=== PATIENT | male | born 1950 | race Caucasian/White ===

== ENCOUNTER 2022-02-10 10:18 | Inpatient (IN) | payer BC, MEDICARE ==
[2022-02-10] MEDS: HEPARIN SOD,PORK IN 0.45% NACL 25,000 UNIT in 0.45% NACL 1 250ML.BAG IV SCH (19:05)
[2022-02-10 19:24] LABS: Basophils % (A) 0 %; Eosinophils # (A) 0.1 k/uL (0-0.7); Eosinophils % (A) 1 %; HCT 42.4 % (39.0-53.0); HGB 14.5 gm/dL (13.0-17.5); Lymphocytes # (A) 1.4 k/uL (1.0-4.8); Lymphocytes % (A) 20 %; MCH 30.9 pg (25.0-35.0); MCHC 34.2 g/dL (31.0-37.0); MCV 90.3 fL (80.0-100.0); Mean Platelet Volume 9.6; Monocytes # (A) 0.3 k/uL (0-1.0); Monocytes % (A) 4 %; Neutrophils # (A) 5.3 k/uL (1.3-7.7); Neutrophils % (A) 74 %; Platelet Count 165 k/uL (150-450); RDW 13.7 % (11.5-15.5); WBC 7.3 k/uL (3.8-10.6)
--- NOTE | 2022-02-10 20:16 | HP ---
HISTORY AND PHYSICAL DATE OF ADMISSION: 02/10/2022 CHIEF COMPLAINT: Orthostatic dizziness. HISTORY OF PRESENT ILLNESS: This is the first known admission for this 71-year-old white male who has been in fairly good health. He was admitted to [facility] last night when he presented with orthostatic dizziness. He denied any chest pain, palpitations, diaphoresis, nausea, vomiting, pain in the jaw, arms, etc. FAMILY HISTORY: He has a family history of heart disease, but he has had none. MEDICATIONS: He takes Flomax for urinary retention. No other medications. ALLERGIES: He is not allergic to any medication. PAST SURGICAL HISTORY: The only surgery he has ever had was removal of a lipoma. SOCIAL HISTORY: He does not smoke or drink. Both his parents had coronary artery disease. He has had no history of any hypertension, hyperlipidemia, palpitations, neurologic problems, etc. PHYSICAL EXAMINATION: Blood pressure 137/85 with a pulse of 74, respirations of 19. He is afebrile. In general he appeared to be well developed, well nourished, no acute distress. Skin color is normal skin is warm, dry. Lymph nodes are not enlarged. Head, ears, eyes, nose, mouth and throat were normal. Neck veins are not distended. Thyroid isn't enlarged. Chest is clear. Cardiac exam is normal sinus rhythm and no murmurs or extra sounds. There is no S3 or S4. The abdomen is soft and nontender without visceromegaly or masses. Bowel sounds present. Extremities are normal. Neurologically he is intact. IMPRESSION: 1. Triple-vessel coronary artery disease. 2. Labyrinthitis. 3. Family history of heart disease. PLAN: 1. Bedrest. 2. Consult with Cardiac surgery and Cardiology. 3. Lipid profile. 4. Prep for coronary artery bypass graft. MMODL / IJN: [id number] /
[2022-02-10] MEDS: HEPARIN SODIUM 1,000 UN/ML (10ML VL) IV PRN (21:45)
[2022-02-10 22:31] LABS: Chol/HDL Ratio 5.39 Ratio; LDL Cholesterol,Calculated 146.5 mg/dL (0.0-131.0)
[2022-02-10] MEDS: SODIUM CHLORIDE 0.9% 1,000 ML IV SCH (23:31)
[2022-02-11 06:31] LABS: Prothrombin Time 11.1 sec (9.0-12.0)
[2022-02-11] MEDS ORDERED: LOSARTAN 50 MG TAB PO SCH (09:00)
[2022-02-11 09:41] LABS: Appearance,Urine Clear (Clear); Bilirubin,Urine Negative (Negative); Blood,Urine Negative (Negative); Color,Urine Light Yellow; Glucose,Urine (UA) Negative (Negative); Ketones,Urine Negative (Negative); Leukocyte Esterase,Urine Negative (Negative); Nitrite,Urine Negative (Negative); PH, Urine 6.5 (5.0-8.0); Protein,Urine Negative (Negative); Specific Gravity,Urine 1.008 (1.001-1.035); Urobilinogen,Urine <2.0 mg/dL (<2.0)
[2022-02-11] MEDS: METOPROLOL TARTRATE 12.5 MG TAB PO SCH (09:41)
[2022-02-11] MEDS: ASPIRIN 81 MG PO SCH (09:41)
[2022-02-11] MEDS: TAMSULOSIN 0.4 MG CAP.ER.24H PO SCH (09:41)
[2022-02-11] MEDS: ATORVASTATIN 80 MG TAB PO SCH (09:41)
--- NOTE | 2022-02-11 09:49 | US ---
EXAMINATION TYPE: US carotid duplex BILAT DATE OF EXAM: 02/11/2022 COMPARISON: NONE CLINICAL HISTORY: preop cardiac surgery. dizziness EXAM MEASUREMENTS: RIGHT: Peak Systolic Velocity (PSV) cm/sec ----- Right CCA: 84.2 ----- Right ICA: 91.5 ----- Right ECA: 80.6 ICA/CCA ratio: 1.1 RIGHT: End Diastole cm/sec ----- Right CCA: 21.7 ----- Right ICA: 30.4 ----- Right ECA: 4.7 LEFT: Peak Systolic Velocity (PSV) cm/sec ----- Left CCA: 82.2 ----- Left ICA: 82.2 ----- Left ECA: 121 ICA/CCA ratio: 1.0 LEFT: End Diastole cm/sec ----- Left CCA: 17.6 ----- Left ICA: 28.9 ----- Left ECA: 7.9 VERTEBRALS (direction of flow): Right Vertebral: Antegrade Left Vertebral: Antegrade Rhythm: Normal Some mild intimal thickening is evident. Small plaque is in the left carotid bulb. No significant cameron nosis seen IMPRESSION: 1. No significant flow limiting stenosis based on velocities. Mild atheromatous plaquing intimal thi ckening is present. Criteria for Assigning % of Stenosis / Diameter reduction (Estimation based on the indirect measurements of the internal carotid artery velocities (ICA PSV). 1. Normal (no stenosis)=ICA PSV < 125 cm/s: ratio < 2.0: ICA EDV<40 cm/s. 2. Less than 50% stenosis=ICA PSV < 125 cm/s: ratio < 2.0: ICA EDV<40 cm/s. 3. 50 to 69% stenosis=ICA PSV of 125 to 230 cm/s: ration 2.0 ? 4.0: ICA EDV 40-100 cm/s. 4. Greater than 70% stenosis to near occlusion= ICA PSV > 230 cm/s: ratio > 4.0: ICA EDV > 100 cm/s. 5. Near occlusion= ICA PSV velocities may be low or undetectable: variable ratio and ICA EDV. 6. Total occlusion=unable to detect flow.
[2022-02-11 10:41] LABS: Basophils % (A) 0 %; Eosinophils # (A) 0.1 k/uL (0-0.7); Eosinophils % (A) 1 %; HCT 45.4 % (39.0-53.0); HGB 15.6 gm/dL (13.0-17.5); Lymphocytes # (A) 1.7 k/uL (1.0-4.8); Lymphocytes % (A) 27 %; MCH 30.9 pg (25.0-35.0); MCHC 34.3 g/dL (31.0-37.0); MCV 90.1 fL (80.0-100.0); Mean Platelet Volume 8.7; Monocytes # (A) 0.3 k/uL (0-1.0); Monocytes % (A) 6 %; Neutrophils # (A) 3.9 k/uL (1.3-7.7); Neutrophils % (A) 64 %; Platelet Count 171 k/uL (150-450); RBC 5.04 m/uL (4.30-5.90); RDW 13.7 % (11.5-15.5); WBC 6.1 k/uL (3.8-10.6)
[2022-02-11 10:55] LABS: Partial Thromboplastin Time 46.4 sec (22.0-30.0); Prothrombin Time 10.4 sec (9.0-12.0)
[2022-02-11 10:58] LABS: ALT 24 U/L (4-49); AST 34 U/L (17-59); African American GFR (CKD) 86 (>60 ml/min/1.73 sqM); Albumin 4.3 g/dL (3.5-5.0); Alkaline Phosphatase 94 U/L (38-126); Anion Gap 6 mmol/L; Blood Urea Nitrogen 14 mg/dL (9-20); Calcium 9.5 mg/dL (8.4-10.2); Carbon Dioxide 32 mmol/L (22-30); Chloride 105 mmol/L (98-107); Glucose 84 mg/dL (74-99); Magnesium 2.2 mg/dL (1.6-2.3); Non-African American GFR(CKD) 74 (>60 ml/min/1.73 sqM); Potassium 4.2 mmol/L (3.5-5.1); Sodium 143 mmol/L (137-145); Total Bilirubin 0.9 mg/dL (0.2-1.3); Total Protein 6.9 g/dL (6.3-8.2)
--- NOTE | 2022-02-11 11:04 | P.CRDCN ---
History of Present Illness History of present illness: HISTORY OF PRESENTING ILLNESS This is a pleasant 71-year-old male past medical history significant for BPH and vertigo. 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 We have been asked to see in consultation for CAD. Patient presents to [facility] as a transfer from [facility] for bypass surgery evaluation. Patient initially presented to [facility] with complaints of vertigo and dyspnea. He was found to have mild elevation of troponin as well as BNP. His EKG shows sinus mechanism with nonspecific STT wave changes. He has no prior documented history of CAD, nonsmoker, no history of hypertension, diabetes, stroke. He has a family history of father having a CABG in the 70s. Due to concern for possible NSTEMI patient underwent cardiac catheterization with Dr. Garrett which revealed distal left main 7080% stenosis. LAD: Second diagonal branch is large in caliber and has 80% stenosis. The proximal LAD area 99% stenosis, the distal LAD is diffuse diseased with an area of stenosis up to 90%. Left circumflex has diffuse disease of 4050%. The mid RCA has a 3040% plaque, distal RCA has intimal disease and at a bifurcation is 99% stenosis. Echocardiogram revealed an EF of 5560%, mild aortic regurgitation, mild mitral regurgitation, mild tricuspid regurgitation, RVSP of 30 mmHg, trace to mild pulmonic regurgitation no pericardial effusion. Patient seen and examined at bedside, no distress. He denies any symptoms of chest pain, shortness of breath, lightheadedness, dizziness. Patient is feeling well. No acute events overnight. Meds: He's currently maintained on aspirin 81 mg daily, atorvastatin 80 mg daily, IV heparin, losartan 50 mg daily, metoprolol tartrate 12.5 mg daily Labs: CBC unremarkable, sodium 143, potassium 4.2, BUN 14, serum creatinine 1.0, magnesium 2.2, triglycerides 24, cholesterol 2:30, LDL 146, HDL 42, UA negative REVIEW OF SYSTEMS At the time of my exam: CONSTITUTIONAL: Denies fever or chills. CARDIOVASCULAR: Denies chest pain, shortness of breath, orthopnea, PND or palpitations. RESPIRATORY: Denies cough. GASTROINTESTINAL: Denies abdominal pain, diarrhea, constipation, nausea or vom iting. MUSCULOSKELETAL: Denies myalgias. NEUROLOGIC: Denies numbness, tingling, headache or weakness. ENDOCRINE: Denies fatigue, weight change, polydipsia or polyurina. GENITOURINARY: Denies burning, hematuria or urgency with micturation. HEMATOLOGIC: Denies history of anemia or bleeding. PHYSICAL EXAMINATION Blood pressure 151/80, heart rate 57, afebrile, oxygen saturation 95% room air Patient maintained sinus mechanism with heart rate in the 50s CONSTITUTIONAL: No apparent distress. HEENT: Head is normocephalic. Pupils are equal, round. Sclerae anicteric. Mucous membranes of the mouth are moist. No JVD. No carotid bruit. CHEST EXAMINATION: Lungs are clear to auscultation. No chest wall tenderness is noted on palpation or with deep breathing. HEART EXAMINATION: Regular rate and rhythm. S1, S2 heard. No murmurs, gallops or rub. ABDOMEN: Soft, nontender. Positive bowel sounds. EXTREMITIES: 2+ peripheral pulses, no lower extremity edema and no calf tenderness. NEUROLOGIC EXAMINATION: Patient is awake, alert and oriented x3. SKIN: Right radial cath site clean dry intact no hematoma ASSESSMENT Severe Triple vessel coronary artery disease History of vertigo BPH Family history of coronary artery disease PLAN Continue aspirin, statin, losartan and beta marcin Continue IV Heparin CT Surgery consulted for bypass evaluation We will continue to monitor patient Further recommendations based on clinical course Nurse practitioner note has been reviewed by physician. Signing provider agrees with the documented findings, assessment, and plan of care. Past Medical History Past Medical History: Prostate Disorder Additional Past Medical History / Comment(s): Vertigo History of Any Multi-Drug Resistant Organisms: None Reported Additional Past Surgical History / Comment(s): lypoma rt shoulder 25yrs ago, arthroscopy lt knee forty years ago. Past Anesthesia/Blood Transfusion Reactions: No Reported Reaction Past Psychological History: No Psychological Hx Reported Smoking Status: Never smoker Past Alcohol Use History: Occasional Past Drug Use History: None Reported - Past Family History Mother Family Medical History: Coronary Artery Disease (CAD) Additional Family Medical History / Comment(s): "old age" Father Family Medical History: Coronary Artery Disease (CAD) Additional Family Medical History / Comment(s): CABG in his 70s Medications and Allergies Home Medications Medication Instructions Recorded Confirmed Type Tamsulosin HCl [Flomax] 0.4 mg PO HS 02/10/22 02/10/22 History Allergies Allergy/AdvReac Type Severity Reaction Status Date / Time No Known Allergies Allergy Verified 02/10/22 19:43 Physical Exam Vitals: Vital Signs Temp Pulse Resp BP Pulse Ox 02/11/22 08:00 57 L 16 151/80 95 02/11/22 04:00 98.8 F 55 L 16 164/79 94 L 02/11/22 02:00 58 L 18 02/11/22 00:00 98.0 F 58 L 18 169/85 96 02/10/22 22:36 98.2 F 56 L 16 150/77 95 02/10/22 20:00 56 L 16 02/10/22 18:23 57 L 16 138/65 Intake and Output 02/10/22 02/11/22 02/11/22 22:59 06:59 14:59 Intake Total 26.208 59.832 Balance 26.208 59.832 Intake: Intake, IV Titration 26.208 59.832 Amount Heparin Sod,Pork in 0.45% 26.208 59.832 NaCl 25,000 unit In 0.45 % NaCl 1 250ml.bag @ 12 UNITS/KG/HR 10.92 mls/hr IV .[id number] [facility] Rx#: [id number] Other: Voiding Method Toilet Toilet Toilet # Voids 1 3 Weight 91 kg 92.6 kg Results 02/11/22 10:12 Coagulation 02/10/22 02/10/22 02/11/22 Range/Units 19:12 19:12 00:08 PT 11.1 (9.0-12.0) sec APTT 33.1 H 145.5 H* (22.0-30.0) sec Lipids 02/10/22 Range/Units 19:05 Triglycerides 204.00 H (0.00-149.00) mg/dL Cholesterol 230.00 H (0.00-200.00) mg/dL HDL Cholesterol 42.70 (40.00-60.00) mg/dL Cholesterol/HDL Ratio 5.39 Ratio CBC 02/10/22 02/11/22 Range/Units 19:05 10:12 WBC 7.3 6.1 (3.8-10.6) k/uL RBC 4.70 5.04 (4.30-5.90) m/uL Hgb 14.5 15.6 (13.0-17.5) gm/dL Hct 42.4 45.4 (39.0-53.0) % Plt Count 165 171 (150-450) k/uL Current Medications Generic Name Dose Route Start Last Admin Trade Name Shirley PRN Reason Stop Dose Admin Aspirin 81 mg 02/11/22 09:00 02/11/22 09:41 Aspirin 81 Mg PO 81 mg DAILY [facility]ANSEL Administration Atorvastatin Calcium 80 mg 02/11/22 09:00 02/11/22 09:41 Atorvastatin 80 Mg Tab PO 80 mg DAILY [facility]ANSEL Administration Heparin Sodium (Porcine) 0 unit 02/10/22 18:48 02/10/22 21:45 Heparin Sodium 1,000 Un/Ml (10ml Vl) IV 4,000 unit PER PROTOCOL PRN Administration Low PTT Protocol Heparin Sodium/Sodium Chloride 250 mls @ 10.92 mls/hr 02/10/22 19:00 02/11/22 03:51 25,000 unit/ Sodium Chloride IV 11 units/kg/hr .[id number] [facility]AN[facility] 10.01 mls/hr Titration Protocol 12 UNITS/KG/HR Sodium Chloride 1,000 mls @ 20 mls/hr 02/10/22 19:00 02/10/22 23:31 Saline 0.9% IV Not Given .Q24H [facility] Losartan Potassium 50 mg 02/11/22 09:00 02/11/22 09:41 Losartan 50 Mg Tab PO 50 mg DAILY HANSEL Administration Metoprolol Tartrate 12.5 mg 02/11/22 09:00 02/11/22 09:41 Metoprolol Tartrate 12.5 Mg Tab PO 12.5 mg DAILY HANSEL Administration Tamsulosin HCl 0.4 mg 02/11/22 08:30 02/11/22 09:41 Tamsulosin 0.4 Mg Cap.Er.24h PO 0.4 mg [id number] HANSEL Administration Intake and Output 02/10/22 02/11/22 02/11/22 22:59 06:59 14:59 Intake Total 59.832 Balance 59.832 Intake: Intake, IV Titration 59.832 Amount Heparin Sod,Pork in 0.45% . 59.832 NaCl 25,000 unit In 0.45 % NaCl 1 250ml.bag @ 12 UNITS/KG/HR 10.92 mls/hr IV .[id number] [facility] Rx#: [id number] Other: Voiding Method Toilet Toilet Toilet # Voids 1 3 Weight 91 kg 92.6 kg 02/11/22 10:12
--- NOTE | 2022-02-11 11:16 | P.GSCN ---
History of Present Illness Consult date: 02/11/22 Reason for Consult: CAD with left main disease Requesting physician: Angelica Garrett History of present illness: This is a 71-year-old gentleman who has not followed with a primary care physician on an outpatient basis in the last 2 years. He has a previous medical history of vertigo and BPH, denies any history of heart disease, lung disease, diabetes, stroke, kidney or liver disease. Denies ever smoking. He presented to [facility] 2 days ago with complaints of dizziness which he has a history of but was not resolved with his normal Antivert medication, as well as shortness of breath and headache/neck pain. He denied any chest pain, or edema, or any other aggravating or alleviating symptoms. At [facility] EKG was completed demonstrating sinus rhythm with nonspecific ST changes, troponin was elevated and patient was ruled in for non-STEMI. He was taken to the [facility] and heart catheterization revealed distal left main stenosis 70-80%, proximal LAD stenosis 99%, distal LAD stenosis 90%, second diagonal stenosis 80%, left circumflex stenosis 40-50%, mid RCA stenosis 30-40%, distal RCA stenosis at the bifurcation 99%. Of note he also had a transthoracic echocardiogram demonstrating normal left ventricular systolic function with EF 55-60%, mild aortic insufficiency, mild mitral and tricuspid regurgitation. Due to his heart catheterization findings patient was transferred from [facility] to [facility] for cardiothoracic surgery consultation for surgical recommendations. Review of Systems Review of systems was completed it was negative except as noted - Cardiovascular Reports as per HPI, Reports shortness of breath - Neurological Reports as per HPI, Reports headaches, Reports vertigo Past Medical History Past Medical History: Prostate Disorder Additional Past Medical History / Comment(s): Vertigo History of Any Multi-Drug Resistant Organisms: None Reported Additional Past Surgical History / Comment(s): lypoma rt shoulder 25yrs ago, arthroscopy lt knee forty years ago. Past Anesthesia/Blood Transfusion Reactions: No Reported Reaction Past Psychological History: No Psychological Hx Reported Smoking Status: Never smoker Past Alcohol Use History: Occasional Past Drug Use History: None Reported - Past Family History Mother Family Medical History: Coronary Artery Disease (CAD) Additional Family Medical History / Comment(s): "old age" Father Family Medical History: Coronary Artery Disease (CAD) Additional Family Medical History / Comment(s): CABG in his 70s Medications and Allergies Home Medications Medication Instructions Recorded Confirmed Type Tamsulosin HCl [Flomax] 0.4 mg PO HS 02/10/22 02/10/22 History Allergies Allergy/AdvReac Type Severity Reaction Status Date / Time No Known Allergies Allergy Verified 02/10/22 19:43 Surgical - Exam Vital Signs Pulse Resp BP 57 L 16 138/65 02/10/22 18:23 02/10/22 18:23 02/10/22 18:23 CONSTITUTIONAL: Awake and alert, appears comfortable, cooperative, well-develo ped, well-nourished, no pain, no acute distress EYES: Pupils equal, round, reactive to light, normal ocular movement ENT: Moist mucous membranes without oral lesions present NECK: No masses, no bruits, trachea midline RESPIRATORY: Lungs sounds clear to auscultation bilaterally. Respirations ev en, nonlabored. Currently on 2 L nasal cannula with oxygen saturation 98%. Strong cough. No chest wall deformities. No clubbing or cyanosis present CARDIOVASCULAR: S1, S2 present. Slow but regular rate and rhythm, sinus bradycardia on telemetry with heart rate in the high 50s. Palpable peripheral pulses bilaterally. No edema present. No calf pain or tenderness noted. No significant lower extremity varicosities noted. GASTROINTESTINAL: Abdomen soft, nontender, nondistended without masses or organomegaly noted. There is no rebound or guarding present. Active bowel sounds present 4 quadrants. GENITOURINARY: Deferred INTEGUMENTARY: Skin is warm and dry with evidence of good perfusion. NEUROLOGIC: Cranial nerves II through XII intact, normal coordination, no obvious motor or sensory deficits, speech is normal MUSKULOSKELETAL: Able to move all extremities, strength equal bilaterally, normal posture PSYCHIATRIC: Alert and oriented to person place and time, appropriate affect, intact judgment and insight Results - Labs 02/11/22 10:12 02/11/22 10:12 Abnormal Lab Results - Last 24 Hours (Table) 02/10/22 02/10/22 02/11/22 Range/Units 19:05 19:12 00:08 APTT 33.1 H 145.5 H* (22.0-30.0) sec Triglycerides 204.00 H (0.00-149.00) mg/dL Cholesterol 230.00 H (0.00-200.00) mg/dL LDL Cholesterol, Calc 146.5 H (0.0-131.0) mg/dL VLDL Cholesterol, Calc 40.80 H (5.00-40.00) mg/dL Diabetes panel 02/10/22 Range/Units 19:05 Triglycerides 204.00 H (0.00-149.00) mg/dL HDL Cholesterol 42.70 (40.00-60.00) mg/dL - Imaging Chest x-ray: pending Additional studies: Heart cath and echocardiogram films were reviewed with Dr. Barry Assessment and Plan Assessment: 1. Coronary artery disease with left main disease, non-STEMI this admission 2. Undiagnosed hyperlipidemia, cholesterol 230, LDL 146, triglycerides 204 3. History of BPH 4. History of vertigo 5. Family history of coronary artery disease 6. Never smoker Plan: The patient was seen and examined at the bedside with Dr. Barry and the patient's was present. Chart/diagnostics were reviewed in detail. The usual perioperative course of coronary artery bypass surgery was discussed in detail with the patient and his , risks and benefits were reviewed, all questions were answered. Preoperative testing has been initiated. We did discuss the nature of the patient's diffuse coronary artery disease and that bypass surgery may not provide long-term outcomes as it is possible his grafts will close down without good target vessels to plug into. This was also discussed between Dr. Jhonny Garrett, with recommendations to continue forward with plans for surgical revascularization if patient is agreeable. Recommend continuing aspirin, statin, beta marcin therapy. Once all preoperative testing has been completed we will calculate STS risk score and discuss with the patient. We will get 5 m walk test completed. Patient is agreeable to surgery, and our plan is for coronary artery bypass graft surgery with left internal mammary artery and endoscopic vein harvesting, ligation of the left atrial appendage on 02/14/[address] Barry. Medical management of other co morbidities per primary care service. Thank you's Dr. Garrett for this consult. We will continue to follow along with you and make further recommendations as appropriate. I have personally seen and examined the patient, performed the documentation and the assessment and plan as written. Number of minutes spent on the visit: 30. EDUAR Gonzalez
--- NOTE | 2022-02-11 11:43 | XR ---
EXAMINATION TYPE: XR chest 2V DATE OF EXAM: 02/11/2022 COMPARISON: None INDICATION: Presurgical clearance TECHNIQUE: Frontal and lateral views of the chest are obtained. FINDINGS: The heart size is normal. The pulmonary vasculature is normal. Minimal right pleural effusion may be present. Posterior left pleural effusion is not excluded.. IMPRESSION: 1. Suggestion of small bilateral pleural effusions.
--- NOTE | 2022-02-11 18:41 | PN ---
PROGRESS NOTE CHIEF COMPLAINT: Coronary artery disease. HISTORY OF PRESENT ILLNESS: This gentleman is doing well. He is feeling fine. He has had no chest pain, shortness of breath, diaphoresis, arrhythmias, etc. PHYSICAL EXAMINATION: Chest is clear. Cardiac exam is normal. Abdomen is soft, nontender. IMPRESSION: Coronary artery disease. PLAN: Await evaluation by Cardiac Surgery for possible CABG. MMODL / IJN: [id number] /
[2022-02-11] MEDS: SODIUM CHLORIDE 0.9% 1,000 ML IV SCH (21:06)
[2022-02-11] MEDS: LOSARTAN 50 MG TAB PO SCH (21:06)
[2022-02-11] MEDS: HEPARIN SOD,PORK IN 0.45% NACL 25,000 UNIT in 0.45% NACL 1 250ML.BAG IV SCH (21:07)
[2022-02-11 21:37] LABS: Hepatitis A Antibody IgM Nonreactive (Nonreactive); Hepatitis B Core IgM Nonreactive (Nonreactive); Hepatitis B Surface Antigen Nonreactive (Nonreactive); Hepatitis C IgG Antibody Nonreactive (Nonreactive)
[2022-02-12 08:10] LABS: Calcium 9.3 mg/dL (8.4-10.2); Potassium 4.4 mmol/L (3.5-5.1)
--- NOTE | 2022-02-12 08:28 | P.PN ---
Subjective Progress Note Date: 02/12/22 Principal diagnosis: Coronary artery disease with left main disease, non-STEMI this admission. Previous medical history of undiagnosed hyperlipidemia and hypertension, BPH, vertigo, family history of coronary artery disease, never smoker The patient was seen and examined this morning up ambulating in his room without difficulty. Denies any chest pain or shortness of breath. No new questions regarding surgery which is planned for Monday, although the patient did say when he comes out of anesthesia he is a bit crazy. STS risk score was calculated, patient felt to be low risk with STS risk score less than 1%. No new concerns at this time. Objective - Vital Signs Vital signs: Vital Signs Temp 97.8 F 02/12/22 04:00 Pulse 52 L 02/12/22 04:00 Resp 16 02/12/22 04:00 BP 165/76 02/12/22 04:00 Pulse Ox 96 02/12/22 04:00 FiO2 Intake & Output 02/11/22 02/12/22 02/12/22 18:59 06:59 18:59 Intake Total 163.96 Output Total 600 Balance -600 163.96 Weight 92.6 kg Intake: Intake, IV Titration 163.96 Amount Heparin Sod,Pork in 0.45% 163.96 NaCl 25,000 unit In 0.45 % NaCl 1 250ml.bag @ 12 UNITS/KG/HR 10.92 mls/hr IV .[id number] [facility] Rx#: [id number] Output: Urine 600 Other: Voiding Method Toilet Toilet # Voids 4 # Bowel Movements 0 - Exam CONSTITUTIONAL: Appears comfortable, cooperative, no acute distress RESPIRATORY: Lungs sounds clear bilaterally. Respirations even, nonlabored. Currently on room air with oxygen saturation 96%. Able to achieve 2500 mL on incentive spirometry. Strong cough. CARDIOVASCULAR: S1, S2 present. Slow but regular rate and rhythm, sinus bradycardia on telemetry. Palpable peripheral pulses bilaterally. No edema present. No calf pain or tenderness noted. GASTROINTESTINAL: Abdomen soft, nontender, nondistended. Active bowel sounds present 4 quadrants. Tolerating diet. GENITOURINARY: Continues to void INTEGUMENTARY: Skin is warm and dry with evidence of good perfusion. NEUROLOGIC: Cranial nerves II through XII intact MUSKULOSKELETAL: Able to move all extremities, strength equal bilaterally, gait normal PSYCHIATRIC: Alert and oriented to person place and time, appropriate affect, intact judgment and insight - Labs CBC & Chem 7: 02/11/22 10:12 02/12/22 07:30 Labs: Abnormal Lab Results - Last 24 Hours (Table) 02/11/22 02/11/22 02/11/22 Range/Units 10:12 10:12 14:36 APTT 46.4 H (22.0-30.0) sec Carbon Dioxide 32 H (22-30) mmol/L Glucose (74-99) mg/dL Crossmatch See Detail 02/12/22 02/12/22 Range/Units 07:30 07:30 APTT 45.1 H (22.0-30.0) sec Carbon Dioxide (22-30) mmol/L Glucose 136 H (74-99) mg/dL Crossmatch Microbiology - Last 24 Hours (Table) 02/11/22 11:00 Nasal Screen MRSA/MSSA - Preliminary Nasal Swab Assessment and Plan Assessment: 1. Coronary artery disease with left main disease, non-STEMI this admission 2. Undiagnosed hyperlipidemia, cholesterol 230, LDL 146, triglycerides 204 3. Hypertension 4. History of BPH 5. History of vertigo 6. Family history of coronary artery disease 7. Never smoker, preoperative FEV1 72% of predicted Plan: 1. Continue aspirin, statin, beta marcin, IV heparin. 2. Would prefer to hold off [place]/arm to prevent vaso-plegia postoperatively, prefer to switch to hydralazine for blood pressure control, defer to cardiology 3. Encourage incentive spirometry 4. Increase activity, continue to ambulate as tolerated 5. Our plan is for coronary artery bypass graft surgery with left internal mammary artery and endoscopic vein harvesting, ligation of the left atrial appendage on 02/14/[address] Barry 6. Medical management of other comorbidities per primary care service
[2022-02-12] MEDS: ATORVASTATIN 80 MG TAB PO SCH (09:36)
[2022-02-12] MEDS: TAMSULOSIN 0.4 MG CAP.ER.24H PO SCH (09:36)
[2022-02-12] MEDS: ASPIRIN 81 MG PO SCH (09:36)
[2022-02-12] MEDS: METOPROLOL TARTRATE 12.5 MG TAB PO SCH (09:37)
[2022-02-12] MEDS: LOSARTAN 50 MG TAB PO SCH (09:37)
--- NOTE | 2022-02-12 09:58 | P.CNPUL ---
History of Present Illness Consult date: 02/11/22 Chief complaint: Preoperative only evaluation, coronary artery disease History of present illness: 71-year-old male patient, presented to [facility] today's ago with dizziness and some shortness of breath and headache. Denied having any chest pain. EKG showed some nonspecific ST segment changes and troponins were elevated and the patient was diagnosed having an acute non-ST segment elevation myocardial infarction. Cardiac catheterization was done and the patient was found to have left main and also 70-80%, proximal LAD 99%, distal LAD 90%, second diagonal branch of 80%, circumflex of 40-50%, RCA of 30-40%, distal RCA of 99%. Transthoracic echocardiogram showed a preserved LV function with an ejection fraction of 55-60%. The patient was transferred to our hospital for coronary artery bypass surgery. Comorbid conditions include BPH. The chest x- ray is suggestive of a small pleural effusion.. The patient has no history of asthma. No history of emphysema.Does not see a physician on a regular basis. The patient denies having any shortness of breath at this point in time. LDL cholesterol was 46. Review of Systems CONSTITUTIONAL: Denies fever or chills. CARDIOVASCULAR: Denies chest pain, shortness of breath, orthopnea, PND or palpitations. RESPIRATORY: Denies cough. GASTROINTESTINAL: Denies abdominal pain, diarrhea, constipation, nausea or vomiting. MUSCULOSKELETAL: Denies myalgias. NEUROLOGIC: Denies numbness, tingling, headache or weakness. ENDOCRINE: Denies fatigue, weight change, polydipsia or polyurina. GENITOURINARY: Denies burning, hematuria or urgency with micturation. HEMATOLOGIC: Denies history of anemia or bleeding. Past Medical History Past Medical History: Coronary Artery Disease (CAD), Prostate Disorder Additional Past Medical History / Comment(s): Vertigo History of Any Multi-Drug Resistant Organisms: None Reported Additional Past Surgical History / Comment(s): lypoma rt shoulder 25yrs ago, arthroscopy lt knee forty years ago. Past Anesthesia/Blood Transfusion Reactions: No Reported Reaction Past Psychological History: No Psychological Hx Reported Smoking Status: Never smoker Past Alcohol Use History: Occasional Past Drug Use History: None Reported - Past Family History Mother Family Medical History: Coronary Artery Disease (CAD) Additional Family Medical History / Comment(s): "old age" Father Family Medical History: Coronary Artery Disease (CAD) Additional Family Medical History / Comment(s): CABG in his 70s Medications and Allergies Home Medications Medication Instructions Recorded Confirmed Type Tamsulosin HCl [Flomax] 0.4 mg PO HS 02/10/22 02/10/22 History Allergies Allergy/AdvReac Type Severity Reaction Status Date / Time No Known Allergies Allergy Verified 02/10/22 19:43 Physical Exam Vitals: Vital Signs Temp Pulse Resp BP Pulse Ox 02/11/22 12:00 58 L 16 129/72 94 L 02/11/22 08:00 57 L 16 151/80 95 02/11/22 04:00 98.8 F 55 L 16 164/79 94 L 02/11/22 02:00 58 L 18 02/11/22 00:00 98.0 F 58 L 18 169/85 96 02/10/22 22:36 98.2 F 56 L 16 150/77 95 02/10/22 20:00 56 L 16 02/10/22 18:23 57 L 16 138/65 Intake and Output 02/11/22 02/11/22 02/11/22 06:59 14:59 22:59 Intake Total 59.832 Output Total 600 Balance 59.832 -600 Intake: Intake, IV Titration 59.832 Amount Heparin Sod,Pork in 0.45% 59.832 NaCl 25,000 unit In 0.45 % NaCl 1 250ml.bag @ 12 UNITS/KG/HR 10.92 mls/hr IV .[id number] [facility] Rx#: [id number] Output: Urine 600 Other: Voiding Method Toilet Toilet # Voids 3 Weight 92.6 kg CONSTITUTIONAL: Awake and alert, appears comfortable, cooperative, well- developed, well-nourished, no pain, no acute distress EYES: Pupils equal, round, reactive to light, normal ocular movement ENT: Moist mucous membranes without oral lesions present NECK: No masses, no bruits, trachea midline RESPIRATORY: Lungs sounds clear to auscultation bilaterally. Respirations even, nonlabored. Currently on 2 L nasal cannula with oxygen saturation 98%. Strong cough. No chest wall deformities. No clubbing or cyanosis present CARDIOVASCULAR: S1, S2 present. Slow but regular rate and rhythm, sinus bradycardia on telemetry with heart rate in the high 50s. Palpable peripheral pulses bilaterally. No edema present. No calf pain or tenderness noted. No significant lower extremity varicosities noted. GASTROINTESTINAL: Abdomen soft, nontender, nondistended without masses or organomegaly noted. There is no rebound or guarding present. Active bowel sounds present 4 quadrants. GENITOURINARY: Deferred INTEGUMENTARY: Skin is warm and dry with evidence of good perfusion. NEUROLOGIC: Cranial nerves II through XII intact, normal coordination, no obvious motor or sensory deficits, speech is normal MUSKULOSKELETAL: Able to move all extremities, strength equal bilaterally, normal posture PSYCHIATRIC: Alert and oriented to person place and time, appropriate affect, intact judgment and insight Results - Laboratory Findings CBC and BMP: 02/11/22 10:12 02/11/22 10:12 PT/INR, D-dimer PT 10.4 sec (9.0-12.0) 02/11/22 10:12 INR 1.0 (<1.2) 02/11/22 10:12 Abnormal lab findings: Abnormal Labs 02/10/22 02/10/22 02/11/22 19:05 19:12 00:08 APTT 33.1 H 145.5 H* Carbon Dioxide Triglycerides 204.00 H Cholesterol 230.00 H LDL Cholesterol, Calc 146.5 H VLDL Cholesterol, Calc 40.80 H 02/11/22 02/11/22 10:12 10:12 APTT 46.4 H Carbon Dioxide 32 H Triglycerides Cholesterol LDL Cholesterol, Calc VLDL Cholesterol, Calc Assessment and Plan Plan: Coronary artery disease with left main disease, non-STEMI this admission please refer to the results of the cardiac catheterization. The patient has multivessel coronary artery disease and the patient will need bypass surgery. The patient ruled in for an acute non-STEMI. The patient got transferred to [facility] for coronary artery bypass BPH Hyperlipidemia with an LDL level of 146 Vertigo Plan Continue IV heparin *The patient beta marcin with metoprolol Obtain a bedside spirometry measured the patient's FEV1 Echocardiogram showed a preserved LV function Chest x-ray shows small pleural effusions Hemodynamically stable Carotid Dopplers Complete a preoperative cardiac evaluation We'll continue to follow.
--- NOTE | 2022-02-12 11:17 | P.PN ---
Subjective Progress Note Date: 02/12/22 This is Basil ca NP, I'm dictating on behalf of Dr. Alejo's H&P and A&P. Patient was interviewed and examined. Patient is a pleasant 71-year-old male who initially presented to the hospital with exacerbation of CHF. Patient underwent cardiac catheterization due to concerns for possible N STEMI, which did show need for CABG. Patient is scheduled for CABG this coming Monday. This morning patient reports no chest pain, no shortness of breath, no dizziness. Patient is to be up out of bed. He should be using his incentive spirometer. Please check manual blood pressures. Continue heparin drip. GENERAL: Well-appearing, well-nourished and in no acute distress. NECK: Supple without JVD or thyromegaly. LUNGS: Breath sounds clear to auscultation bilaterally. Respiration equal and unlabored. No wheezes, rales or rhonchi. HEART: Regular rate and rhythm without murmurs, rubs or gallops. S1 and S2 heard. EXTREMITIES: Normal range of motion, no edema. No clubbing or cyanosis. Peripheral pulses intact and strong. VITALS: Temp 97.8, pulse 56, respirations 17, blood pressure 120/70, O2 saturation 96% on room air TELEMETRY: Normal sinus rhythm LABS: White count 6.1, hemoglobin 15.6, sodium 140, potassium 4.4, B1 14, creatinine 1.01, magnesium 2.2, triglycerides 204, cholesterol 2:30, LDL 146.5, HDL 42.7, TSH 4.030 IMPRESSION/PLAN: 1. CAD-CABG scheduled for Monday. Hold are present prior to procedure. Continue heparin drip. Patient should be encouraged to use his incentive spirometer. Encourage patient to be up in chair. 2. Hypertension-please check blood pressures manually. Continue medications as prescribed. Further recommendations based on patient's clinical course. Objective - Vital Signs Vital signs: Vital Signs Temp 97.8 F 02/12/22 04:00 Pulse 52 L 02/12/22 04:00 Resp 16 02/12/22 04:00 BP 165/76 02/12/22 04:00 Pulse Ox 96 02/12/22 04:00 FiO2 Intake & Output 02/11/22 02/12/22 02/12/22 18:59 06:59 18:59 Intake Total 163.96 Output Total 600 Balance -600 163.96 Weight 92.6 kg Intake: Intake, IV Titration 163.96 Amount Heparin Sod,Pork in 0.45% 163.96 NaCl 25,000 unit In 0.45 % NaCl 1 250ml.bag @ 12 UNITS/KG/HR 10.92 mls/hr IV .[id number] [facility] Rx#: [id number] Output: Urine 600 Other: Voiding Method Toilet Toilet # Voids 4 # Bowel Movements 0 - Labs CBC & Chem 7: 02/11/22 10:12 02/12/22 07:30 Labs: Abnormal Lab Results - Last 24 Hours (Table) 02/11/22 02/11/22 02/11/22 Range/Units 10:12 10:12 14:36 APTT 46.4 H (22.0-30.0) sec Carbon Dioxide 32 H (22-30) mmol/L Crossmatch See Detail Microbiology - Last 24 Hours (Table) 02/11/22 11:00 Nasal Screen MRSA/MSSA - Preliminary Nasal Swab
--- NOTE | 2022-02-12 11:56 | P.PN ---
Subjective Progress Note Date: 02/12/22 71-year-old male patient, presented to [facility] today's ago with dizziness and some shortness of breath and headache. Denied having any chest pain. EKG showed some nonspecific ST segment changes and troponins were elevated and the patient was diagnosed having an acute non-ST segment elevation myocardial infarction. Cardiac catheterization was done and the patient was found to have left main and also 70-80%, proximal LAD 99%, distal LAD 90%, second diagonal branch of 80%, circumflex of 40-50%, RCA of 30-40%, distal RCA of 99%. Transthoracic echocardiogram showed a preserved LV function with an ejection fraction of 55-60%. The patient was transferred to our hospital for coronary artery bypass surgery. Comorbid conditions include BPH. The chest x- ray is suggestive of a small pleural effusion.. The patient has no history of asthma. No history of emphysema.Does not see a physician on a regular basis. The patient denies having any shortness of breath at this point in time. LDL cholesterol was 46. 02/12/2022, the patient is being seen for a follow-up. Clinically stable. 3 of any chest pain. Hemodynamically stable. Awaiting cardiac bypass surgery. The patient is also oozing incentive spirometer. He remains on IV heparin. Labs from today shows normal electrolytes, creatinine is at 1.01 with a BUN of 14 and the PTT is therapeutic at 45. Objective - Vital Signs Vital signs: Vital Signs Temp 97.8 F 02/12/22 08:30 Pulse 56 L 02/12/22 08:30 Resp 17 02/12/22 08:30 BP 120/70 02/12/22 08:30 Pulse Ox 96 02/12/22 08:30 FiO2 Intake & Output 02/11/22 02/12/22 02/12/22 18:59 06:59 18:59 Intake Total 163.96 480 Output Total 600 Balance -600 163.96 480 Weight 92.6 kg Intake: Intake, IV Titration 163.96 Amount Heparin Sod,Pork in 0.45% 163.96 NaCl 25,000 unit In 0.45 % NaCl 1 250ml.bag @ 12 UNITS/KG/HR 10.92 mls/hr IV .[id number] [facility] Rx#: [id number] Oral 480 Output: Urine 600 Other: Voiding Method Toilet Toilet # Voids 4 # Bowel Movements 0 - Exam CONSTITUTIONAL: Awake and alert, appears comfortable, cooperative, well- developed, well-nourished, no pain, no acute distress EYES: Pupils equal, round, reactive to light, normal ocular movement ENT: Moist mucous membranes without oral lesions present NECK: No masses, no bruits, trachea midline RESPIRATORY: Lungs sounds clear to auscultation bilaterally. Respirations even, nonlabored. Currently on 2 L nasal cannula with oxygen saturation 98%. Strong cough. No chest wall deformities. No clubbing or cyanosis present CARDIOVASCULAR: S1, S2 present. Slow but regular rate and rhythm, sinus bradycardia on telemetry with heart rate in the high 50s. Palpable peripheral pulses bilaterally. No edema present. No calf pain or tenderness noted. No significant lower extremity varicosities noted. GASTROINTESTINAL: Abdomen soft, nontender, nondistended without masses or organomegaly noted. There is no rebound or guarding present. Active bowel sounds present 4 quadrants. GENITOURINARY: Deferred INTEGUMENTARY: Skin is warm and dry with evidence of good perfusion. NEUROLOGIC: Cranial nerves II through XII intact, normal coordination, no obvious motor or sensory deficits, speech is normal MUSKULOSKELETAL: Able to move all extremities, strength equal bilaterally, normal posture PSYCHIATRIC: Alert and oriented to person place and time, appropriate affect, intact judgment and insight - Labs CBC & Chem 7: 02/11/22 10:12 02/12/22 07:30 Labs: Abnormal Lab Results - Last 24 Hours (Table) 02/11/22 02/11/22 02/11/22 Range/Units 10:12 10:12 14:36 APTT 46.4 H (22.0-30.0) sec Carbon Dioxide 32 H (22-30) mmol/L Glucose (74-99) mg/dL Crossmatch See Detail 02/12/22 02/12/22 Range/Units 07:30 07:30 APTT 45.1 H (22.0-30.0) sec Carbon Dioxide (22-30) mmol/L Glucose 136 H (74-99) mg/dL Crossmatch Microbiology - Last 24 Hours (Table) 02/11/22 11:00 Nasal Screen MRSA/MSSA - Preliminary Nasal Swab Assessment and Plan Plan: Coronary artery disease with left main disease, non-STEMI this admission please refer to the results of the cardiac catheterization. The patient has multivessel coronary artery disease and the patient will need bypass surgery. The patient ruled in for an acute non-STEMI. The patient got transferred to [facility] for coronary artery bypass BPH Hyperlipidemia with an LDL level of 146 Vertigo Plan Clinically stable Lower S4 any pulmonate complications. When the patient is a lifetime nonsmoker Continue IV heparin Continue The patient beta marcin with metoprolol bedside spirometry measured the patient's FEV1 was noted Echocardiogram showed a preserved LV function Chest x-ray shows small pleural effusions Hemodynamically stable We'll continue to follow.
[2022-02-12] MEDS: hydrALAZINE HCL 25 MG TAB PO SCH ×3 (12:26→21:07)
--- NOTE | 2022-02-12 17:20 | PN ---
PROGRESS NOTE DATE OF SERVICE: 02/12/2022 CHIEF COMPLAINT: Coronary artery disease. HISTORY OF PRESENT ILLNESS: This gentleman is comfortable. He has had no chest pain, shortness of breath, etc. Surgery is probably going to go off on Monday. PHYSICAL EXAMINATION: Chest is clear. Cardiac exam is normal. Abdomen is soft, nontender. IMPRESSION: Coronary artery disease. PLAN: Bypass procedure on Monday. MMODL / IJN: [id number] /
[2022-02-12] MEDS: SODIUM CHLORIDE 0.9% 1,000 ML IV SCH (17:36)
[2022-02-12] MEDS: HEPARIN SOD,PORK IN 0.45% NACL 25,000 UNIT in 0.45% NACL 1 250ML.BAG IV SCH (22:41)
[2022-02-13] MEDS: METOPROLOL TARTRATE 12.5 MG TAB PO SCH (08:05)
[2022-02-13] MEDS: hydrALAZINE HCL 50 MG TAB PO SCH ×4 (08:05→21:35)
[2022-02-13] MEDS: ASPIRIN 81 MG PO SCH (08:05)
[2022-02-13] MEDS: ATORVASTATIN 80 MG TAB PO SCH (08:05)
[2022-02-13] MEDS: TAMSULOSIN 0.4 MG CAP.ER.24H PO SCH (08:05)
--- NOTE | 2022-02-13 08:07 | P.PN ---
Subjective Progress Note Date: 02/13/22 Principal diagnosis: Coronary artery disease with left main disease, non-STEMI this admission. Previous medical history of undiagnosed hyperlipidemia and hypertension, BPH, vertigo, family history of coronary artery disease, never smoker The patient was seen and examined this morning sitting up in a recliner eating breakfast. Denies any chest pain or shortness of breath. No new questions regarding surgery which is planned for Monday, although the patient did say when he comes out of anesthesia he is a bit crazy. No new concerns at this time. Objective - Vital Signs Vital signs: Vital Signs Temp 98.0 F 02/13/22 04:00 Pulse 51 L 02/13/22 04:00 Resp 18 02/13/22 04:00 BP 163/84 02/13/22 04:00 Pulse Ox 96 02/13/22 04:00 FiO2 Intake & Output 02/12/22 02/13/22 02/13/22 18:59 06:59 18:59 Intake Total 1200 250 Output Total 1400 Balance -200 250 Intake: Intake, IV Titration 250 Amount Heparin Sod,Pork in 0.45% 250 NaCl 25,000 unit In 0.45 % NaCl 1 250ml.bag @ 12 UNITS/KG/HR 10.92 mls/hr IV .[id number] [facility] Rx#: [id number] Oral 1200 Output: Urine 1400 Other: Voiding Method Toilet Toilet # Voids 3 - Exam CONSTITUTIONAL: Appears comfortable, cooperative, no acute distress RESPIRATORY: Lungs sounds clear bilaterally. Respirations even, nonlabored. Currently on room air with oxygen saturation 96%. Able to achieve 2500 mL on incentive spirometry. Strong cough. CARDIOVASCULAR: S1, S2 present. Slow but regular rate and rhythm, sinus bradycardia on telemetry. Palpable peripheral pulses bilaterally. No edema present. No calf pain or tenderness noted. GASTROINTESTINAL: Abdomen soft, nontender, nondistended. Active bowel sounds present 4 quadrants. Tolerating diet. GENITOURINARY: Continues to void INTEGUMENTARY: Skin is warm and dry with evidence of good perfusion. NEUROLOGIC: Cranial nerves II through XII intact MUSKULOSKELETAL: Able to move all extremities, strength equal bilaterally, gait normal PSYCHIATRIC: Alert and oriented to person place and time, appropriate affect, intact judgment and insight - Labs CBC & Chem 7: 02/11/22 10:12 02/12/22 07:30 Labs: Abnormal Lab Results - Last 24 Hours (Table) 02/12/22 02/12/22 Range/Units 07:30 07:30 APTT 45.1 H (22.0-30.0) sec Glucose 136 H (74-99) mg/dL Microbiology - Last 24 Hours (Table) 02/11/22 11:00 Nasal Screen MRSA/MSSA - Final Nasal Swab Assessment and Plan Assessment: 1. Coronary artery disease with left main disease, non-STEMI this admission 2. Undiagnosed hyperlipidemia, cholesterol 230, LDL 146, triglycerides 204 3. Hypertension 4. History of BPH 5. History of vertigo 6. Family history of coronary artery disease 7. Never smoker, preoperative FEV1 72% of predicted Plan: 1. Continue aspirin, statin, beta marcin, IV heparin. 2. Hold ARB to prevent vaso-plegia postoperatively, switched to hydralazine for blood pressure control, increased dose today 3. Encourage incentive spirometry 4. Increase activity, continue to ambulate as tolerated 5. Our plan is for coronary artery bypass graft surgery with left internal mammary artery and endoscopic vein harvesting, ligation of the left atrial appendage tomorrow with Dr. Barry 6. Medical management of other comorbidities per primary care service
[2022-02-13 08:18] LABS: HCT 43.4 % (39.0-53.0); HGB 14.7 gm/dL (13.0-17.5); MCH 30.5 pg (25.0-35.0); MCHC 33.9 g/dL (31.0-37.0); MCV 89.9 fL (80.0-100.0); Mean Platelet Volume 9.3; Platelet Count 170 k/uL (150-450); RBC 4.83 m/uL (4.30-5.90); RDW 13.6 % (11.5-15.5); WBC 5.5 k/uL (3.8-10.6)
[2022-02-13 08:33] LABS: Calcium 9.1 mg/dL (8.4-10.2); Magnesium 1.9 mg/dL (1.6-2.3); Potassium 4.1 mmol/L (3.5-5.1); Total Protein 6.4 g/dL (6.3-8.2)
[2022-02-13 08:56] LABS: Prothrombin Time 10.6 sec (9.0-12.0)
[2022-02-13] MEDS ORDERED: MD COMMUNICATION TO PHARMACY 1 EACH MISC PO ONE ×2 (09:53)
--- NOTE | 2022-02-13 11:25 | P.PN ---
Subjective Progress Note Date: 02/13/22 This is Basil Gauthier NP, I'm dictating on behalf of Dr. Alejo's H&P and A&P. Patient was interviewed and examined. Patient is a pleasant 71-year-old male who initially presented to hospital with congestive heart failure, and underwent cardiac catheterization due to concerns for possible and STEMI, which did show need for CABG. Patient does have a CABG scheduled tomorrow morning. Patient today reports that he feels good, is breathing good, and had no chest pain or shortness of breath overnight. Patient was found up sitting in a chair, which was a recommendations from yesterday. Patient should continue to practice using incentive spirometry. GENERAL: Well-appearing, well-nourished and in no acute distress. NECK: Supple without JVD or thyromegaly. LUNGS: Breath sounds clear to auscultation bilaterally. Respiration equal and unlabored. No wheezes, rales or rhonchi. HEART: Regular rate and rhythm without murmurs, rubs or gallops. S1 and S2 heard. EXTREMITIES: Normal range of motion, no edema. No clubbing or cyanosis. Peripheral pulses intact and strong. VITALS: Temp 98.0, pulse 51, respirations 18, blood pressure 124/66, O2 saturation 97% on room air TELEMETRY: Normal sinus rhythm LABS: White count 5.5, hemoglobin 14.7, sodium 139, potassium 4.1, B1 15, creatinine 1.03, APTT 41.8, magnesium 1.9 IMPRESSION/PLAN: 1. CAD-CABG scheduled for tomorrow. Hold any ARB medication tomorrow. Continue heparin. 2. Hypertension-continue to check manual blood pressures. Continue medications as prescribed at this time. Blood pressures appear within normal limits today. Further recommendations will be made based on the patient's clinical course. Objective - Vital Signs Vital signs: Vital Signs Temp 98.0 F 02/13/22 04:00 Pulse 52 L 02/13/22 08:00 Resp 16 02/13/22 08:00 BP 124/66 02/13/22 08:00 Pulse Ox 97 02/13/22 08:00 FiO2 Intake & Output 02/12/22 02/13/22 02/13/22 18:59 06:59 18:59 Intake Total 1200 250 Output Total 1400 Balance -200 250 Intake: Intake, IV Titration 250 Amount Heparin Sod,Pork in 0.45% 250 NaCl 25,000 unit In 0.45 % NaCl 1 250ml.bag @ 12 UNITS/KG/HR 10.92 mls/hr IV .[id number] [facility] Rx#: [id number] Oral 1200 Output: Urine 1400 Other: Voiding Method Toilet Toilet # Voids 3 - Labs CBC & Chem 7: 02/13/22 07:46 02/13/22 07:46 Labs: Microbiology - Last 24 Hours (Table) 02/11/22 11:00 Nasal Screen MRSA/MSSA - Final Nasal Swab
--- NOTE | 2022-02-13 13:00 | P.PN ---
Subjective Progress Note Date: 02/13/22 71-year-old male patient, presented to [facility] today's ago with dizziness and some shortness of breath and headache. Denied having any chest pain. EKG showed some nonspecific ST segment changes and troponins were elevated and the patient was diagnosed having an acute non-ST segment elevation myocardial infarction. Cardiac catheterization was done and the patient was found to have left main and also 70-80%, proximal LAD 99%, distal LAD 90%, second diagonal branch of 80%, circumflex of 40-50%, RCA of 30-40%, distal RCA of 99%. Transthoracic echocardiogram showed a preserved LV function with an ejection fraction of 55-60%. The patient was transferred to our hospital for coronary artery bypass surgery. Comorbid conditions include BPH. The chest x- ray is suggestive of a small pleural effusion.. The patient has no history of asthma. No history of emphysema.Does not see a physician on a regular basis. The patient denies having any shortness of breath at this point in time. LDL cholesterol was 46. 02/12/2022, the patient is being seen for a follow-up. Clinically stable. 3 of any chest pain. Hemodynamically stable. Awaiting cardiac bypass surgery. The patient is also oozing incentive spirometer. He remains on IV heparin. Labs from today shows normal electrolytes, creatinine is at 1.01 with a BUN of 14 and the PTT is therapeutic at 45. 02/13/2022, the patient remains fairly of any chest pain awaiting his coronary artery bypass surgery for tomorrow. No new complaints otherwise for now. Remains on IV heparin. Blood work from today shows a hemoglobin of 14.7. Reticulocyte count of 170. PTT is therapeutic. BMs at 50 with a creatinine of 1. Electrolytes all within normal limits. Objective - Vital Signs Vital signs: Vital Signs Temp 98.0 F 02/13/22 04:00 Pulse 52 L 02/13/22 08:00 Resp 16 02/13/22 08:00 BP 124/66 02/13/22 08:00 Pulse Ox 97 02/13/22 08:00 FiO2 Intake & Output 02/12/22 02/13/22 02/13/22 18:59 06:59 18:59 Intake Total 1200 250 Output Total 1400 Balance -200 250 Intake: Intake, IV Titration 250 Amount Heparin Sod,Pork in 0.45% 250 NaCl 25,000 unit In 0.45 % NaCl 1 250ml.bag @ 12 UNITS/KG/HR 10.92 mls/hr IV .[id number] [facility] Rx#: [id number] Oral 1200 Output: Urine 1400 Other: Voiding Method Toilet Toilet Toilet # Voids 3 - Exam CONSTITUTIONAL: Awake and alert, appears comfortable, cooperative, well- developed, well-nourished, no pain, no acute distress EYES: Pupils equal, round, reactive to light, normal ocular movement ENT: Moist mucous membranes without oral lesions present NECK: No masses, no bruits, trachea midline RESPIRATORY: Lungs sounds clear to auscultation bilaterally. Respirations even, nonlabored. Currently on 2 L nasal cannula with oxygen saturation 98%. Strong cough. No chest wall deformities. No clubbing or cyanosis present CARDIOVASCULAR: S1, S2 present. Slow but regular rate and rhythm, sinus bradycardia on telemetry with heart rate in the high 50s. Palpable peripheral pulses bilaterally. No edema present. No calf pain or tenderness noted. No significant lower extremity varicosities noted. GASTROINTESTINAL: Abdomen soft, nontender, nondistended without masses or organomegaly noted. There is no rebound or guarding present. Active bowel sounds present 4 quadrants. GENITOURINARY: Deferred INTEGUMENTARY: Skin is warm and dry with evidence of good perfusion. NEUROLOGIC: Cranial nerves II through XII intact, normal coordination, no obvious motor or sensory deficits, speech is normal MUSKULOSKELETAL: Able to move all extremities, strength equal bilaterally, normal posture PSYCHIATRIC: Alert and oriented to person place and time, appropriate affect, intact judgment and insight - Labs CBC & Chem 7: 02/13/22 07:46 02/13/22 07:46 Labs: Abnormal Lab Results - Last 24 Hours (Table) 02/13/22 02/13/22 02/13/22 Range/Units 07:46 07:46 07:46 APTT 41.8 H (22.0-30.0) sec Glucose 134 H (74-99) mg/dL ALT 55 H (4-49) U/L Crossmatch See Detail Microbiology - Last 24 Hours (Table) 02/11/22 11:00 Nasal Screen MRSA/MSSA - Final Nasal Swab Assessment and Plan Plan: Coronary artery disease with left main disease, non-STEMI this admission please refer to the results of the cardiac catheterization. The patient has multivessel coronary artery disease and the patient will need bypass surgery. The patient ruled in for an acute non-STEMI. The patient got transferred to [facility] for coronary artery bypass BPH Hyperlipidemia with an LDL level of 146 Vertigo Plan Clinically stable over the past 48 hours. Any chest pain Do not anticipate any pulmonary complications. When the patient is a lifetime nonsmoker Continue IV heparin Continue The patient beta marcin with metoprolol bedside spirometry measured the patient's FEV1 was noted Echocardiogram showed a preserved LV function Chest x-ray shows small pleural effusions Hemodynamically stable We'll continue to follow. We'll take care of the postoperative pulmonary needs and whether be involved in the critically care management and ventilator support
--- NOTE | 2022-02-13 15:03 | PN ---
PROGRESS NOTE CHIEF COMPLAINT: Coronary artery disease. HISTORY OF PRESENT ILLNESS: This gentleman is stable and awaits surgery tomorrow. He has had no chest pain, shortness of breath, dizziness, lightheadedness, etc. PHYSICAL EXAMINATION: Chest is clear. Cardiac exam is normal. Abdomen is soft, nontender. IMPRESSION: Coronary artery disease. PLAN: CABG tomorrow. MMODL / IJN: [id number] /
[2022-02-13] MEDS: HEPARIN SOD,PORK IN 0.45% NACL 25,000 UNIT in 0.45% NACL 1 250ML.BAG IV SCH ×2 (19:59→22:59)
[2022-02-13] MEDS: HEPARIN SODIUM 1,000 UN/ML (10ML VL) IV PRN (21:07)
[2022-02-13] MEDS: SODIUM CHLORIDE 0.9% 1,000 ML IV SCH (22:59)
[2022-02-14] MEDS ORDERED: LACTATED RINGERS 1,000 ML IV SCH (05:00)
[2022-02-14] MEDS ORDERED: CLEVIDIPINE BUTYRATE 25 MG in EMPTY BAG 1 BAG IV SCH (05:00)
[2022-02-14] MEDS ORDERED: CALCIUM CHLORIDE 100 MG/ML 10 ML SYRINGE IVP ONE (05:00)
[2022-02-14] MEDS ORDERED: MANNITOL 25% 12.5 GM/50 ML VIAL IV ONE ×2 (05:00)
[2022-02-14] MEDS ORDERED: METOPROLOL TARTRATE 12.5 MG TAB PO ONE (05:00)
[2022-02-14] MEDS ORDERED: ALBUMIN HUMAN 5% 500 ML in EMPTY BAG 1 BAG IVPB ONE ×6 (05:00)
[2022-02-14] MEDS ORDERED: INSULIN REGULAR 100 UNIT in SODIUM CHLORIDE 0.9% 100 ML IV SCH ×2 (05:00→15:00)
[2022-02-14] MEDS ORDERED: PAPAVERINE 360 MG in SODIUM CHLORIDE 0.9% 90 ML IV ONE ×2 (05:00→09:11)
[2022-02-14] MEDS ORDERED: SODIUM BICARB 8.4% 50 ML SYR (1 MEQ/ML) IV ONE (05:00)
[2022-02-14] MEDS ORDERED: NITROGLYCERIN-D5W PMX 25 MG/250 ML BTL IV ONE (05:00)
[2022-02-14] MEDS ORDERED: TRANEXAMIC ACID 2,000 MG in SODIUM CHLORIDE 0.9% 80 ML IV ONE ×4 (05:00)
[2022-02-14] MEDS ORDERED: MAGNESIUM SULFATE 16.24 MEQ in EMPTY SYRINGE 1 SYR IV ONE (05:00)
[2022-02-14] MEDS ORDERED: ELECTROLYTE-A SOLUTION 1,000 ML with POTASSIUM CHLORIDE 100 MEQ, MAGNESIUM SULFATE 16 M... IV SCH ×5 (05:00)
[2022-02-14] MEDS ORDERED: HEPARIN SODIUM 1,000 UN/ML (10ML VL) IV ONE (05:00)
[2022-02-14] MEDS ORDERED: ELECTROLYTE-A SOLUTION 1,000 ML with POTASSIUM CHLORIDE 40 MEQ, MAGNESIUM SULFATE 16 ME... IV SCH ×5 (05:00)
[2022-02-14] MEDS ORDERED: HEPARIN SODIUM,PORCINE 5,000 UNIT in SODIUM CHLORIDE 0.9% 500 ML 500 ML IV ONE (05:00)
[2022-02-14] MEDS ORDERED: NOREPINEPHRINE 4 MG in SODIUM CHLORIDE 0.9% 250 ML IV SCH (05:00)
[2022-02-14] MEDS ORDERED: ASPIRIN 325 MG TAB PO ONE (05:00)
[2022-02-14] MEDS ORDERED: CHLORHEXIDINE GLUCONATE 15 ML CUP MUCOUS MEM ONE (05:00)
[2022-02-14] MEDS ORDERED: PHENYLEPHRINE 40 MG in SODIUM CHLORIDE 0.9% 250 ML IV ONE (05:00)
[2022-02-14] MEDS ORDERED: ATORVASTATIN 10 MG TAB PO ONE (05:00)
[2022-02-14] MEDS ORDERED: PHENYLEPHRINE 10 MG/ML VIAL IV ONE (05:00)
[2022-02-14] MEDS ORDERED: ceFAZolin 1,000 MG in SODIUM CHLORIDE 0.9% IRRIGATIO 1,000 ML IRRIGATION ONE (05:00)
[2022-02-14] MEDS ORDERED: PROTAMINE SULFATE 10 MG/ML 25 ML VIAL IV ONE ×2 (05:00→07:47)
[2022-02-14] MEDS ORDERED: ALBUMIN HUMAN 25% 50 ML in EMPTY BAG 1 BAG IVPB ONE (05:00)
[2022-02-14] MEDS ORDERED: PROTAMINE SULFATE 250 MG in EMPTY BAG 1 BAG IV ONE (05:00)
[2022-02-14] MEDS: ATORVASTATIN 80 MG TAB PO SCH (05:38)
[2022-02-14] MEDS: ASPIRIN 81 MG PO SCH (05:38)
[2022-02-14] MEDS: METOPROLOL TARTRATE 12.5 MG TAB PO SCH (05:38)
[2022-02-14 05:58] LABS: Glucose,Whole Blood 91 mg/dL (75-99)
[2022-02-14] MEDS ORDERED: IV FLUID CONTINUATION 450 ML IV ONE (06:14)
[2022-02-14] MEDS ORDERED: VECURONIUM 10 MG VIAL IV ONE (07:47)
[2022-02-14] MEDS ORDERED: ELECTROLYTE-R (PH 7.4) 1,000 ML IV.SOLN IV ONE (07:47)
[2022-02-14] MEDS ORDERED: MIDAZOLAM HCL 10 MG/10 ML VIAL ONE (07:47)
[2022-02-14] MEDS ORDERED: HEPARIN SODIUM,PORCINE 10,000 UNIT/ML 1 ML VIAL ONE (07:47)
[2022-02-14] MEDS ORDERED: NITROGLYCERIN-D5W PMX 50 MG/250 ML BOTTLE IV ONE (07:47)
[2022-02-14] MEDS ORDERED: fentaNYL (PF) 50 MCG/ML 50 ML VIAL ONE (07:47)
[2022-02-14] MEDS ORDERED: SUCCINYLCHOLINE CHLORIDE 100 MG/5 ML SYR IV ONE (07:47)
[2022-02-14] MEDS ORDERED: LIDOCAINE 2% SYG (PF) 100 MG/5 ML ONE (07:47)
[2022-02-14] MEDS ORDERED: PROPOFOL 10 MG/ML 20 ML VIAL IV ONE (07:47)
[2022-02-14] MEDS ORDERED: TRANEXAMIC ACID IN NACL,ISO-OS 1,000 MG/100 ML BAG ONE (07:47)
[2022-02-14] MEDS ORDERED: ePHEDrine 50 MG/ML 1 ML VIAL ONE (07:47)
[2022-02-14] MEDS ORDERED: MAGNESIUM SULFATE 4 MEQ/ML 10ML VIAL ONE (07:47)
[2022-02-14] MEDS ORDERED: SODIUM CHLORIDE 0.9% IRRIG 1,000 ML BTL IRRIGATION ONE (07:47)
[2022-02-14 08:34] LABS: ABG Base Excess 1.9 mmol/L; ABG Glucose Whole Blood 89 mg/dL (75-99); ABG HCO3 27 mmol/L (21-25); ABG Hematocrit 41 % (34.0-46.0); ABG Ionized Calcium 4.9 mg/dL (4.5-5.3); ABG Lactic Acid Whole Blood <0.4 mmol/L (0.5-1.6); ABG Oxygen Saturation 99.9 % (94-97); ABG PCO2 41 mmHg (35-45); ABG PH 7.42 (7.35-7.45); ABG PO2 298 mmHg (83-108); ABG Potassium Whole Blood 4.4 mmol/L (3.4-4.5); ABG Sodium Whole Blood 142 mmol/L (135-146); ABG TCO2 28 mmol/L (19-24)
[2022-02-14] MEDS ORDERED: SODIUM CHLORIDE 0.9% 500 ML 500 ML with HEPARIN SODIUM,PORCINE 5,000 UNIT IV ONE ×2 (09:10)
[2022-02-14 09:46] LABS: ABG Base Excess 0.8 mmol/L; ABG Glucose Whole Blood 103 mg/dL (75-99); ABG HCO3 27 mmol/L (21-25); ABG Hematocrit 41 % (34.0-46.0); ABG Lactic Acid Whole Blood 0.5 mmol/L (0.5-1.6); ABG Oxygen Saturation 99.4 % (94-97); ABG PCO2 46 mmHg (35-45); ABG PH 7.37 (7.35-7.45); ABG PO2 216 mmHg (83-108); ABG Potassium Whole Blood 4.3 mmol/L (3.4-4.5); ABG Sodium Whole Blood 143 mmol/L (135-146); ABG TCO2 28 mmol/L (19-24)
[2022-02-14 10:44] LABS: ABG Base Excess 1.5 mmol/L; ABG Glucose Whole Blood 97 mg/dL (75-99); ABG HCO3 26 mmol/L (21-25); ABG Hematocrit 33 % (34.0-46.0); ABG Ionized Calcium 4.3 mg/dL (4.5-5.3); ABG Lactic Acid Whole Blood 0.5 mmol/L (0.5-1.6); ABG Oxygen Saturation 99.9 % (94-97); ABG PCO2 40 mmHg (35-45); ABG PH 7.43 (7.35-7.45); ABG PO2 396 mmHg (83-108); ABG Potassium Whole Blood 5.3 mmol/L (3.4-4.5); ABG Sodium Whole Blood 140 mmol/L (135-146); ABG TCO2 27 mmol/L (19-24)
--- NOTE | 2022-02-14 10:54 | CDI ---
Documentation Clarification Form Date: 02/15/2022 10:39:19 AM From: Carrol Parry CCS, CCDS Admit Date: 02/10/2022 05:57:00 PM Patient Name: Diego Miles Visit Number: [id number] Discharge Date: ATTENTION: The Clinical Documentation Specialists (CDI) and [facility] Coding Staff appreciate your assistance in clarifying documentation. Please respond to the clarification below the line at the bottom and electronically sign. The CDI & [facility] Coding staff will review the response and follow-up if needed. Please note: Queries are made part of the Legal Health Record. If you have any questions, please contact the author of this message via ITS. Dr. Tolu Alejo: CHF without further specificity is documented in the 02/12 Cardiology Progress Note: Initially presented to the hospital with exacerbation of CHF. Additional information regarding the Type & Acuity of CHF is requested. History/Risk Factors per the 02/10 H/P: Family history of CAD. Urinary Retention. Clinical Indicators per the 02/10 H/P: Patient was admitted to [facility] the previous night with orthostatic dizziness, No chest pain, palpitations, diaphoresis, nausea or vomiting or pain to the jaw, arms, etc. Admit with triple vessel CAD and consult with cardiothoracic surgery. 02/10 VS: T 98.2, P 57, R 16, BP 138/65, PO 95 RA, BMI: 29.3 02/10 LAB: APTT 33.1, Triglycerides 204.00, Cholesterol 230.00, LDL Cholesterol 146.5, VLDL Cholesterol 40.80 BNP not done. 02/11 Carotid US: No significant flow limiting stenosis. Mild atheromatous plaquing intimal thickening is present. 02/11 CXR: Suggestion of small bilateral pleural effusions. No ECHO this admission, no record of previous ECHO. Treatment 02/10: Telemetry, Heparin Drip, IV Na Chl 1,000 mls @ 20 mls/hr q24H. In your professional opinion, can you please clarify the Acuity & Type of CHF if known? [ ] Acute Systolic Heart Failure [ ] Acute Diastolic Heart Failure [ ] Acute Systolic & Diastolic Heart Failure [ ] Heart Failure is ruled out [ ] Other, please specify [ ] Unable to determine (Template Last Revised: October 2020) Hypertensive urgency precipitating acute diastolic heart failure MTDD
--- NOTE | 2022-02-14 10:55 | P.ANPRN ---
Procedure Note - Anesthesia - Invasive Line Right Central Line Time Out Performed: Yes ([id number]) Date of Procedure: 02/14/22 Time of Procedure: 07:27 Location of Patient: PreOp Preparation: Sterile Prep, Sterile Dressing Arterial Line Location: Radial Ultrasound Used: Yes Purpose - Visualization and Identification of Vasculature: Yes Needle Guage: 18g Image Stored and Saved: Yes Narrative: Central line placement per sterile protocol utilized. local angio cvp jjwire uneventful dilation and introduction right IJ Cordis. Sterile protocol. lumen bled and flushed. Secured
--- NOTE | 2022-02-14 10:56 | P.ANPRN ---
Procedure Note - Anesthesia - Invasive Line Right [place] Time Out Performed: Yes ([id number]) Date of Procedure: 02/14/22 Time of Procedure: 07:39 Location of Patient: Phase I Preparation: Sterile Prep Arterial Line Location: Radial Ultrasound Used: No Purpose - Visualization and Identification of Vasculature: No Image Stored and Saved: No Narrative: Central line placement per sterile protocol utilized. sterile protocol. Floated in sheath. one attempt. to pa 63 cm.
[2022-02-14 11:24] LABS: ABG Base Excess 2.2 mmol/L; ABG Glucose Whole Blood 101 mg/dL (75-99); ABG HCO3 27 mmol/L (21-25); ABG Hematocrit 33 % (34.0-46.0); ABG Ionized Calcium 4.5 mg/dL (4.5-5.3); ABG Lactic Acid Whole Blood 0.6 mmol/L (0.5-1.6); ABG Oxygen Saturation 99.8 % (94-97); ABG PCO2 44 mmHg (35-45); ABG PH 7.41 (7.35-7.45); ABG PO2 344 mmHg (83-108); ABG Potassium Whole Blood 5.3 mmol/L (3.4-4.5); ABG Sodium Whole Blood 141 mmol/L (135-146); ABG TCO2 29 mmol/L (19-24)
[2022-02-14 12:01] LABS: ABG Base Excess 2.1 mmol/L; ABG Glucose Whole Blood 102 mg/dL (75-99); ABG HCO3 28 mmol/L (21-25); ABG Hematocrit 32 % (34.0-46.0); ABG Ionized Calcium 4.5 mg/dL (4.5-5.3); ABG Lactic Acid Whole Blood 0.6 mmol/L (0.5-1.6); ABG Oxygen Saturation 99.5 % (94-97); ABG PCO2 46 mmHg (35-45); ABG PH 7.39 (7.35-7.45); ABG PO2 252 mmHg (83-108); ABG Potassium Whole Blood 5.3 mmol/L (3.4-4.5); ABG Sodium Whole Blood 141 mmol/L (135-146); ABG TCO2 29 mmol/L (19-24)
[2022-02-14 13:43] LABS: ABG Glucose Whole Blood 101 mg/dL (75-99); ABG HCO3 26 mmol/L (21-25); ABG Hematocrit 35 % (34.0-46.0); ABG Ionized Calcium 4.8 mg/dL (4.5-5.3); ABG Lactic Acid Whole Blood 0.8 mmol/L (0.5-1.6); ABG Oxygen Saturation 99.2 % (94-97); ABG PCO2 38 mmHg (35-45); ABG PH 7.45 (7.35-7.45); ABG PO2 149 mmHg (83-108); ABG Sodium Whole Blood 143 mmol/L (135-146); ABG TCO2 27 mmol/L (19-24)
[2022-02-14] MEDS ORDERED: METOCLOPRAMIDE 5 MG/ML 2 ML VIAL IVP PRN (14:10)
[2022-02-14] MEDS ORDERED: CALCIUM GLUCONATE IN NACL 2 GM in SALINE 1 100ML.BAG IVPB PRN (14:10)
[2022-02-14] MEDS ORDERED: BENZOCAINE/MENTHOL LOZENG 1 EACH LOZENGE MUCOUS MEM PRN (14:10)
[2022-02-14] MEDS ORDERED: ONDANSETRON 4 MG/2 ML VIAL IVP PRN (14:10)
[2022-02-14] MEDS ORDERED: Magnesium Replacement Protocol 1 EACH MISC MISCELLANE PRN (14:10)
[2022-02-14] MEDS ORDERED: IPRATROPIUM-ALBUTEROL 3 ML NEB INHALATION PRN (14:10)
[2022-02-14] MEDS ORDERED: Potassium Replacement Protocol 1 EACH MISC MISCELLANE PRN (14:10)
[2022-02-14] MEDS ORDERED: Phosphorus Replacement Protoco 1 EACH MISC MISCELLANE PRN (14:10)
[2022-02-14] MEDS ORDERED: MORPHINE SULFATE 2 MG/ML SYRINGE IVP PRN (14:10)
[2022-02-14 14:29] LABS: Glucose,Whole Blood 93 mg/dL (75-99)
[2022-02-14] MEDS: TAMSULOSIN 0.4 MG CAP.ER.24H PO SCH (14:45)
[2022-02-14] MEDS: NITROGLYCERIN-D5W PMX 50 MG in DEXTROSE/WATER 1 250ML.BAG IV SCH (14:45)
[2022-02-14] MEDS: LACTATED RINGERS 1,000 ML IV SCH (14:52)
[2022-02-14 14:55] LABS: Basophils % (A) 0 %; Eosinophils # (A) 0.1 k/uL (0-0.7); Eosinophils % (A) 1 %; HCT 32.4 % (39.0-53.0); Lymphocytes # (A) 0.8 k/uL (1.0-4.8); Lymphocytes % (A) 13 %; MCH 31.6 pg (25.0-35.0); MCHC 34.3 g/dL (31.0-37.0); MCV 92.2 fL (80.0-100.0); Mean Platelet Volume 9.9; Monocytes # (A) 0.4 k/uL (0-1.0); Monocytes % (A) 6 %; Neutrophils # (A) 5.3 k/uL (1.3-7.7); Neutrophils % (A) 80 %; RBC 3.52 m/uL (4.30-5.90); RDW 14.1 % (11.5-15.5); WBC 6.6 k/uL (3.8-10.6)
[2022-02-14 14:57] LABS: HGB 11.1 gm/dL (13.0-17.5)
--- NOTE | 2022-02-14 15:04 | XR ---
EXAMINATION TYPE: XR chest 1V portable DATE OF EXAM: 02/14/2022 HISTORY: Post Op CABG COMPARISON: NONE TECHNIQUE: Single view of the chest is submitted. FINDINGS: Endotracheal tube, NG tube, SG catheter, mediastinal drains, left atrial clip and chest tubes are jovanni ropriately placed. Post operative changes of CABG. No sizeable pneumothorax. Scattered Pleural-parenchymal opacities may reflect atelectasis. The heart is not enlarged. IMPRESSION: 1. Post operative changes of CABG.
[2022-02-14 15:12] LABS: INR 1.2 (<1.2); Partial Thromboplastin Time 27.7 sec (22.0-30.0); Prothrombin Time 12.5 sec (9.0-12.0)
[2022-02-14 15:14] LABS: ALT 61 U/L (4-49); AST 78 U/L (17-59); African American GFR (CKD) >90 (>60 ml/min/1.73 sqM); Albumin 2.7 g/dL (3.5-5.0); Alkaline Phosphatase 42 U/L (38-126); Anion Gap 3 mmol/L; Blood Urea Nitrogen 13 mg/dL (9-20); Carbon Dioxide 27 mmol/L (22-30); Chloride 110 mmol/L (98-107); Glucose 89 mg/dL (74-99); Magnesium 2.7 mg/dL (1.6-2.3); Non-African American GFR(CKD) >90 (>60 ml/min/1.73 sqM); Sodium 140 mmol/L (137-145); Total Bilirubin 0.7 mg/dL (0.2-1.3); Total Protein 4.3 g/dL (6.3-8.2)
[2022-02-14 15:21] LABS: ABG HCO3 26 mmol/L (21-25); ABG PCO2 40 mmHg (35-45); ABG PH 7.43 (7.35-7.45); ABG PO2 368 mmHg (83-108); ABG TCO2 28 mmol/L (19-24); Allen Test Performed? Yes
[2022-02-14 15:26] LABS: Platelet Count 90 k/uL (150-450)
[2022-02-14 15:28] LABS: RBC Morphology Normal
[2022-02-14 15:36] LABS: Glucose,Whole Blood 89 mg/dL (75-99)
[2022-02-14] MEDS: CLEVIDIPINE BUTYRATE 25 MG in EMPTY BAG 1 BAG IV SCH ×2 (15:47→18:59)
[2022-02-14] MEDS: HEPARIN SODIUM,PORCINE/PF 5,000 UNIT/0.5 ML SYRINGE SQ SCH ×2 (15:48→23:45)
--- NOTE | 2022-02-14 15:56 | OP ---
OPERATIVE REPORT DATE OF SURGERY: 02/14/2022 PREOPERATIVE DIAGNOSIS: Coronary artery disease. POSTOPERATIVE DIAGNOSIS: Coronary artery disease. PROCEDURE: 1. Coronary artery bypass grafting x4 vessels (left internal mammary artery to left anterior descending artery, saphenous vein graft to ramus artery, saphenous vein graft to diagonal artery, saphenous vein graft to posterior descending artery). 2. Endoscopic harvest of right greater saphenous vein. 3. Ligation of left atrial appendage using 35 mm AtriClip. 4. Epiaortic ultrasound. 5. Transesophageal echocardiogram. SURGEON: Kalin Barry M.D. ASSISTANTS: 1. ISMA Gilmore. 2. Gama García NP. ANESTHESIA: General. SPECIMEN: None. COMPLICATIONS: None. INDICATION: The patient is a 71-year-old male with a past medical history significant for vertigo and BPH who presented to the hospital with an episode of dizziness accompanied by shortness of breath. Workup revealed a [id number] myocardial infarction. Cardiac catheterization revealed multivessel coronary artery disease, including a tight left main coronary artery lesion. His vessels were small, diffusely calcified, and diffusely diseased on his imaging study. We felt that a coronary artery bypass was his best option. The risks, benefits and alternatives to this procedure were discussed with the patient and his . All of their questions were answered. Consent was obtained. FINDINGS: The left internal mammary artery was a good conduit with brisk flow. The saphenous vein was a good conduit. The LAD was diffusely diseased and diffusely calcified. It was small in diameter. It measured 1.0 mm in diameter. The ramus artery measured 1.3 mm. The diagonal artery measured 1.3 mm. The PDA measured 1.3 mm. PROCEDURE IN DETAIL: The patient was taken to the operating room and placed supine on the operating table. After the induction of general anesthesia, he was prepped and draped in the usual sterile fashion. Preoperative transesophageal echocardiogram confirmed a preserved ejection fraction with trace mitral regurgitation and trace aortic insufficiency. A median sternotomy was performed. The left internal mammary artery was harvested in the standard fashion, taking care to clip all branches. Intravenous heparin was administered and the vessel was transected distally, revealing brisk flow. Simultaneously, greater saphenous vein was harvested from the right lower extremity using endoscopic technique. All branches were tied. Both the mammary artery and saphenous vein were good conduits. A pericardial cradle was created. The ascending aorta was palpated. There was no significant calcific plaque noted. Epiaortic ultrasound was then performed on the ascending aorta. Again no calcific plaque or atheromatous disease was identified. An arterial cannula was placed in the distal ascending aorta. Avenous cannula was placed through the right atrial appendage and directed into the IVC. Both antegrade and retrograde catheters were placed as well. The patient was then placed on cardiopulmonary bypass with good decompression of the heart. The aortic crossclamp was applied. Cold blood potassium cardioplegia was delivered in both antegrade and retrograde fashion to achieve arrest of the heart. Of note, cardioplegia was delivered every 15 to 20 minutes while the patient was under crossclamp. I began by identifying the left atrial appendage. A 35 mm AtriClip was placed across its base to ensure ligation. Next, attention was turned to the inferior wall. The posterior descending artery was identified. It was dissected free. A small arteriotomy was created. This vessel accepted a 1.0 mm probe. Using saphenous vein in a reverse fashion, an end-to-side anastomosis was created. This was performed using a running 7-0 prolene suture. The graft was hemostatic and had great flow. Next, attention was turn to the lateral wall. Both OM branches were identified and appeared to be extremely small in diameter and not amenable for bypass. Another branch with a high takeoff, which was consistent with either a high OM or ramus artery, was dissected free. I felt this vessel was amenable for bypass. A small arteriotomy was created just proximal to its distal bifurcation. This vessel accepted a 1.0 mm probe. Using saphenous vein in a reverse fashion, an end-to-side anastomosis was created. This was performed using a running 7-0 Prolene suture. The graft was hemostatic and had good flow. Next, attention was turned to the anterior wall. The diagonal artery was identified. It was dissected free. A small arteriotomy was created. This vessel accepted a 1.0 mm probe. Using saphenous vein in a reverse fashion, an end-to-side anastomosis was created. This was performed using a running 7-0 Prolene suture. The graft was hemostatic and had great flow. Finally, attention was turned to the left anterior descending artery. Diffuse calcium was palpated throughout its entire course. The vessel was also small in diameter in its distal portion. I dissected it free in its mid portion. I felt it was amenable for bypass. A small arteriotomy was created. This vessel accepted a 1.0 mm probe. Using the left internal mammary artery, an end-to-side anastomosis was created. This was performed using a running 8-0 Prolene suture. The graft was hemostatic. The mammary pedicle was then tacked down to the anterior surface of the heart. Attention was then turned to the proximal anastomoses. These were all performed in an end- to-side fashion using running 6-0 Prolene suture. One liter of warm blood was delivered in retrograde fashion. Both lidocaine and magnesium were administered as well. The aortic crossclamp was removed. The vein grafts were de-aired in the standard fashion. Distal anastomoses were inspected and appeared to be hemostatic. Temporary atrial and ventricular pacing wires were placed and brought through the skin. The patient was then weaned off cardiopulmonary bypass. He without difficulty. Follow-up transesophageal echocardiogram confirmed good left ventricular ejection fraction and no change in valvular pathology. Protamine was administered. There were no adverse reactions. The remaining cannulas were then removed. The mediastinum was copiously irrigated with warm saline solution. All surgical sites were inspected and appeared to be hemostatic. Soft tissue was reapproximated over the ascending aorta as well as over the apex of the heart. Chest tubes were placed in both the left pleural space and the mediastinum. These were both secured to the skin using sutures. The sternum was then reapproximated using the [place] [employer] System. The cables were placed in a [id number] fashion. At the completion of the closure, the sternum was well aligned. The remainder of the wound was closed in layers. Sterile dressing was applied. The patient appeared to tolerate the procedure well. There were no immediate complications. He returned to the ICU in critical but stable condition. He did not receive any intraoperative blood products. MMODL / IJN: [id number] / MTDD
[2022-02-14 16:02] LABS: Glucose,Whole Blood 98 mg/dL (75-99)
[2022-02-14] MEDS: IPRATROPIUM-ALBUTEROL 3 ML NEB INHALATION SCH ×2 (16:06→19:19)
--- NOTE | 2022-02-14 16:29 | P.PN ---
Subjective Progress Note Date: 02/14/22 Principal diagnosis: Multivessel coronary artery disease On 02/14/2022 patient is seen in the intensive care unit, following his four- vessel coronary artery bypass grafting surgery. Patient had DILLARD to the LAD, SVG to the ramus, SVG to the diet, and SVG to the PDA) Patient remains intubated and sedated, on assist-control mode of ventilation with a rate of 12, tidal volume is 450, FiO2 is currently at 50% and PEEP of 5, postoperative blood gas showed pO2 of 368, pCO2 40 and pH of 7.43 and this was done on FiO2 of 100% which had since been dropped down to 50%. Postop chest x-ray shows endotracheal tube, NG tube, chest tubes, left atrial "in appropriate positions, no evidence of pneumothorax, and scattered pleural parenchymal opacities possibly reflecting atelectasis. Postoperative labs were reviewed showing white blood cell count of 6.6, hemoglobin of 11.1, platelet count of 90, INR is 1.2, sodium is 140, potassium is 4.0, chloride is 110, CO2 is 27, BUN is 13, creatinine 0.79. Patient is currently on lactated Ringer's at a rate of 50 ML per hour, Diprivan at 40 mics per kilo per minute, and nitroglycerin at 5 mics per kilo per minute. Hemodynamically patient is stable, she is in sinus mechanism with a rate of 50 BPM. Blood pressure is 113/53, cardiac output is 6.1, cardiac index is 2.9. Morales catheter is in place, patient is producing urine in the order of 120-160 ML per hour, patient has left pleural chest tube with 65 mL of sanguinous output in the Pleur-evac, and mediastinal chest tube with 100 mL of sanguinous output, no evidence of air leak. Midsternal chest tube incision, and chest tube insertion sites are clean dry and intact, left leg is [place] wrapped. Objective - Vital Signs Vital signs: Vital Signs Temp 97.5 F L 02/14/22 06:15 Pulse 62 02/14/22 16:07 Resp 14 02/14/22 16:07 BP 164/82 02/14/22 06:28 Pulse Ox 99 02/14/22 16:00 FiO2 45 02/14/22 16:07 Intake & Output 02/13/22 02/14/22 02/14/22 18:59 06:59 18:59 Intake Total 1649.635 436.274 203.911 Output Total 3242 Balance 1649.635 436.274 -3038.089 Intake: IV 260 164.0 0.9 160 CO/CI 40 Lactated Ringers 1,000 ml 100 @ 50 mls/hr IV .Q20H [facility] Rx#:[id number] Nitroglycerin-D5w Pmx 50 3.0 mg In Dextrose/Water 1 250ml.bag @ 5 MCG/MIN 1.5 mls/hr IV .Q24H [facility] Rx#: [id number] PRESSURE BAGS 18 Intake, IV Titration 134.635 176.274 39.911 Amount Heparin Sod,Pork in 0.45% 134.635 176.274 NaCl 25,000 unit In 0.45 % NaCl 1 250ml.bag @ 12 UNITS/KG/HR 10.92 mls/hr IV .[id number] [facility] Rx#: [id number] propofoL 1,000 mg In 39.911 Empty Bag 1 bag @ Titrate IV .Q0M PRN Rx#: [id number] Oral 1515 Output: Chest Tube Drainage 212 Chest Tube Left 68 Chest Tube Mediastinal 144 Urine 1830 Estimated Blood Loss 1200 Other: Voiding Method Toilet Toilet Indwelling Catheter # Voids 3 2 # Bowel Movements 1 ABP, PAP, CO, CI - Last Documented Arterial Blood Pressure 111/52 Pulmonary Artery Pressure 43/22 Cardiac Output 6.1 Cardiac Index 2.9 - Exam GENERAL EXAM: 71-year-old white male, intubated and sedated, on assist-control mode of ventilation FiO2 currently at 50% and PEEP of 5, comfortable in no apparent distress. HEAD: Normocephalic/atraumatic. EYES: Normal reaction of pupils, equal size. Conjunctiva pink, sclera white. NOSE: Clear with pink turbinates. THROAT: No erythema or exudates. NECK: No masses, no JVD, no thyroid enlargement, no adenopathy. CHEST: No chest wall deformity. Symmetrical expansion. Midsternal incision is clean dry and intact, one left pleural and one mediastinal chest tube in place with small amount of sanguinous output in the Pleur-evac, no evidence of air leak, and he wears 2 temporary external pacemaker with backup rate LUNGS: Equal air entry with no crackles, wheeze, rhonchi or dullness. CVS: Regular rate and rhythm, normal S1 and S2, no gallops, no murmurs, no rubs ABDOMEN: Soft, nontender. No hepatosplenomegaly, normal bowel sounds, no guarding or rigidity. EXTREMITIES: No clubbing, no edema, no cyanosis, 2+ pulses and upper and lower extremities. MUSCULOSKELETAL: Muscle strength and tone normal. SPINE: No scoliosis or deformity SKIN: No rashes CENTRAL NERVOUS SYSTEM: Intubated and sedated. No focal deficits, tone is normal in all 4 extremities. - Labs CBC & Chem 7: 02/14/22 14:28 02/14/22 14:28 Labs: Abnormal Lab Results - Last 24 Hours (Table) 02/13/22 02/13/22 02/14/22 Range/Units 07:46 20:17 02:32 RBC (4.30-5.90) m/uL Hgb (13.0-17.5) gm/dL Hct (39.0-53.0) % Plt Count (150-450) k/uL Lymphocytes # (1.0-4.8) k/uL PT (9.0-12.0) sec INR (<1.2) APTT 30.5 H 72.4 H (22.0-30.0) sec ABG pCO2 (35-45) mmHg ABG pO2 (83-108) mmHg ABG HCO3 (21-25) mmol/L ABG Total CO2 (19-24) mmol/L ABG O2 Saturation (94-97) % ABG Hematocrit (34.0-46.0) % ABG Potassium (3.4-4.5) mmol/L ABG Ionized Calcium (4.5-5.3) mg/dL ABG Glucose (75-99) mg/dL ABG Lactic Acid (0.5-1.6) mmol/L Hemoglobin (13.0-17.5) gm/dL Chloride (98-107) mmol/L Calcium (8.4-10.2) mg/dL Magnesium (1.6-2.3) mg/dL AST (17-59) U/L ALT (4-49) U/L Total Protein (6.3-8.2) g/dL Albumin (3.5-5.0) g/dL Arterial Blood Potassium (3.4-4.5) mmol/L Arterial Blood Glucose (75-99) mg/dL Crossmatch See Detail 02/14/22 02/14/22 02/14/22 Range/Units 08:35 09:48 10:45 RBC (4.30-5.90) m/uL Hgb (13.0-17.5) gm/dL Hct (39.0-53.0) % Plt Count (150-450) k/uL Lymphocytes # (1.0-4.8) k/uL PT (9.0-12.0) sec INR (<1.2) APTT (22.0-30.0) sec ABG pCO2 46 H (35-45) mmHg ABG pO2 298 H 216 H 396 H (83-108) mmHg ABG HCO3 27 H 27 H 26 H (21-25) mmol/L ABG Total CO2 28 H 28 H 27 H (19-24) mmol/L ABG O2 Saturation 99.9 H 99.4 H 99.9 H (94-97) % ABG Hematocrit 33 L (34.0-46.0) % ABG Potassium 5.3 H (3.4-4.5) mmol/L ABG Ionized Calcium 4.3 L (4.5-5.3) mg/dL ABG Glucose 103 H (75-99) mg/dL ABG Lactic Acid <0.4 L (0.5-1.6) mmol/L Hemoglobin 10.7 L (13.0-17.5) gm/dL Chloride (98-107) mmol/L Calcium (8.4-10.2) mg/dL Magnesium (1.6-2.3) mg/dL AST (17-59) U/L ALT (4-49) U/L Total Protein (6.3-8.2) g/dL Albumin (3.5-5.0) g/dL Arterial Blood Potassium 5.3 H (3.4-4.5) mmol/L Arterial Blood Glucose 103 H (75-99) mg/dL Crossmatch 02/14/22 02/14/22 02/14/22 Range/Units 11:25 12:03 13:45 RBC (4.30-5.90) m/uL Hgb (13.0-17.5) gm/dL Hct (39.0-53.0) % Plt Count (150-450) k/uL Lymphocytes # (1.0-4.8) k/uL PT (9.0-12.0) sec INR (<1.2) APTT (22.0-30.0) sec ABG pCO2 46 H (35-45) mmHg ABG pO2 344 H 252 H 149 H (83-108) mmHg ABG HCO3 27 H 28 H 26 H (21-25) mmol/L ABG Total CO2 29 H 29 H 27 H (19-24) mmol/L ABG O2 Saturation 99.8 H 99.5 H 99.2 H (94-97) % ABG Hematocrit 33 L 32 L (34.0-46.0) % ABG Potassium 5.3 H 5.3 H (3.4-4.5) mmol/L ABG Ionized Calcium (4.5-5.3) mg/dL ABG Glucose 101 H 102 H 101 H (75-99) mg/dL ABG Lactic Acid (0.5-1.6) mmol/L Hemoglobin 10.8 L 10.5 L 11.4 L (13.0-17.5) gm/dL Chloride (98-107) mmol/L Calcium (8.4-10.2) mg/dL Magnesium (1.6-2.3) mg/dL AST (17-59) U/L ALT (4-49) U/L Total Protein (6.3-8.2) g/dL Albumin (3.5-5.0) g/dL Arterial Blood Potassium 5.3 H 5.3 H (3.4-4.5) mmol/L Arterial Blood Glucose 101 H 102 H 101 H (75-99) mg/dL Crossmatch 02/14/22 02/14/22 02/14/22 Range/Units 14:28 14:28 14:28 RBC 3.52 L (4.30-5.90) m/uL Hgb 11.1 L D (13.0-17.5) gm/dL Hct 32.4 L (39.0-53.0) % Plt Count 90 L (150-450) k/uL Lymphocytes # 0.8 L (1.0-4.8) k/uL PT 12.5 H (9.0-12.0) sec INR 1.2 H (<1.2) APTT (22.0-30.0) sec ABG pCO2 (35-45) mmHg ABG pO2 (83-108) mmHg ABG HCO3 (21-25) mmol/L ABG Total CO2 (19-24) mmol/L ABG O2 Saturation (94-97) % ABG Hematocrit (34.0-46.0) % ABG Potassium (3.4-4.5) mmol/L ABG Ionized Calcium (4.5-5.3) mg/dL ABG Glucose (75-99) mg/dL ABG Lactic Acid (0.5-1.6) mmol/L Hemoglobin (13.0-17.5) gm/dL Chloride 110 H (98-107) mmol/L Calcium 8.0 L (8.4-10.2) mg/dL Magnesium 2.7 H (1.6-2.3) mg/dL AST 78 H (17-59) U/L ALT 61 H (4-49) U/L Total Protein 4.3 L (6.3-8.2) g/dL Albumin 2.7 L (3.5-5.0) g/dL Arterial Blood Potassium (3.4-4.5) mmol/L Arterial Blood Glucose (75-99) mg/dL Crossmatch 02/14/22 Range/Units 15:15 RBC (4.30-5.90) m/uL Hgb (13.0-17.5) gm/dL Hct (39.0-53.0) % Plt Count (150-450) k/uL Lymphocytes # (1.0-4.8) k/uL PT (9.0-12.0) sec INR (<1.2) APTT (22.0-30.0) sec ABG pCO2 (35-45) mmHg ABG pO2 368 H (83-108) mmHg ABG HCO3 26 H (21-25) mmol/L ABG Total CO2 28 H (19-24) mmol/L ABG O2 Saturation 100.0 H (94-97) % ABG Hematocrit (34.0-46.0) % ABG Potassium (3.4-4.5) mmol/L ABG Ionized Calcium (4.5-5.3) mg/dL ABG Glucose (75-99) mg/dL ABG Lactic Acid (0.5-1.6) mmol/L Hemoglobin (13.0-17.5) gm/dL Chloride (98-107) mmol/L Calcium (8.4-10.2) mg/dL Magnesium (1.6-2.3) mg/dL AST (17-59) U/L ALT (4-49) U/L Total Protein (6.3-8.2) g/dL Albumin (3.5-5.0) g/dL Arterial Blood Potassium (3.4-4.5) mmol/L Arterial Blood Glucose (75-99) mg/dL Crossmatch Assessment and Plan Plan: Assessment: #1. Symptomatic coronary artery disease with left main disease, status post coronary artery bypass grafting 4 with DILLARD to the LAD, SVG to the ramus, SVG to the diagonal, and PDA, endoscopic harvest of right greater saphenous vein, and left atrial appendage ligation on 02/14/2022 #2. Routine postoperative ventilator management #3. Acute non-ST elevated myocardial infarctions #4. Hypertension #5. Hyperlipidemia #6. BPH #7. Family history of coronary artery disease #8. Never smoker #9. Vertigo Plan: Continue weaning FiO2 Postoperative blood gas chest x-ray and labs have been reviewed All findings are satisfactory FiO2 has been dropped down to 50% Continue with nebulized bronchodilators every 4 hours around the clock while on the vent, and 4 times a day when necessary once extubated Hemodynamically patient is stable, no significant drainage out of the chest tubes We will proceed with spontaneous awakening trials of spontaneous breathing trials once awake and following commands Anticipate extubation in a few hours GI and DVT prophylaxis per CT surgery Maintain pain control Incentive spirometer to the bedside Serial CBC, and CMP, and follow-up chest x-ray in the morning We'll continue to closely follow in intensive care unit along with cardiac surgery I have personally seen and examined the patient, performed the documentation and the assessment and plan as written. Number of minutes spent on the visit: [15] Time with Patient: Greater than 30
[2022-02-14 17:03] LABS: Glucose,Whole Blood 112 mg/dL (75-99)
[2022-02-14] MEDS: ACETAMINOPHEN IV (For NPO) 1,000 MG in EMPTY BAG 1 BAG IVPB SCH ×2 (17:39→23:44)
[2022-02-14] MEDS: KETOROLAC 15 MG/ML 1 ML VIAL IVP SCH ×2 (17:41→23:45)
[2022-02-14 17:51] LABS: Basophils % (A) 1 %; Eosinophils % (A) 1 %; HCT 35.9 % (39.0-53.0); HGB 11.6 gm/dL (13.0-17.5); Lymphocytes # (A) 1.1 k/uL (1.0-4.8); Lymphocytes % (A) 14 %; MCH 29.7 pg (25.0-35.0); MCHC 32.3 g/dL (31.0-37.0); MCV 91.9 fL (80.0-100.0); Mean Platelet Volume 9.6; Monocytes # (A) 0.5 k/uL (0-1.0); Monocytes % (A) 7 %; Neutrophils # (A) 5.9 k/uL (1.3-7.7); Neutrophils % (A) 78 %; Platelet Count 111 k/uL (150-450); RDW 13.4 % (11.5-15.5); WBC 7.5 k/uL (3.8-10.6)
[2022-02-14 17:56] LABS: Glucose,Whole Blood 131 mg/dL (75-99)
[2022-02-14 18:54] LABS: Glucose,Whole Blood 130 mg/dL (75-99)
[2022-02-14 18:54] LABS: ABG HCO3 24 mmol/L (21-25); ABG Oxygen Saturation 98.7 % (94-97); ABG PCO2 32 mmHg (35-45); ABG PH 7.49 (7.35-7.45); ABG PO2 164 mmHg (83-108); ABG TCO2 25 mmol/L (19-24); Allen Test Performed? Yes
[2022-02-14 19:55] LABS: Glucose,Whole Blood 136 mg/dL (75-99)
[2022-02-14 20:53] LABS: Basophils % (A) 0 %; Eosinophils % (A) 0 %; HCT 34.1 % (39.0-53.0); HGB 11.4 gm/dL (13.0-17.5); Lymphocytes # (A) 0.6 k/uL (1.0-4.8); Lymphocytes % (A) 8 %; MCH 30.8 pg (25.0-35.0); MCHC 33.4 g/dL (31.0-37.0); Mean Platelet Volume 10.1; Monocytes # (A) 0.4 k/uL (0-1.0); Monocytes % (A) 6 %; Neutrophils # (A) 5.8 k/uL (1.3-7.7); Neutrophils % (A) 85 %; Platelet Count 110 k/uL (150-450); RBC 3.71 m/uL (4.30-5.90); RDW 14.3 % (11.5-15.5); WBC 6.9 k/uL (3.8-10.6)
[2022-02-14] MEDS ORDERED: CHLORHEXIDINE GLUCONATE 15 ML CUP MUCOUS MEM SCH (21:00)
[2022-02-14 21:03] LABS: Glucose,Whole Blood 134 mg/dL (75-99)
[2022-02-14] MEDS: MUPIROCIN 2% OINT 22 GM TUBE NASAL SCH (21:10)
[2022-02-14 21:51] LABS: Glucose,Whole Blood 129 mg/dL (75-99)
[2022-02-14 22:56] LABS: Glucose,Whole Blood 127 mg/dL (75-99)
[2022-02-14 23:51] LABS: Glucose,Whole Blood 122 mg/dL (75-99)
[2022-02-15] MEDS ORDERED: HYDROcodone/APAP 5-325MG 1 EACH TAB PO PRN (00:38)
[2022-02-15 01:03] LABS: Glucose,Whole Blood 125 mg/dL (75-99)
[2022-02-15 01:50] LABS: Glucose,Whole Blood 127 mg/dL (75-99)
[2022-02-15 03:07] LABS: Glucose,Whole Blood 124 mg/dL (75-99)
[2022-02-15 04:00] LABS: Glucose,Whole Blood 125 mg/dL (75-99)
[2022-02-15] MEDS: HYDROcodone/APAP 5-325MG 1 EACH TAB PO PRN (04:26)
[2022-02-15 04:53] LABS: Glucose,Whole Blood 124 mg/dL (75-99)
[2022-02-15 05:10] LABS: Ionized Calcium 4.9 mg/dL (4.5-5.3)
[2022-02-15 05:19] LABS: ALT 57 U/L (4-49); AST 73 U/L (17-59); African American GFR (CKD) >90 (>60 ml/min/1.73 sqM); Albumin 2.9 g/dL (3.5-5.0); Alkaline Phosphatase 40 U/L (38-126); Anion Gap 2 mmol/L; Blood Urea Nitrogen 17 mg/dL (9-20); Calcium 7.9 mg/dL (8.4-10.2); Carbon Dioxide 27 mmol/L (22-30); Chloride 109 mmol/L (98-107); Glucose 118 mg/dL (74-99); Magnesium 2.3 mg/dL (1.6-2.3); Non-African American GFR(CKD) 85 (>60 ml/min/1.73 sqM); Potassium 4.3 mmol/L (3.5-5.1); Sodium 138 mmol/L (137-145); Total Bilirubin 0.7 mg/dL (0.2-1.3); Total Protein 4.6 g/dL (6.3-8.2)
[2022-02-15 05:55] LABS: Basophils % (A) 0 %; Eosinophils % (A) 0 %; HCT 32.1 % (39.0-53.0); HGB 10.7 gm/dL (13.0-17.5); Lymphocytes # (A) 0.6 k/uL (1.0-4.8); Lymphocytes % (A) 9 %; MCH 30.8 pg (25.0-35.0); MCHC 33.2 g/dL (31.0-37.0); MCV 92.7 fL (80.0-100.0); Mean Platelet Volume 10.1; Monocytes # (A) 0.4 k/uL (0-1.0); Monocytes % (A) 7 %; Neutrophils # (A) 5.4 k/uL (1.3-7.7); Neutrophils % (A) 83 %; Platelet Count 107 k/uL (150-450); RBC 3.47 m/uL (4.30-5.90); RDW 14.3 % (11.5-15.5); WBC 6.5 k/uL (3.8-10.6)
[2022-02-15] MEDS: NITROGLYCERIN-D5W PMX 50 MG in DEXTROSE/WATER 1 250ML.BAG IV SCH (06:02)
[2022-02-15] MEDS: ALBUMIN HUMAN 5% 250 ML in EMPTY BAG 1 BAG IVPB PRN ×8 (06:03→22:30)
[2022-02-15 06:06] LABS: Glucose,Whole Blood 132 mg/dL (75-99)
[2022-02-15] MEDS: KETOROLAC 15 MG/ML 1 ML VIAL IVP SCH ×3 (06:06→18:02)
[2022-02-15 06:54] LABS: Glucose,Whole Blood 132 mg/dL (75-99)
--- NOTE | 2022-02-15 07:00 | XR ---
EXAMINATION TYPE: XR chest 1V portable DATE OF EXAM: 02/15/2022 Comparison: 02/14/22 Clinical History: 71 year old male Tube placement Findings: Median sternotomy wires are present. Post-CABG changes. Right IJ [place] catheter is abnormally loo ped within the right main pulmonary outflow tract. The catheter tip projects towards the left likely in the proximal left main pulmonary artery. Appropriate repositioning is advised. Left-sided chest tu be. No appreciable pneumothorax. Heart mildly enlarged. Mild interstitial prominence is similar. Medi astinal drains. Retained epicardial pacer leads. Interval extubation. Impression: 1. Advise repositioning the patient's right IJ [place]-How[place] catheter. It is looped within the right main pulmonary artery with tip projecting towards the left probably within the proximal left main pulmona ry artery. 2. Mild cardiomegaly. Correlate for continued mild pulmonary vascular congestion.
[2022-02-15] MEDS: IPRATROPIUM-ALBUTEROL 3 ML NEB INHALATION SCH ×4 (07:45→21:12)
[2022-02-15 08:03] LABS: Glucose,Whole Blood 175 mg/dL (75-99)
--- NOTE | 2022-02-15 08:25 | P.PN ---
Subjective Known coronary artery disease status post CABG postop day #1 with DILLARD to LAD venous graft to ramus diagonal and PDA. Patient also had ligation of the left atrial appendage with 35mm atrial click Patient is extubated this morning. He remains in sinus rhythm. Stable hemodynamically. On exam comfortable at rest vital signs are stable chest exam reveals diminished air entry at the bases heart exam reveals first and second heart sounds no gallop abdomen is soft exam extremities did not reveal any edema peripheral pulses are palpable Labs show a hemoglobin of 10.7 platelet count is 107 potassium is 4.3 creatinine is 0.9 Current medications include aspirin and Lipitor 80 mg daily Plavix 75 mg daily Lopressor 12.5 twice a day Blood pressure tolerating we'll add an SOFIE inhibitor Assessment and plan: CAD status post CABG Patient has normal LV systolic function Has had a fairly any eventful perioperative course so far Continue current medications I will start him on losartan 25 mg daily once the blood pressure is stable Objective - Vital Signs Vital signs: Vital Signs Temp 97.5 F L 02/14/22 06:15 Pulse 75 02/15/22 08:00 Resp 17 02/15/22 08:00 BP 103/53 02/15/22 06:30 Pulse Ox 96 02/15/22 08:00 FiO2 45 02/14/22 16:07 Intake & Output 02/14/22 02/15/22 02/15/22 18:59 06:59 18:59 Intake Total 921.333 1979.206 1254.486 Output Total 3842 996 85 Balance -3234.180 529.437 6051.486 Weight 93.6 kg Intake: IV 555.5 1386.0 728 ACETAMINOPHEN IV (For NPO 100 400 ) 1,000 mg In Empty Bag 1 bag @ 400 mls/hr IVPB Q6HR [facility] Rx#:[id number] Albumin Human 5% 250 ml 500 In Empty Bag 1 bag @ 250 mls/hr IVPB Q1HR PRN Rx#: [id number] CO/CI 100 160 20 Lactated Ringers 1,000 ml 250 600 90 @ 20 mls/hr IV .Q24H [facility] Rx#:[id number] Nitroglycerin-D5w Pmx 50 7.5 18.0 mg In Dextrose/Water 1 250ml.bag @ 5 MCG/MIN 1.5 mls/hr IV .Q24H [facility] Rx#: [id number] PRESSURE BAGS 45 108 18 ceFAZolin 2 gm In Sodium 50 100 100 Chloride 0.9% 50 ml @ 100 mls/hr IVPB ONCE ONE Rx# :[id number] Intake, IV Titration 52.320 12.206 26.486 Amount Clevidipine Butyrate 25 1.633 mg In Empty Bag 1 bag @ 1 MG/HR 2 mls/hr IV .Q24H [facility] Rx#:[id number] Insulin Regular 100 unit 10.573 1.986 In Sodium Chloride 0.9% 100 ml @ Per Protocol IV .Q0M [facility] Rx#:[id number] Nitroglycerin-D5w Pmx 50 24.5 mg In Dextrose/Water 1 250ml.bag @ 5 MCG/MIN 1.5 mls/hr IV .Q24H [facility] Rx#: [id number] propofoL 1,000 mg In 52.320 Empty Bag 1 bag @ Titrate IV .Q0M PRN Rx#: [id number] Oral 500 Output: Chest Tube Drainage 392 516 70 Chest Tube Left 132 178 30 Chest Tube Mediastinal 260 338 40 Urine 2250 480 15 Estimated Blood Loss 1200 Other: Voiding Method Indwelling Catheter Indwelling Catheter Indwelling Catheter ABP, PAP, CO, CI - Last Documented Arterial Blood Pressure 105/34 Pulmonary Artery Pressure 30/8 Cardiac Output 8 Cardiac Index 3.8 - Labs CBC & Chem 7: 02/15/22 05:00 02/15/22 05:00 Labs: Abnormal Lab Results - Last 24 Hours (Table) 02/13/22 02/14/22 02/14/22 Range/Units 07:46 08:35 09:48 RBC (4.30-5.90) m/uL Hgb (13.0-17.5) gm/dL Hct (39.0-53.0) % Plt Count (150-450) k/uL Lymphocytes # (1.0-4.8) k/uL PT (9.0-12.0) sec INR (<1.2) ABG pH (7.35-7.45) ABG pCO2 46 H (35-45) mmHg ABG pO2 298 H 216 H (83-108) mmHg ABG HCO3 27 H 27 H (21-25) mmol/L ABG Total CO2 28 H 28 H (19-24) mmol/L ABG O2 Saturation 99.9 H 99.4 H (94-97) % ABG Hematocrit (34.0-46.0) % ABG Potassium (3.4-4.5) mmol/L ABG Ionized Calcium (4.5-5.3) mg/dL ABG Glucose 103 H (75-99) mg/dL ABG Lactic Acid <0.4 L (0.5-1.6) mmol/L Hemoglobin (13.0-17.5) gm/dL Chloride (98-107) mmol/L Glucose (74-99) mg/dL POC Glucose (mg/dL) (75-99) mg/dL Calcium (8.4-10.2) mg/dL Magnesium (1.6-2.3) mg/dL AST (17-59) U/L ALT (4-49) U/L Total Protein (6.3-8.2) g/dL Albumin (3.5-5.0) g/dL Arterial Blood Potassium (3.4-4.5) mmol/L Arterial Blood Glucose 103 H (75-99) mg/dL Crossmatch See Detail 02/14/22 02/14/22 02/14/22 Range/Units 10:45 11:25 12:03 RBC (4.30-5.90) m/uL Hgb (13.0-17.5) gm/dL Hct (39.0-53.0) % Plt Count (150-450) k/uL Lymphocytes # (1.0-4.8) k/uL PT (9.0-12.0) sec INR (<1.2) ABG pH (7.35-7.45) ABG pCO2 46 H (35-45) mmHg ABG pO2 396 H 344 H 252 H (83-108) mmHg ABG HCO3 26 H 27 H 28 H (21-25) mmol/L ABG Total CO2 27 H 29 H 29 H (19-24) mmol/L ABG O2 Saturation 99.9 H 99.8 H 99.5 H (94-97) % ABG Hematocrit 33 L 33 L 32 L (34.0-46.0) % ABG Potassium 5.3 H 5.3 H 5.3 H (3.4-4.5) mmol/L ABG Ionized Calcium 4.3 L (4.5-5.3) mg/dL ABG Glucose 101 H 102 H (75-99) mg/dL ABG Lactic Acid (0.5-1.6) mmol/L Hemoglobin 10.7 L 10.8 L 10.5 L (13.0-17.5) gm/dL Chloride (98-107) mmol/L Glucose (74-99) mg/dL POC Glucose (mg/dL) (75-99) mg/dL Calcium (8.4-10.2) mg/dL Magnesium (1.6-2.3) mg/dL AST (17-59) U/L ALT (4-49) U/L Total Protein (6.3-8.2) g/dL Albumin (3.5-5.0) g/dL Arterial Blood Potassium 5.3 H 5.3 H 5.3 H (3.4-4.5) mmol/L Arterial Blood Glucose 101 H 102 H (75-99) mg/dL Crossmatch 02/14/22 02/14/22 02/14/22 Range/Units 13:45 14:28 14:28 RBC 3.52 L (4.30-5.90) m/uL Hgb 11.1 L D (13.0-17.5) gm/dL Hct 32.4 L (39.0-53.0) % Plt Count 90 L (150-450) k/uL Lymphocytes # 0.8 L (1.0-4.8) k/uL PT 12.5 H (9.0-12.0) sec INR 1.2 H (<1.2) ABG pH (7.35-7.45) ABG pCO2 (35-45) mmHg ABG pO2 149 H (83-108) mmHg ABG HCO3 26 H (21-25) mmol/L ABG Total CO2 27 H (19-24) mmol/L ABG O2 Saturation 99.2 H (94-97) % ABG Hematocrit (34.0-46.0) % ABG Potassium (3.4-4.5) mmol/L ABG Ionized Calcium (4.5-5.3) mg/dL ABG Glucose 101 H (75-99) mg/dL ABG Lactic Acid (0.5-1.6) mmol/L Hemoglobin 11.4 L (13.0-17.5) gm/dL Chloride (98-107) mmol/L Glucose (74-99) mg/dL POC Glucose (mg/dL) (75-99) mg/dL Calcium (8.4-10.2) mg/dL Magnesium (1.6-2.3) mg/dL AST (17-59) U/L ALT (4-49) U/L Total Protein (6.3-8.2) g/dL Albumin (3.5-5.0) g/dL Arterial Blood Potassium (3.4-4.5) mmol/L Arterial Blood Glucose 101 H (75-99) mg/dL Crossmatch 02/14/22 02/14/22 02/14/22 Range/Units 14:28 15:15 17:02 RBC (4.30-5.90) m/uL Hgb (13.0-17.5) gm/dL Hct (39.0-53.0) % Plt Count (150-450) k/uL Lymphocytes # (1.0-4.8) k/uL PT (9.0-12.0) sec INR (<1.2) ABG pH (7.35-7.45) ABG pCO2 (35-45) mmHg ABG pO2 368 H (83-108) mmHg ABG HCO3 26 H (21-25) mmol/L ABG Total CO2 28 H (19-24) mmol/L ABG O2 Saturation 100.0 H (94-97) % ABG Hematocrit (34.0-46.0) % ABG Potassium (3.4-4.5) mmol/L ABG Ionized Calcium (4.5-5.3) mg/dL ABG Glucose (75-99) mg/dL ABG Lactic Acid (0.5-1.6) mmol/L Hemoglobin (13.0-17.5) gm/dL Chloride 110 H (98-107) mmol/L Glucose (74-99) mg/dL POC Glucose (mg/dL) 112 H (75-99) mg/dL Calcium 8.0 L (8.4-10.2) mg/dL Magnesium 2.7 H (1.6-2.3) mg/dL AST 78 H (17-59) U/L ALT 61 H (4-49) U/L Total Protein 4.3 L (6.3-8.2) g/dL Albumin 2.7 L (3.5-5.0) g/dL Arterial Blood Potassium (3.4-4.5) mmol/L Arterial Blood Glucose (75-99) mg/dL Crossmatch 02/14/22 02/14/22 02/14/22 Range/Units 17:30 17:55 18:49 RBC 3.90 L (4.30-5.90) m/uL Hgb 11.6 L (13.0-17.5) gm/dL Hct 35.9 L (39.0-53.0) % Plt Count 111 L (150-450) k/uL Lymphocytes # (1.0-4.8) k/uL PT (9.0-12.0) sec INR (<1.2) ABG pH 7.49 H (7.35-7.45) ABG pCO2 32 L (35-45) mmHg ABG pO2 164 H (83-108) mmHg ABG HCO3 (21-25) mmol/L ABG Total CO2 25 H (19-24) mmol/L ABG O2 Saturation 98.7 H (94-97) % ABG Hematocrit (34.0-46.0) % ABG Potassium (3.4-4.5) mmol/L ABG Ionized Calcium (4.5-5.3) mg/dL ABG Glucose (75-99) mg/dL ABG Lactic Acid (0.5-1.6) mmol/L Hemoglobin (13.0-17.5) gm/dL Chloride (98-107) mmol/L Glucose (74-99) mg/dL POC Glucose (mg/dL) 131 H (75-99) mg/dL Calcium (8.4-10.2) mg/dL Magnesium (1.6-2.3) mg/dL AST (17-59) U/L ALT (4-49) U/L Total Protein (6.3-8.2) g/dL Albumin (3.5-5.0) g/dL Arterial Blood Potassium (3.4-4.5) mmol/L Arterial Blood Glucose (75-99) mg/dL Crossmatch 02/14/22 02/14/22 02/14/22 Range/Units 18:52 19:52 20:30 RBC 3.71 L (4.30-5.90) m/uL Hgb 11.4 L (13.0-17.5) gm/dL Hct 34.1 L (39.0-53.0) % Plt Count 110 L (150-450) k/uL Lymphocytes # 0.6 L (1.0-4.8) k/uL PT (9.0-12.0) sec INR (<1.2) ABG pH (7.35-7.45) ABG pCO2 (35-45) mmHg ABG pO2 (83-108) mmHg ABG HCO3 (21-25) mmol/L ABG Total CO2 (19-24) mmol/L ABG O2 Saturation (94-97) % ABG Hematocrit (34.0-46.0) % ABG Potassium (3.4-4.5) mmol/L ABG Ionized Calcium (4.5-5.3) mg/dL ABG Glucose (75-99) mg/dL ABG Lactic Acid (0.5-1.6) mmol/L Hemoglobin (13.0-17.5) gm/dL Chloride (98-107) mmol/L Glucose (74-99) mg/dL POC Glucose (mg/dL) 130 H 136 H (75-99) mg/dL Calcium (8.4-10.2) mg/dL Magnesium (1.6-2.3) mg/dL AST (17-59) U/L ALT (4-49) U/L Total Protein (6.3-8.2) g/dL Albumin (3.5-5.0) g/dL Arterial Blood Potassium (3.4-4.5) mmol/L Arterial Blood Glucose (75-99) mg/dL Crossmatch 02/14/22 02/14/22 02/14/22 Range/Units 21:02 21:49 22:55 RBC (4.30-5.90) m/uL Hgb (13.0-17.5) gm/dL Hct (39.0-53.0) % Plt Count (150-450) k/uL Lymphocytes # (1.0-4.8) k/uL PT (9.0-12.0) sec INR (<1.2) ABG pH (7.35-7.45) ABG pCO2 (35-45) mmHg ABG pO2 (83-108) mmHg ABG HCO3 (21-25) mmol/L ABG Total CO2 (19-24) mmol/L ABG O2 Saturation (94-97) % ABG Hematocrit (34.0-46.0) % ABG Potassium (3.4-4.5) mmol/L ABG Ionized Calcium (4.5-5.3) mg/dL ABG Glucose (75-99) mg/dL ABG Lactic Acid (0.5-1.6) mmol/L Hemoglobin (13.0-17.5) gm/dL Chloride (98-107) mmol/L Glucose (74-99) mg/dL POC Glucose (mg/dL) 134 H 129 H 127 H (75-99) mg/dL Calcium (8.4-10.2) mg/dL Magnesium (1.6-2.3) mg/dL AST (17-59) U/L ALT (4-49) U/L Total Protein (6.3-8.2) g/dL Albumin (3.5-5.0) g/dL Arterial Blood Potassium (3.4-4.5) mmol/L Arterial Blood Glucose (75-99) mg/dL Crossmatch 02/14/22 02/15/22 02/15/22 Range/Units 23:49 01:01 01:49 RBC (4.30-5.90) m/uL Hgb (13.0-17.5) gm/dL Hct (39.0-53.0) % Plt Count (150-450) k/uL Lymphocytes # (1.0-4.8) k/uL PT (9.0-12.0) sec INR (<1.2) ABG pH (7.35-7.45) ABG pCO2 (35-45) mmHg ABG pO2 (83-108) mmHg ABG HCO3 (21-25) mmol/L ABG Total CO2 (19-24) mmol/L ABG O2 Saturation (94-97) % ABG Hematocrit (34.0-46.0) % ABG Potassium (3.4-4.5) mmol/L ABG Ionized Calcium (4.5-5.3) mg/dL ABG Glucose (75-99) mg/dL ABG Lactic Acid (0.5-1.6) mmol/L Hemoglobin (13.0-17.5) gm/dL Chloride (98-107) mmol/L Glucose (74-99) mg/dL POC Glucose (mg/dL) 122 H 125 H 127 H (75-99) mg/dL Calcium (8.4-10.2) mg/dL Magnesium (1.6-2.3) mg/dL AST (17-59) U/L ALT (4-49) U/L Total Protein (6.3-8.2) g/dL Albumin (3.5-5.0) g/dL Arterial Blood Potassium (3.4-4.5) mmol/L Arterial Blood Glucose (75-99) mg/dL Crossmatch 02/15/22 02/15/22 02/15/22 Range/Units 03:05 03:59 04:51 RBC (4.30-5.90) m/uL Hgb (13.0-17.5) gm/dL Hct (39.0-53.0) % Plt Count (150-450) k/uL Lymphocytes # (1.0-4.8) k/uL PT (9.0-12.0) sec INR (<1.2) ABG pH (7.35-7.45) ABG pCO2 (35-45) mmHg ABG pO2 (83-108) mmHg ABG HCO3 (21-25) mmol/L ABG Total CO2 (19-24) mmol/L ABG O2 Saturation (94-97) % ABG Hematocrit (34.0-46.0) % ABG Potassium (3.4-4.5) mmol/L ABG Ionized Calcium (4.5-5.3) mg/dL ABG Glucose (75-99) mg/dL ABG Lactic Acid (0.5-1.6) mmol/L Hemoglobin (13.0-17.5) gm/dL Chloride (98-107) mmol/L Glucose (74-99) mg/dL POC Glucose (mg/dL) 124 H 125 H 124 H (75-99) mg/dL Calcium (8.4-10.2) mg/dL Magnesium (1.6-2.3) mg/dL AST (17-59) U/L ALT (4-49) U/L Total Protein (6.3-8.2) g/dL Albumin (3.5-5.0) g/dL Arterial Blood Potassium (3.4-4.5) mmol/L Arterial Blood Glucose (75-99) mg/dL Crossmatch 02/15/22 02/15/22 02/15/22 Range/Units 05:00 05:00 06:05 RBC 3.47 L (4.30-5.90) m/uL Hgb 10.7 L (13.0-17.5) gm/dL Hct 32.1 L (39.0-53.0) % Plt Count 107 L (150-450) k/uL Lymphocytes # 0.6 L (1.0-4.8) k/uL PT (9.0-12.0) sec INR (<1.2) ABG pH (7.35-7.45) ABG pCO2 (35-45) mmHg ABG pO2 (83-108) mmHg ABG HCO3 (21-25) mmol/L ABG Total CO2 (19-24) mmol/L ABG O2 Saturation (94-97) % ABG Hematocrit (34.0-46.0) % ABG Potassium (3.4-4.5) mmol/L ABG Ionized Calcium (4.5-5.3) mg/dL ABG Glucose (75-99) mg/dL ABG Lactic Acid (0.5-1.6) mmol/L Hemoglobin (13.0-17.5) gm/dL Chloride 109 H (98-107) mmol/L Glucose 118 H (74-99) mg/dL POC Glucose (mg/dL) 132 H (75-99) mg/dL Calcium 7.9 L (8.4-10.2) mg/dL Magnesium (1.6-2.3) mg/dL AST 73 H (17-59) U/L ALT 57 H (4-49) U/L Total Protein 4.6 L (6.3-8.2) g/dL Albumin 2.9 L (3.5-5.0) g/dL Arterial Blood Potassium (3.4-4.5) mmol/L Arterial Blood Glucose (75-99) mg/dL Crossmatch 02/15/22 02/15/22 Range/Units 06:52 08:01 RBC (4.30-5.90) m/uL Hgb (13.0-17.5) gm/dL Hct (39.0-53.0) % Plt Count (150-450) k/uL Lymphocytes # (1.0-4.8) k/uL PT (9.0-12.0) sec INR (<1.2) ABG pH (7.35-7.45) ABG pCO2 (35-45) mmHg ABG pO2 (83-108) mmHg ABG HCO3 (21-25) mmol/L ABG Total CO2 (19-24) mmol/L ABG O2 Saturation (94-97) % ABG Hematocrit (34.0-46.0) % ABG Potassium (3.4-4.5) mmol/L ABG Ionized Calcium (4.5-5.3) mg/dL ABG Glucose (75-99) mg/dL ABG Lactic Acid (0.5-1.6) mmol/L Hemoglobin (13.0-17.5) gm/dL Chloride (98-107) mmol/L Glucose (74-99) mg/dL POC Glucose (mg/dL) 132 H 175 H (75-99) mg/dL Calcium (8.4-10.2) mg/dL Magnesium (1.6-2.3) mg/dL AST (17-59) U/L ALT (4-49) U/L Total Protein (6.3-8.2) g/dL Albumin (3.5-5.0) g/dL Arterial Blood Potassium (3.4-4.5) mmol/L Arterial Blood Glucose (75-99) mg/dL Crossmatch
[2022-02-15] MEDS: ASPIRIN 325 MG TAB PO SCH (08:28)
[2022-02-15] MEDS: TAMSULOSIN 0.4 MG CAP.ER.24H PO SCH (08:28)
[2022-02-15] MEDS: CLOPIDOGREL 75 MG TAB PO SCH (08:28)
[2022-02-15] MEDS: HEPARIN SODIUM,PORCINE/PF 5,000 UNIT/0.5 ML SYRINGE SQ SCH ×2 (08:28→16:37)
[2022-02-15] MEDS: METOPROLOL TARTRATE 12.5 MG TAB PO SCH ×2 (08:28→21:18)
[2022-02-15] MEDS: ATORVASTATIN 80 MG TAB PO SCH (08:28)
[2022-02-15] MEDS: MUPIROCIN 2% OINT 22 GM TUBE NASAL SCH ×2 (08:31→21:18)
[2022-02-15] MEDS ORDERED: bisacodyL 10 MG SUPP RECTAL PRN (09:00)
[2022-02-15] MEDS ORDERED: PANTOPRAZOLE 40 MG/10 ML VIAL IVP SCH (09:00)
[2022-02-15] MEDS ORDERED: MAGNESIUM HYDROXIDE 2,400 MG/10 ML CUP PO PRN (09:00)
[2022-02-15 09:09] LABS: Glucose,Whole Blood 152 mg/dL (75-99)
[2022-02-15 10:01] LABS: Glucose,Whole Blood 126 mg/dL (75-99)
--- NOTE | 2022-02-15 10:53 | P.PN ---
Subjective Progress Note Date: 02/15/22 Principal diagnosis: Coronary artery disease with left main disease, non-STEMI this admission. Past medical history significant for undiagnosed hyperlipidemia and hypertension, BP H, vertigo, family history of coronary artery disease, lifetime nonsmoker. POD #1 coronary artery bypass grafting 4 vessels with left internal mammary artery to left anterior descending coronary artery, saphenous vein graft to the ramus coronary artery, saphenous vein graft to the diagonal coronary artery, and a saphenous vein graft to the posterior descending coronary artery. Endoscopic harvesting of the right greater saphenous vein. Ligation of the left atrial appendage using a 35 mm Atriclip. Intraoperative epi-aortic ultrasound and transesophageal echocardiogram. Acute blood loss anemia, expected given cardiopulmonary bypass and hemodilution. The patient was seen and examined this morning 02/15/2022 at his bedside in the intensive care unit. Currently he is sitting up to the bedside chair, is awake, alert, oriented 3 and is in no acute apparent distress. He was successfully extubated at 7:06 PM last evening, oxygen saturations are currently 97% on 2 L nasal cannula. He remains hemodynamically stable and is currently on no inotropic or pressor support. Nitroglycerin drip has been discontinued. Right IJ Harwood-Howard catheter and Cordis remain in place with current hemodynamics showing a cardiac output of 8.0, cardiac index 3.8, PA pressures 26/9 and a CVP of 5 mmHg. Bedside telemetry showing normal sinus rhythm heart rate 78 BPM. Atrial and ventricular epicardial pacemaker wires remain in place and connected to backup bedside pacemaker generator on a VVI mode of 50 BPM. Left and mediastinal chest tubes remain in place to low continuous wall suction -20 cm H2O. No air leak is present. Draining thin serosanguineous drainage with the left pleural chest tube draining 80 mL output in the last 8 hours and 280 mL output since surgery. Mediastinal chest tube drained 280 mL output in the last 8 hours and 600 mL output since surgery. Laboratory results this morning show a WBC count of 6.5, hemoglobin 10.7, hematocrit 32.1, platelets 107, sodium 138, potassium 4.3, BUN 17, creatinine 0.92, glucose 118, calcium 7.9, magnesium 2.3, AST 73 and ALT 57. He continues to work with his incentive spirometry and is currently achieving 1250 mL with encouragement. Chest x-ray reviewed. Objective - Vital Signs Vital signs: Vital Signs Temp 97.5 F L 02/14/22 06:15 Pulse 74 02/15/22 07:52 Resp 16 02/15/22 07:52 BP 103/53 02/15/22 06:30 Pulse Ox 97 02/15/22 07:45 FiO2 45 02/14/22 16:07 Intake & Output 02/14/22 02/15/22 02/15/22 18:59 06:59 18:59 Intake Total 873.935 5869.206 605.486 Output Total 3842 996 Balance -3234.180 402.206 605.486 Weight 93.6 kg Intake: IV 555.5 1386.0 579 ACETAMINOPHEN IV (For NPO 100 400 ) 1,000 mg In Empty Bag 1 bag @ 400 mls/hr IVPB Q6HR [facility] Rx#:[id number] Albumin Human 5% 250 ml 500 In Empty Bag 1 bag @ 250 mls/hr IVPB Q1HR PRN Rx#: [id number] CO/CI 100 160 20 Lactated Ringers 1,000 ml 250 600 50 @ 50 mls/hr IV .Q20H [facility] Rx#:[id number] Nitroglycerin-D5w Pmx 50 7.5 18.0 mg In Dextrose/Water 1 250ml.bag @ 5 MCG/MIN 1.5 mls/hr IV .Q24H [facility] Rx#: [id number] PRESSURE BAGS 45 108 9 ceFAZolin 2 gm In Sodium 50 100 Chloride 0.9% 50 ml @ 100 mls/hr IVPB ONCE ONE Rx# :[id number] Intake, IV Titration 52.320 12.206 26.486 Amount Clevidipine Butyrate 25 1.633 mg In Empty Bag 1 bag @ 1 MG/HR 2 mls/hr IV .Q24H [facility] Rx#:[id number] Insulin Regular 100 unit 10.573 1.986 In Sodium Chloride 0.9% 100 ml @ Per Protocol IV .Q0M [facility] Rx#:[id number] Nitroglycerin-D5w Pmx 50 24.5 mg In Dextrose/Water 1 250ml.bag @ 5 MCG/MIN 1.5 mls/hr IV .Q24H [facility] Rx#: [id number] propofoL 1,000 mg In 52.320 Empty Bag 1 bag @ Titrate IV .Q0M PRN Rx#: [id number] Output: Chest Tube Drainage 392 516 Chest Tube Left 132 178 Chest Tube Mediastinal 260 338 Urine 2250 480 Estimated Blood Loss 1200 Other: Voiding Method Indwelling Catheter Indwelling Catheter ABP, PAP, CO, CI - Last Documented Arterial Blood Pressure 121/46 Pulmonary Artery Pressure 25/9 Cardiac Output 8 Cardiac Index 3.8 - Exam CONSTITUTIONAL: Sitting up to the bedside chair in the intensive care unit, appears comfortable, cooperative, no apparent acute distress. HEENT: Neck is supple, no JVD, no lymphadenopathy. Right IJ Cordis and Harwood- Howard catheter in place and functioning. RESPIRATORY: Lungs sounds essentially clear throughout, diminished to his bilateral bases. Respirations are symmetrical and nonlabored. Currently on 2 L nasal cannula with oxygen saturations 97%. Able to achieve 1250 mL on his incentive spirometry. Strong cough. CARDIOVASCULAR: Regular rhythm and rate. S1 and S2 present, negative for S3, gallop or murmur. Sternum is stable. Palpable peripheral pulses bilaterally. No calf pain or tenderness noted. Heart hugger in place with patient demonstrating appropriate use. Knee-high CHIQUI hose and sequential compression devices in place to his bilateral lower extremities. Bedside telemetry showing normal sinus rhythm heart rate 78 BPM. GASTROINTESTINAL: Abdomen soft, nontender, nondistended. Hypoactive bowel sounds present 4 quadrants. Tolerating diet. No guarding or rigidity. GENITOURINARY: Morales present draining clear, yellow urine. Output 300 mL in the last 8 hours. INTEGUMENTARY: Skin is warm and dry with no evidence of clubbing or cyanosis. Midline sternal incision clean dry and well approximated, covered with dry intact dressing. Right lower extremity EVH sites well approximated without redness or drainage. Left arm radial artery harvest sites clean, dry and approximated. No drainage or redness is present. NEUROLOGIC: Cranial nerves II through XII intact. No focal deficits. MUSKULOSKELETAL: Able to move all extremities, strength equal bilaterally, generalized weakness. PSYCHIATRIC: Alert and oriented to person place and time, appropriate affect, intact judgment and insight. INVASIVE LINES AND TUBES: Mediastinal/left pleural chest tubes present and connected to low continuous wall suction, no air leaks present. Mediastinal tube with 280 mL of thin serosanguineous drainage overnight, 600 mL output since surgery. Left pleural chest tube with 80 mL of thin serosanguineous drainage overnight, 280 mL output since surgery. Atrial and ventricular epicardial pacemaker wires present, connected to generator, VVI backup rate 50 bpm. Right internal jugular Harwood/Cordis, right radial arterial line present. Last CO 8.0, CI 3.8, PA 26/9 and CVP 5 mmHg. - Allied health notes Allied health notes reviewed: nursing - Labs CBC & Chem 7: 02/15/22 05:00 02/15/22 05:00 Labs: Abnormal Lab Results - Last 24 Hours (Table) 02/13/22 02/14/22 02/14/22 Range/Units 07:46 08:35 09:48 RBC (4.30-5.90) m/uL Hgb (13.0-17.5) gm/dL Hct (39.0-53.0) % Plt Count (150-450) k/uL Lymphocytes # (1.0-4.8) k/uL PT (9.0-12.0) sec INR (<1.2) ABG pH (7.35-7.45) ABG pCO2 46 H (35-45) mmHg ABG pO2 298 H 216 H (83-108) mmHg ABG HCO3 27 H 27 H (21-25) mmol/L ABG Total CO2 28 H 28 H (19-24) mmol/L ABG O2 Saturation 99.9 H 99.4 H (94-97) % ABG Hematocrit (34.0-46.0) % ABG Potassium (3.4-4.5) mmol/L ABG Ionized Calcium (4.5-5.3) mg/dL ABG Glucose 103 H (75-99) mg/dL ABG Lactic Acid <0.4 L (0.5-1.6) mmol/L Hemoglobin (13.0-17.5) gm/dL Chloride (98-107) mmol/L Glucose (74-99) mg/dL POC Glucose (mg/dL) (75-99) mg/dL Calcium (8.4-10.2) mg/dL Magnesium (1.6-2.3) mg/dL AST (17-59) U/L ALT (4-49) U/L Total Protein (6.3-8.2) g/dL Albumin (3.5-5.0) g/dL Arterial Blood Potassium (3.4-4.5) mmol/L Arterial Blood Glucose 103 H (75-99) mg/dL Crossmatch See Detail 02/14/22 02/14/22 02/14/22 Range/Units 10:45 11:25 12:03 RBC (4.30-5.90) m/uL Hgb (13.0-17.5) gm/dL Hct (39.0-53.0) % Plt Count (150-450) k/uL Lymphocytes # (1.0-4.8) k/uL PT (9.0-12.0) sec INR (<1.2) ABG pH (7.35-7.45) ABG pCO2 46 H (35-45) mmHg ABG pO2 396 H 344 H 252 H (83-108) mmHg ABG HCO3 26 H 27 H 28 H (21-25) mmol/L ABG Total CO2 27 H 29 H 29 H (19-24) mmol/L ABG O2 Saturation 99.9 H 99.8 H 99.5 H (94-97) % ABG Hematocrit 33 L 33 L 32 L (34.0-46.0) % ABG Potassium 5.3 H 5.3 H 5.3 H (3.4-4.5) mmol/L ABG Ionized Calcium 4.3 L (4.5-5.3) mg/dL ABG Glucose 101 H 102 H (75-99) mg/dL ABG Lactic Acid (0.5-1.6) mmol/L Hemoglobin 10.7 L 10.8 L 10.5 L (13.0-17.5) gm/dL Chloride (98-107) mmol/L Glucose (74-99) mg/dL POC Glucose (mg/dL) (75-99) mg/dL Calcium (8.4-10.2) mg/dL Magnesium (1.6-2.3) mg/dL AST (17-59) U/L ALT (4-49) U/L Total Protein (6.3-8.2) g/dL Albumin (3.5-5.0) g/dL Arterial Blood Potassium 5.3 H 5.3 H 5.3 H (3.4-4.5) mmol/L Arterial Blood Glucose 101 H 102 H (75-99) mg/dL Crossmatch 02/14/22 02/14/22 02/14/22 Range/Units 13:45 14:28 14:28 RBC 3.52 L (4.30-5.90) m/uL Hgb 11.1 L D (13.0-17.5) gm/dL Hct 32.4 L (39.0-53.0) % Plt Count 90 L (150-450) k/uL Lymphocytes # 0.8 L (1.0-4.8) k/uL PT 12.5 H (9.0-12.0) sec INR 1.2 H (<1.2) ABG pH (7.35-7.45) ABG pCO2 (35-45) mmHg ABG pO2 149 H (83-108) mmHg ABG HCO3 26 H (21-25) mmol/L ABG Total CO2 27 H (19-24) mmol/L ABG O2 Saturation 99.2 H (94-97) % ABG Hematocrit (34.0-46.0) % ABG Potassium (3.4-4.5) mmol/L ABG Ionized Calcium (4.5-5.3) mg/dL ABG Glucose 101 H (75-99) mg/dL ABG Lactic Acid (0.5-1.6) mmol/L Hemoglobin 11.4 L (13.0-17.5) gm/dL Chloride (98-107) mmol/L Glucose (74-99) mg/dL POC Glucose (mg/dL) (75-99) mg/dL Calcium (8.4-10.2) mg/dL Magnesium (1.6-2.3) mg/dL AST (17-59) U/L ALT (4-49) U/L Total Protein (6.3-8.2) g/dL Albumin (3.5-5.0) g/dL Arterial Blood Potassium (3.4-4.5) mmol/L Arterial Blood Glucose 101 H (75-99) mg/dL Crossmatch 02/14/22 02/14/22 02/14/22 Range/Units 14:28 15:15 17:02 RBC (4.30-5.90) m/uL Hgb (13.0-17.5) gm/dL Hct (39.0-53.0) % Plt Count (150-450) k/uL Lymphocytes # (1.0-4.8) k/uL PT (9.0-12.0) sec INR (<1.2) ABG pH (7.35-7.45) ABG pCO2 (35-45) mmHg ABG pO2 368 H (83-108) mmHg ABG HCO3 26 H (21-25) mmol/L ABG Total CO2 28 H (19-24) mmol/L ABG O2 Saturation 100.0 H (94-97) % ABG Hematocrit (34.0-46.0) % ABG Potassium (3.4-4.5) mmol/L ABG Ionized Calcium (4.5-5.3) mg/dL ABG Glucose (75-99) mg/dL ABG Lactic Acid (0.5-1.6) mmol/L Hemoglobin (13.0-17.5) gm/dL Chloride 110 H (98-107) mmol/L Glucose (74-99) mg/dL POC Glucose (mg/dL) 112 H (75-99) mg/dL Calcium 8.0 L (8.4-10.2) mg/dL Magnesium 2.7 H (1.6-2.3) mg/dL AST 78 H (17-59) U/L ALT 61 H (4-49) U/L Total Protein 4.3 L (6.3-8.2) g/dL Albumin 2.7 L (3.5-5.0) g/dL Arterial Blood Potassium (3.4-4.5) mmol/L Arterial Blood Glucose (75-99) mg/dL Crossmatch 02/14/22 02/14/22 02/14/22 Range/Units 17:30 17:55 18:49 RBC 3.90 L (4.30-5.90) m/uL Hgb 11.6 L (13.0-17.5) gm/dL Hct 35.9 L (39.0-53.0) % Plt Count 111 L (150-450) k/uL Lymphocytes # (1.0-4.8) k/uL PT (9.0-12.0) sec INR (<1.2) ABG pH 7.49 H (7.35-7.45) ABG pCO2 32 L (35-45) mmHg ABG pO2 164 H (83-108) mmHg ABG HCO3 (21-25) mmol/L ABG Total CO2 25 H (19-24) mmol/L ABG O2 Saturation 98.7 H (94-97) % ABG Hematocrit (34.0-46.0) % ABG Potassium (3.4-4.5) mmol/L ABG Ionized Calcium (4.5-5.3) mg/dL ABG Glucose (75-99) mg/dL ABG Lactic Acid (0.5-1.6) mmol/L Hemoglobin (13.0-17.5) gm/dL Chloride (98-107) mmol/L Glucose (74-99) mg/dL POC Glucose (mg/dL) 131 H (75-99) mg/dL Calcium (8.4-10.2) mg/dL Magnesium (1.6-2.3) mg/dL AST (17-59) U/L ALT (4-49) U/L Total Protein (6.3-8.2) g/dL Albumin (3.5-5.0) g/dL Arterial Blood Potassium (3.4-4.5) mmol/L Arterial Blood Glucose (75-99) mg/dL Crossmatch 02/14/22 02/14/22 02/14/22 Range/Units 18:52 19:52 20:30 RBC 3.71 L (4.30-5.90) m/uL Hgb 11.4 L (13.0-17.5) gm/dL Hct 34.1 L (39.0-53.0) % Plt Count 110 L (150-450) k/uL Lymphocytes # 0.6 L (1.0-4.8) k/uL PT (9.0-12.0) sec INR (<1.2) ABG pH (7.35-7.45) ABG pCO2 (35-45) mmHg ABG pO2 (83-108) mmHg ABG HCO3 (21-25) mmol/L ABG Total CO2 (19-24) mmol/L ABG O2 Saturation (94-97) % ABG Hematocrit (34.0-46.0) % ABG Potassium (3.4-4.5) mmol/L ABG Ionized Calcium (4.5-5.3) mg/dL ABG Glucose (75-99) mg/dL ABG Lactic Acid (0.5-1.6) mmol/L Hemoglobin (13.0-17.5) gm/dL Chloride (98-107) mmol/L Glucose (74-99) mg/dL POC Glucose (mg/dL) 130 H 136 H (75-99) mg/dL Calcium (8.4-10.2) mg/dL Magnesium (1.6-2.3) mg/dL AST (17-59) U/L ALT (4-49) U/L Total Protein (6.3-8.2) g/dL Albumin (3.5-5.0) g/dL Arterial Blood Potassium (3.4-4.5) mmol/L Arterial Blood Glucose (75-99) mg/dL Crossmatch 02/14/22 02/14/22 02/14/22 Range/Units 21:02 21:49 22:55 RBC (4.30-5.90) m/uL Hgb (13.0-17.5) gm/dL Hct (39.0-53.0) % Plt Count (150-450) k/uL Lymphocytes # (1.0-4.8) k/uL PT (9.0-12.0) sec INR (<1.2) ABG pH (7.35-7.45) ABG pCO2 (35-45) mmHg ABG pO2 (83-108) mmHg ABG HCO3 (21-25) mmol/L ABG Total CO2 (19-24) mmol/L ABG O2 Saturation (94-97) % ABG Hematocrit (34.0-46.0) % ABG Potassium (3.4-4.5) mmol/L ABG Ionized Calcium (4.5-5.3) mg/dL ABG Glucose (75-99) mg/dL ABG Lactic Acid (0.5-1.6) mmol/L Hemoglobin (13.0-17.5) gm/dL Chloride (98-107) mmol/L Glucose (74-99) mg/dL POC Glucose (mg/dL) 134 H 129 H 127 H (75-99) mg/dL Calcium (8.4-10.2) mg/dL Magnesium (1.6-2.3) mg/dL AST (17-59) U/L ALT (4-49) U/L Total Protein (6.3-8.2) g/dL Albumin (3.5-5.0) g/dL Arterial Blood Potassium (3.4-4.5) mmol/L Arterial Blood Glucose (75-99) mg/dL Crossmatch 02/14/22 02/15/22 02/15/22 Range/Units 23:49 01:01 01:49 RBC (4.30-5.90) m/uL Hgb (13.0-17.5) gm/dL Hct (39.0-53.0) % Plt Count (150-450) k/uL Lymphocytes # (1.0-4.8) k/uL PT (9.0-12.0) sec INR (<1.2) ABG pH (7.35-7.45) ABG pCO2 (35-45) mmHg ABG pO2 (83-108) mmHg ABG HCO3 (21-25) mmol/L ABG Total CO2 (19-24) mmol/L ABG O2 Saturation (94-97) % ABG Hematocrit (34.0-46.0) % ABG Potassium (3.4-4.5) mmol/L ABG Ionized Calcium (4.5-5.3) mg/dL ABG Glucose (75-99) mg/dL ABG Lactic Acid (0.5-1.6) mmol/L Hemoglobin (13.0-17.5) gm/dL Chloride (98-107) mmol/L Glucose (74-99) mg/dL POC Glucose (mg/dL) 122 H 125 H 127 H (75-99) mg/dL Calcium (8.4-10.2) mg/dL Magnesium (1.6-2.3) mg/dL AST (17-59) U/L ALT (4-49) U/L Total Protein (6.3-8.2) g/dL Albumin (3.5-5.0) g/dL Arterial Blood Potassium (3.4-4.5) mmol/L Arterial Blood Glucose (75-99) mg/dL Crossmatch 02/15/22 02/15/22 02/15/22 Range/Units 03:05 03:59 04:51 RBC (4.30-5.90) m/uL Hgb (13.0-17.5) gm/dL Hct (39.0-53.0) % Plt Count (150-450) k/uL Lymphocytes # (1.0-4.8) k/uL PT (9.0-12.0) sec INR (<1.2) ABG pH (7.35-7.45) ABG pCO2 (35-45) mmHg ABG pO2 (83-108) mmHg ABG HCO3 (21-25) mmol/L ABG Total CO2 (19-24) mmol/L ABG O2 Saturation (94-97) % ABG Hematocrit (34.0-46.0) % ABG Potassium (3.4-4.5) mmol/L ABG Ionized Calcium (4.5-5.3) mg/dL ABG Glucose (75-99) mg/dL ABG Lactic Acid (0.5-1.6) mmol/L Hemoglobin (13.0-17.5) gm/dL Chloride (98-107) mmol/L Glucose (74-99) mg/dL POC Glucose (mg/dL) 124 H 125 H 124 H (75-99) mg/dL Calcium (8.4-10.2) mg/dL Magnesium (1.6-2.3) mg/dL AST (17-59) U/L ALT (4-49) U/L Total Protein (6.3-8.2) g/dL Albumin (3.5-5.0) g/dL Arterial Blood Potassium (3.4-4.5) mmol/L Arterial Blood Glucose (75-99) mg/dL Crossmatch 02/15/22 02/15/22 02/15/22 Range/Units 05:00 05:00 06:05 RBC 3.47 L (4.30-5.90) m/uL Hgb 10.7 L (13.0-17.5) gm/dL Hct 32.1 L (39.0-53.0) % Plt Count 107 L (150-450) k/uL Lymphocytes # 0.6 L (1.0-4.8) k/uL PT (9.0-12.0) sec INR (<1.2) ABG pH (7.35-7.45) ABG pCO2 (35-45) mmHg ABG pO2 (83-108) mmHg ABG HCO3 (21-25) mmol/L ABG Total CO2 (19-24) mmol/L ABG O2 Saturation (94-97) % ABG Hematocrit (34.0-46.0) % ABG Potassium (3.4-4.5) mmol/L ABG Ionized Calcium (4.5-5.3) mg/dL ABG Glucose (75-99) mg/dL ABG Lactic Acid (0.5-1.6) mmol/L Hemoglobin (13.0-17.5) gm/dL Chloride 109 H (98-107) mmol/L Glucose 118 H (74-99) mg/dL POC Glucose (mg/dL) 132 H (75-99) mg/dL Calcium 7.9 L (8.4-10.2) mg/dL Magnesium (1.6-2.3) mg/dL AST 73 H (17-59) U/L ALT 57 H (4-49) U/L Total Protein 4.6 L (6.3-8.2) g/dL Albumin 2.9 L (3.5-5.0) g/dL Arterial Blood Potassium (3.4-4.5) mmol/L Arterial Blood Glucose (75-99) mg/dL Crossmatch 02/15/22 02/15/22 Range/Units 06:52 08:01 RBC (4.30-5.90) m/uL Hgb (13.0-17.5) gm/dL Hct (39.0-53.0) % Plt Count (150-450) k/uL Lymphocytes # (1.0-4.8) k/uL PT (9.0-12.0) sec INR (<1.2) ABG pH (7.35-7.45) ABG pCO2 (35-45) mmHg ABG pO2 (83-108) mmHg ABG HCO3 (21-25) mmol/L ABG Total CO2 (19-24) mmol/L ABG O2 Saturation (94-97) % ABG Hematocrit (34.0-46.0) % ABG Potassium (3.4-4.5) mmol/L ABG Ionized Calcium (4.5-5.3) mg/dL ABG Glucose (75-99) mg/dL ABG Lactic Acid (0.5-1.6) mmol/L Hemoglobin (13.0-17.5) gm/dL Chloride (98-107) mmol/L Glucose (74-99) mg/dL POC Glucose (mg/dL) 132 H 175 H (75-99) mg/dL Calcium (8.4-10.2) mg/dL Magnesium (1.6-2.3) mg/dL AST (17-59) U/L ALT (4-49) U/L Total Protein (6.3-8.2) g/dL Albumin (3.5-5.0) g/dL Arterial Blood Potassium (3.4-4.5) mmol/L Arterial Blood Glucose (75-99) mg/dL Crossmatch - Imaging and Cardiology Chest x-ray: report reviewed, image reviewed Assessment and Plan Assessment: 1. Coronary artery disease with left main disease, non-STEMI this admission, status post coronary artery bypass grafting 4 vessels 2. Undiagnosed hyperlipidemia, cholesterol 230, LDL 146, triglycerides 204 3. Hypertension 4. History of BPH, on Flomax as an outpatient 5. History of vertigo 6. Family history of coronary artery disease 7. Lifetime nonsmoker, preoperative FEV1 72% of predicted 8. Acute postoperative blood loss anemia, expected given cardiopulmonary bypass and hemodilution Plan: 1. Continue aspirin, statin, Plavix, and beta marcin. Will increase beta marcin as tolerated. 2. Discontinue IV nitroglycerin drip. 3. Wean O2 as tolerated. Encourage incentive spirometry 10 times every hour while awake. Bronchodilators per pulmonology/critical care medicine. 4. Increase activity as tolerated. PT/OT/cardiac rehab consulted. 5. Will monitor daily labs and chest x-rays. Electrolyte replacement per protocol. 6. GI/DVT prophylaxis. 7. Pain control with current medication regimen. 8. Insulin management per primary care service. Patient is not diabetic, preoperative hemoglobin A1c 5.3% of predicted. 9. Discontinue Harwood. Connect Cordis to continuous CVP monitoring. 10. Continue chest tubes for another 24 hours. 11. Continue Morales catheter for another 24 hours for strict accurate intake and output. Daily weights. 12. More recommendations to follow based on patient's clinical course. Time with Patient: Greater than 30
[2022-02-15 11:11] LABS: Glucose,Whole Blood 108 mg/dL (75-99)
[2022-02-15 11:30] VITALS: BMI 29.6
[2022-02-15 12:14] LABS: Glucose,Whole Blood 119 mg/dL (75-99)
--- NOTE | 2022-02-15 12:27 | P.PN ---
Subjective Progress Note Date: 02/15/22 Principal diagnosis: POD #1 coronary artery bypass grafting 4 vessels with left internal mammary artery to left anterior descending coronary artery, saphenous vein graft to the ramus coronary artery, saphenous vein graft to the diagonal coronary artery, and a saphenous vein graft to the posterior descending coronary artery. Endoscopic harvesting of the right greater saphenous vein. Ligation of the left atrial appendage using a 35 mm Atriclip. Intraoperative epi-aortic ultrasound and transesophageal echocardiogram. On 02/14/2022 patient is seen in the intensive care unit, following his four- vessel coronary artery bypass grafting surgery. Patient had DILLARD to the LAD, SVG to the ramus, SVG to the diet, and SVG to the PDA) Patient remains intubated and sedated, on assist-control mode of ventilation with a rate of 12, tidal volume is 450, FiO2 is currently at 50% and PEEP of 5, postoperative blood gas showed pO2 of 368, pCO2 40 and pH of 7.43 and this was done on FiO2 of 100% which had since been dropped down to 50%. Postop chest x-ray shows endotracheal tube, NG tube, chest tubes, left atrial "in appropriate positions, no evidence of pneumothorax, and scattered pleural parenchymal opacities possibly reflecting atelectasis. Postoperative labs were reviewed showing white blood cell count of 6.6, hemoglobin of 11.1, platelet count of 90, INR is 1.2, sodium is 140, potassium is 4.0, chloride is 110, CO2 is 27, BUN is 13, creatinine 0.79. Patient is currently on lactated Ringer's at a rate of 50 ML per hour, Diprivan at 40 mics per kilo per minute, and nitroglycerin at 5 mics per kilo per minute. Hemodynamically patient is stable, she is in sinus mechanism with a rate of 50 BPM. Blood pressure is 113/53, cardiac output is 6.1, cardiac index is 2.9. Morales catheter is in place, patient is producing urine in the order of 120-160 ML per hour, patient has left pleural chest tube with 65 mL of sanguinous output in the Pleur-evac, and mediastinal chest tube with 100 mL of sanguinous output, no evidence of air leak. Midsternal chest tube incision, and chest tube insertion sites are clean dry and intact, left leg is [place] wrapped. Patient was reevaluated today on 02/15/2022, patient was extubated last night, shortly after he arrived from the OR. He is now sitting at a bedside chair, in no distress, he is hemodynamically stable. His cardiac output is 8.0 and cardiac index is 3.8. CVP is 5, pulmonary artery pressures 26/9. Chest x-ray showed minimal atelectasis. Expected. Continues to have left and mediastinal chest tubes remain in place, connected to low continuous wall suction. No air leak is noted. Patient is doing well with incentive spirometry rolling almost 1250 mL. His labs today are basically unremarkable including CBC and basic metabolic profile/renal profile. Patient is on 2 L nasal cannula and not in any distress. Objective - Vital Signs Vital signs: Vital Signs Temp 97.5 F L 02/14/22 06:15 Pulse 67 02/15/22 11:09 Resp 17 02/15/22 11:09 BP 103/53 02/15/22 06:30 Pulse Ox 95 02/15/22 11:09 FiO2 45 02/14/22 16:07 Intake & Output 02/14/22 02/15/22 02/15/22 18:59 06:59 18:59 Intake Total 887.744 6039.206 1337.772 Output Total 3842 996 285 Balance -3234.180 074.292 7654.772 Weight 93.6 kg 93.6 kg Intake: IV 555.5 1386.0 806 ACETAMINOPHEN IV (For NPO 100 400 ) 1,000 mg In Empty Bag 1 bag @ 400 mls/hr IVPB Q6HR [facility] Rx#:[id number] Albumin Human 5% 250 ml 500 In Empty Bag 1 bag @ 250 mls/hr IVPB Q1HR PRN Rx#: [id number] CO/CI 100 160 20 Lactated Ringers 1,000 ml 250 600 150 @ 20 mls/hr IV .Q24H [facility] Rx#:[id number] Nitroglycerin-D5w Pmx 50 7.5 18.0 mg In Dextrose/Water 1 250ml.bag @ 5 MCG/MIN 1.5 mls/hr IV .Q24H [facility] Rx#: [id number] PRESSURE BAGS 45 108 36 ceFAZolin 2 gm In Sodium 50 100 100 Chloride 0.9% 50 ml @ 100 mls/hr IVPB ONCE ONE Rx# :[id number] Intake, IV Titration 52.320 12.206 31.772 Amount Clevidipine Butyrate 25 1.633 mg In Empty Bag 1 bag @ 1 MG/HR 2 mls/hr IV .Q24H [facility] Rx#:[id number] Insulin Regular 100 unit 10.573 7.272 In Sodium Chloride 0.9% 100 ml @ Per Protocol IV .Q0M [facility] Rx#:[id number] Nitroglycerin-D5w Pmx 50 24.5 mg In Dextrose/Water 1 250ml.bag @ 5 MCG/MIN 1.5 mls/hr IV .Q24H [facility] Rx#: [id number] propofoL 1,000 mg In 52.320 Empty Bag 1 bag @ Titrate IV .Q0M PRN Rx#: [id number] Oral 500 Output: Chest Tube Drainage 392 516 170 Chest Tube Left 132 178 60 Chest Tube Mediastinal 260 338 110 Urine 2250 480 115 Estimated Blood Loss 1200 Other: Voiding Method Indwelling Catheter Indwelling Catheter Indwelling Catheter ABP, PAP, CO, CI - Last Documented Arterial Blood Pressure 117/39 Pulmonary Artery Pressure 30/8 Cardiac Output 8 Cardiac Index 3.8 - Exam CONSTITUTIONAL: Revealed a 71-year-old white male in no distress. HEENT: Supple no neck masses, right IJ catheter is noted. RESPIRATORY: Symmetrical chest expansion diminished breath sounds at the bases no rhonchi no wheezes CARDIOVASCULAR: Distant S1 and S2, no S3 gallop, no murmur. GASTROINTESTINAL: Soft nontender no megaly no rebound. INTEGUMENTARY: No rashes. NEUROLOGIC: Grossly intact alert and oriented 3 no focal deficit MUSKULOSKELETAL: No deformities and no limitation in range of motion PSYCHIATRIC: Normal mood affect and normal mental status examination - Labs CBC & Chem 7: 02/15/22 05:00 02/15/22 05:00 Labs: Abnormal Lab Results - Last 24 Hours (Table) 02/13/22 02/14/22 02/14/22 Range/Units 07:46 08:35 09:48 RBC (4.30-5.90) m/uL Hgb (13.0-17.5) gm/dL Hct (39.0-53.0) % Plt Count (150-450) k/uL Lymphocytes # (1.0-4.8) k/uL PT (9.0-12.0) sec INR (<1.2) ABG pH (7.35-7.45) ABG pCO2 46 H (35-45) mmHg ABG pO2 298 H 216 H (83-108) mmHg ABG HCO3 27 H 27 H (21-25) mmol/L ABG Total CO2 28 H 28 H (19-24) mmol/L ABG O2 Saturation 99.9 H 99.4 H (94-97) % ABG Hematocrit (34.0-46.0) % ABG Potassium (3.4-4.5) mmol/L ABG Ionized Calcium (4.5-5.3) mg/dL ABG Glucose 103 H (75-99) mg/dL ABG Lactic Acid <0.4 L (0.5-1.6) mmol/L Hemoglobin (13.0-17.5) gm/dL Chloride (98-107) mmol/L Glucose (74-99) mg/dL POC Glucose (mg/dL) (75-99) mg/dL Calcium (8.4-10.2) mg/dL Magnesium (1.6-2.3) mg/dL AST (17-59) U/L ALT (4-49) U/L Total Protein (6.3-8.2) g/dL Albumin (3.5-5.0) g/dL Arterial Blood Potassium (3.4-4.5) mmol/L Arterial Blood Glucose 103 H (75-99) mg/dL Crossmatch See Detail 02/14/22 02/14/22 02/14/22 Range/Units 10:45 11:25 12:03 RBC (4.30-5.90) m/uL Hgb (13.0-17.5) gm/dL Hct (39.0-53.0) % Plt Count (150-450) k/uL Lymphocytes # (1.0-4.8) k/uL PT (9.0-12.0) sec INR (<1.2) ABG pH (7.35-7.45) ABG pCO2 46 H (35-45) mmHg ABG pO2 396 H 344 H 252 H (83-108) mmHg ABG HCO3 26 H 27 H 28 H (21-25) mmol/L ABG Total CO2 27 H 29 H 29 H (19-24) mmol/L ABG O2 Saturation 99.9 H 99.8 H 99.5 H (94-97) % ABG Hematocrit 33 L 33 L 32 L (34.0-46.0) % ABG Potassium 5.3 H 5.3 H 5.3 H (3.4-4.5) mmol/L ABG Ionized Calcium 4.3 L (4.5-5.3) mg/dL ABG Glucose 101 H 102 H (75-99) mg/dL ABG Lactic Acid (0.5-1.6) mmol/L Hemoglobin 10.7 L 10.8 L 10.5 L (13.0-17.5) gm/dL Chloride (98-107) mmol/L Glucose (74-99) mg/dL POC Glucose (mg/dL) (75-99) mg/dL Calcium (8.4-10.2) mg/dL Magnesium (1.6-2.3) mg/dL AST (17-59) U/L ALT (4-49) U/L Total Protein (6.3-8.2) g/dL Albumin (3.5-5.0) g/dL Arterial Blood Potassium 5.3 H 5.3 H 5.3 H (3.4-4.5) mmol/L Arterial Blood Glucose 101 H 102 H (75-99) mg/dL Crossmatch 02/14/22 02/14/22 02/14/22 Range/Units 13:45 14:28 14:28 RBC 3.52 L (4.30-5.90) m/uL Hgb 11.1 L D (13.0-17.5) gm/dL Hct 32.4 L (39.0-53.0) % Plt Count 90 L (150-450) k/uL Lymphocytes # 0.8 L (1.0-4.8) k/uL PT 12.5 H (9.0-12.0) sec INR 1.2 H (<1.2) ABG pH (7.35-7.45) ABG pCO2 (35-45) mmHg ABG pO2 149 H (83-108) mmHg ABG HCO3 26 H (21-25) mmol/L ABG Total CO2 27 H (19-24) mmol/L ABG O2 Saturation 99.2 H (94-97) % ABG Hematocrit (34.0-46.0) % ABG Potassium (3.4-4.5) mmol/L ABG Ionized Calcium (4.5-5.3) mg/dL ABG Glucose 101 H (75-99) mg/dL ABG Lactic Acid (0.5-1.6) mmol/L Hemoglobin 11.4 L (13.0-17.5) gm/dL Chloride (98-107) mmol/L Glucose (74-99) mg/dL POC Glucose (mg/dL) (75-99) mg/dL Calcium (8.4-10.2) mg/dL Magnesium (1.6-2.3) mg/dL AST (17-59) U/L ALT (4-49) U/L Total Protein (6.3-8.2) g/dL Albumin (3.5-5.0) g/dL Arterial Blood Potassium (3.4-4.5) mmol/L Arterial Blood Glucose 101 H (75-99) mg/dL Crossmatch 02/14/22 02/14/22 02/14/22 Range/Units 14:28 15:15 17:02 RBC (4.30-5.90) m/uL Hgb (13.0-17.5) gm/dL Hct (39.0-53.0) % Plt Count (150-450) k/uL Lymphocytes # (1.0-4.8) k/uL PT (9.0-12.0) sec INR (<1.2) ABG pH (7.35-7.45) ABG pCO2 (35-45) mmHg ABG pO2 368 H (83-108) mmHg ABG HCO3 26 H (21-25) mmol/L ABG Total CO2 28 H (19-24) mmol/L ABG O2 Saturation 100.0 H (94-97) % ABG Hematocrit (34.0-46.0) % ABG Potassium (3.4-4.5) mmol/L ABG Ionized Calcium (4.5-5.3) mg/dL ABG Glucose (75-99) mg/dL ABG Lactic Acid (0.5-1.6) mmol/L Hemoglobin (13.0-17.5) gm/dL Chloride 110 H (98-107) mmol/L Glucose (74-99) mg/dL POC Glucose (mg/dL) 112 H (75-99) mg/dL Calcium 8.0 L (8.4-10.2) mg/dL Magnesium 2.7 H (1.6-2.3) mg/dL AST 78 H (17-59) U/L ALT 61 H (4-49) U/L Total Protein 4.3 L (6.3-8.2) g/dL Albumin 2.7 L (3.5-5.0) g/dL Arterial Blood Potassium (3.4-4.5) mmol/L Arterial Blood Glucose (75-99) mg/dL Crossmatch 02/14/22 02/14/22 02/14/22 Range/Units 17:30 17:55 18:49 RBC 3.90 L (4.30-5.90) m/uL Hgb 11.6 L (13.0-17.5) gm/dL Hct 35.9 L (39.0-53.0) % Plt Count 111 L (150-450) k/uL Lymphocytes # (1.0-4.8) k/uL PT (9.0-12.0) sec INR (<1.2) ABG pH 7.49 H (7.35-7.45) ABG pCO2 32 L (35-45) mmHg ABG pO2 164 H (83-108) mmHg ABG HCO3 (21-25) mmol/L ABG Total CO2 25 H (19-24) mmol/L ABG O2 Saturation 98.7 H (94-97) % ABG Hematocrit (34.0-46.0) % ABG Potassium (3.4-4.5) mmol/L ABG Ionized Calcium (4.5-5.3) mg/dL ABG Glucose (75-99) mg/dL ABG Lactic Acid (0.5-1.6) mmol/L Hemoglobin (13.0-17.5) gm/dL Chloride (98-107) mmol/L Glucose (74-99) mg/dL POC Glucose (mg/dL) 131 H (75-99) mg/dL Calcium (8.4-10.2) mg/dL Magnesium (1.6-2.3) mg/dL AST (17-59) U/L ALT (4-49) U/L Total Protein (6.3-8.2) g/dL Albumin (3.5-5.0) g/dL Arterial Blood Potassium (3.4-4.5) mmol/L Arterial Blood Glucose (75-99) mg/dL Crossmatch 02/14/22 02/14/22 02/14/22 Range/Units 18:52 19:52 20:30 RBC 3.71 L (4.30-5.90) m/uL Hgb 11.4 L (13.0-17.5) gm/dL Hct 34.1 L (39.0-53.0) % Plt Count 110 L (150-450) k/uL Lymphocytes # 0.6 L (1.0-4.8) k/uL PT (9.0-12.0) sec INR (<1.2) ABG pH (7.35-7.45) ABG pCO2 (35-45) mmHg ABG pO2 (83-108) mmHg ABG HCO3 (21-25) mmol/L ABG Total CO2 (19-24) mmol/L ABG O2 Saturation (94-97) % ABG Hematocrit (34.0-46.0) % ABG Potassium (3.4-4.5) mmol/L ABG Ionized Calcium (4.5-5.3) mg/dL ABG Glucose (75-99) mg/dL ABG Lactic Acid (0.5-1.6) mmol/L Hemoglobin (13.0-17.5) gm/dL Chloride (98-107) mmol/L Glucose (74-99) mg/dL POC Glucose (mg/dL) 130 H 136 H (75-99) mg/dL Calcium (8.4-10.2) mg/dL Magnesium (1.6-2.3) mg/dL AST (17-59) U/L ALT (4-49) U/L Total Protein (6.3-8.2) g/dL Albumin (3.5-5.0) g/dL Arterial Blood Potassium (3.4-4.5) mmol/L Arterial Blood Glucose (75-99) mg/dL Crossmatch 02/14/22 02/14/22 02/14/22 Range/Units 21:02 21:49 22:55 RBC (4.30-5.90) m/uL Hgb (13.0-17.5) gm/dL Hct (39.0-53.0) % Plt Count (150-450) k/uL Lymphocytes # (1.0-4.8) k/uL PT (9.0-12.0) sec INR (<1.2) ABG pH (7.35-7.45) ABG pCO2 (35-45) mmHg ABG pO2 (83-108) mmHg ABG HCO3 (21-25) mmol/L ABG Total CO2 (19-24) mmol/L ABG O2 Saturation (94-97) % ABG Hematocrit (34.0-46.0) % ABG Potassium (3.4-4.5) mmol/L ABG Ionized Calcium (4.5-5.3) mg/dL ABG Glucose (75-99) mg/dL ABG Lactic Acid (0.5-1.6) mmol/L Hemoglobin (13.0-17.5) gm/dL Chloride (98-107) mmol/L Glucose (74-99) mg/dL POC Glucose (mg/dL) 134 H 129 H 127 H (75-99) mg/dL Calcium (8.4-10.2) mg/dL Magnesium (1.6-2.3) mg/dL AST (17-59) U/L ALT (4-49) U/L Total Protein (6.3-8.2) g/dL Albumin (3.5-5.0) g/dL Arterial Blood Potassium (3.4-4.5) mmol/L Arterial Blood Glucose (75-99) mg/dL Crossmatch 02/14/22 02/15/22 02/15/22 Range/Units 23:49 01:01 01:49 RBC (4.30-5.90) m/uL Hgb (13.0-17.5) gm/dL Hct (39.0-53.0) % Plt Count (150-450) k/uL Lymphocytes # (1.0-4.8) k/uL PT (9.0-12.0) sec INR (<1.2) ABG pH (7.35-7.45) ABG pCO2 (35-45) mmHg ABG pO2 (83-108) mmHg ABG HCO3 (21-25) mmol/L ABG Total CO2 (19-24) mmol/L ABG O2 Saturation (94-97) % ABG Hematocrit (34.0-46.0) % ABG Potassium (3.4-4.5) mmol/L ABG Ionized Calcium (4.5-5.3) mg/dL ABG Glucose (75-99) mg/dL ABG Lactic Acid (0.5-1.6) mmol/L Hemoglobin (13.0-17.5) gm/dL Chloride (98-107) mmol/L Glucose (74-99) mg/dL POC Glucose (mg/dL) 122 H 125 H 127 H (75-99) mg/dL Calcium (8.4-10.2) mg/dL Magnesium (1.6-2.3) mg/dL AST (17-59) U/L ALT (4-49) U/L Total Protein (6.3-8.2) g/dL Albumin (3.5-5.0) g/dL Arterial Blood Potassium (3.4-4.5) mmol/L Arterial Blood Glucose (75-99) mg/dL Crossmatch 02/15/22 02/15/22 02/15/22 Range/Units 03:05 03:59 04:51 RBC (4.30-5.90) m/uL Hgb (13.0-17.5) gm/dL Hct (39.0-53.0) % Plt Count (150-450) k/uL Lymphocytes # (1.0-4.8) k/uL PT (9.0-12.0) sec INR (<1.2) ABG pH (7.35-7.45) ABG pCO2 (35-45) mmHg ABG pO2 (83-108) mmHg ABG HCO3 (21-25) mmol/L ABG Total CO2 (19-24) mmol/L ABG O2 Saturation (94-97) % ABG Hematocrit (34.0-46.0) % ABG Potassium (3.4-4.5) mmol/L ABG Ionized Calcium (4.5-5.3) mg/dL ABG Glucose (75-99) mg/dL ABG Lactic Acid (0.5-1.6) mmol/L Hemoglobin (13.0-17.5) gm/dL Chloride (98-107) mmol/L Glucose (74-99) mg/dL POC Glucose (mg/dL) 124 H 125 H 124 H (75-99) mg/dL Calcium (8.4-10.2) mg/dL Magnesium (1.6-2.3) mg/dL AST (17-59) U/L ALT (4-49) U/L Total Protein (6.3-8.2) g/dL Albumin (3.5-5.0) g/dL Arterial Blood Potassium (3.4-4.5) mmol/L Arterial Blood Glucose (75-99) mg/dL Crossmatch 02/15/22 02/15/22 02/15/22 Range/Units 05:00 05:00 06:05 RBC 3.47 L (4.30-5.90) m/uL Hgb 10.7 L (13.0-17.5) gm/dL Hct 32.1 L (39.0-53.0) % Plt Count 107 L (150-450) k/uL Lymphocytes # 0.6 L (1.0-4.8) k/uL PT (9.0-12.0) sec INR (<1.2) ABG pH (7.35-7.45) ABG pCO2 (35-45) mmHg ABG pO2 (83-108) mmHg ABG HCO3 (21-25) mmol/L ABG Total CO2 (19-24) mmol/L ABG O2 Saturation (94-97) % ABG Hematocrit (34.0-46.0) % ABG Potassium (3.4-4.5) mmol/L ABG Ionized Calcium (4.5-5.3) mg/dL ABG Glucose (75-99) mg/dL ABG Lactic Acid (0.5-1.6) mmol/L Hemoglobin (13.0-17.5) gm/dL Chloride 109 H (98-107) mmol/L Glucose 118 H (74-99) mg/dL POC Glucose (mg/dL) 132 H (75-99) mg/dL Calcium 7.9 L (8.4-10.2) mg/dL Magnesium (1.6-2.3) mg/dL AST 73 H (17-59) U/L ALT 57 H (4-49) U/L Total Protein 4.6 L (6.3-8.2) g/dL Albumin 2.9 L (3.5-5.0) g/dL Arterial Blood Potassium (3.4-4.5) mmol/L Arterial Blood Glucose (75-99) mg/dL Crossmatch 02/15/22 02/15/22 02/15/22 Range/Units 06:52 08:01 09:08 RBC (4.30-5.90) m/uL Hgb (13.0-17.5) gm/dL Hct (39.0-53.0) % Plt Count (150-450) k/uL Lymphocytes # (1.0-4.8) k/uL PT (9.0-12.0) sec INR (<1.2) ABG pH (7.35-7.45) ABG pCO2 (35-45) mmHg ABG pO2 (83-108) mmHg ABG HCO3 (21-25) mmol/L ABG Total CO2 (19-24) mmol/L ABG O2 Saturation (94-97) % ABG Hematocrit (34.0-46.0) % ABG Potassium (3.4-4.5) mmol/L ABG Ionized Calcium (4.5-5.3) mg/dL ABG Glucose (75-99) mg/dL ABG Lactic Acid (0.5-1.6) mmol/L Hemoglobin (13.0-17.5) gm/dL Chloride (98-107) mmol/L Glucose (74-99) mg/dL POC Glucose (mg/dL) 132 H 175 H 152 H (75-99) mg/dL Calcium (8.4-10.2) mg/dL Magnesium (1.6-2.3) mg/dL AST (17-59) U/L ALT (4-49) U/L Total Protein (6.3-8.2) g/dL Albumin (3.5-5.0) g/dL Arterial Blood Potassium (3.4-4.5) mmol/L Arterial Blood Glucose (75-99) mg/dL Crossmatch 02/15/22 02/15/22 02/15/22 Range/Units 09:59 11:10 12:12 RBC (4.30-5.90) m/uL Hgb (13.0-17.5) gm/dL Hct (39.0-53.0) % Plt Count (150-450) k/uL Lymphocytes # (1.0-4.8) k/uL PT (9.0-12.0) sec INR (<1.2) ABG pH (7.35-7.45) ABG pCO2 (35-45) mmHg ABG pO2 (83-108) mmHg ABG HCO3 (21-25) mmol/L ABG Total CO2 (19-24) mmol/L ABG O2 Saturation (94-97) % ABG Hematocrit (34.0-46.0) % ABG Potassium (3.4-4.5) mmol/L ABG Ionized Calcium (4.5-5.3) mg/dL ABG Glucose (75-99) mg/dL ABG Lactic Acid (0.5-1.6) mmol/L Hemoglobin (13.0-17.5) gm/dL Chloride (98-107) mmol/L Glucose (74-99) mg/dL POC Glucose (mg/dL) 126 H 108 H 119 H (75-99) mg/dL Calcium (8.4-10.2) mg/dL Magnesium (1.6-2.3) mg/dL AST (17-59) U/L ALT (4-49) U/L Total Protein (6.3-8.2) g/dL Albumin (3.5-5.0) g/dL Arterial Blood Potassium (3.4-4.5) mmol/L Arterial Blood Glucose (75-99) mg/dL Crossmatch Assessment and Plan Assessment: Impression: Coronary artery disease with left main disease, status post CABG 4, postopera tive day #1, non-ST elevation myocardial infarction on this admission. Dyslipidemia Benign essential hypertension Family history of coronary artery disease. Postoperative atelectasis, expected. Recommendation: Continue present supportive care measures Continue beta blockers Plavix statin and aspirin Weaning oxygen accordingly. Continue incentive spirometry. Continue GI and DVT prophylaxis. Discontinue unnecessary lines and catheters. Continue chest tubes for the next 24 hours. We will continue to follow Time with Patient: Less than 30
[2022-02-15] MEDS ORDERED: DEXTROSE 5% IN WATER 100 ML with AMIODARONE 150 MG IV ONE ×4 (13:30→16:33)
[2022-02-15] MEDS ORDERED: AMIODARONE 360 MG in DEXTROSE 5% IN WATER 200 ML IV ONE ×2 (13:40)
[2022-02-15 13:56] LABS: Glucose,Whole Blood 178 mg/dL (75-99)
--- NOTE | 2022-02-15 14:45 | US ---
EXAMINATION TYPE: US vein mapping BIL DATE OF EXAM: 02/11/2022 10:21 AM COMPARISON: NONE CLINICAL HISTORY: preop cardiac surgery. pre bypass SIDE PERFORMED: Bilateral TECHNIQUE: Lower extremity saphenous vein is examined and measured utilizing real time linear array sonography. Patient History: Smoker: No Heart Disease: No Previous DVT: No Vascular Surgery: No Discoloration: No Hypertension: No Diabetes: No Paralysis: No Varicosities: No Edema: No DUPLEX FINDINGS: Greater Saphenous: Color flow seen Measurements in mm: Right Greater Saphenous: Groin: 7.1 x 6.3 mm High Thigh: 4.5 x 5.3 mm Mid Thigh: 4.4 x 4.5 mm Above Knee: 3.9 x 4.8 mm Knee: 3.4 x 3.8 mm Below Knee: 3.8 x 5.0 mm Mid Calf: 2.0 x 2.7 mm At Ankle: 3.1 x 3.5 mm Left Greater Saphenous: Groin: 10.0 x 9.0 mm High Thigh: 4.7 x 4.1 mm Mid Thigh: 3.1 x 3.6 mm Above Knee: 3.1 x 3.4 mm Knee: 2.5 x 2.4 mm Below Knee: 3.9 x 4.3 mm Mid Calf: 2.4 x 2.4 mm At Ankle: 3.1 x 3.7 mm IMPRESSION: 1. Bilateral GSV measurements listed above. 2. Performing surgeon to determine viability as conduit.
[2022-02-15 15:08] LABS: Glucose,Whole Blood 143 mg/dL (75-99)
[2022-02-15 16:02] LABS: Glucose,Whole Blood 133 mg/dL (75-99)
[2022-02-15] MEDS: LACTATED RINGERS 1,000 ML IV SCH (16:38)
[2022-02-15 16:59] LABS: Glucose,Whole Blood 151 mg/dL (75-99)
[2022-02-15 17:58] LABS: Glucose,Whole Blood 183 mg/dL (75-99)
[2022-02-15 18:36] LABS: HCT 26.9 % (39.0-53.0); MCH 30.3 pg (25.0-35.0); MCHC 32.4 g/dL (31.0-37.0); MCV 93.6 fL (80.0-100.0); Mean Platelet Volume 12.5; RBC 2.87 m/uL (4.30-5.90); RDW 13.6 % (11.5-15.5); WBC 5.8 k/uL (3.8-10.6)
[2022-02-15 18:41] LABS: African American GFR (CKD) >90 (>60 ml/min/1.73 sqM); Anion Gap 3 mmol/L; Blood Urea Nitrogen 20 mg/dL (9-20); Calcium 7.9 mg/dL (8.4-10.2); Carbon Dioxide 25 mmol/L (22-30); Chloride 106 mmol/L (98-107); Glucose 147 mg/dL (74-99); Magnesium 2.5 mg/dL (1.6-2.3); Non-African American GFR(CKD) 79 (>60 ml/min/1.73 sqM); Sodium 134 mmol/L (137-145)
[2022-02-15 18:43] LABS: HGB 8.7 gm/dL (13.0-17.5); Platelet Count 76 k/uL (150-450)
[2022-02-15 19:07] LABS: Glucose,Whole Blood 145 mg/dL (75-99)
[2022-02-15 19:22] LABS: ABG Base Excess 0.8 mmol/L; ABG HCO3 26 mmol/L (21-25); ABG Oxygen Saturation 98.1 % (94-97); ABG PCO2 42 mmHg (35-45); ABG PO2 91 mmHg (83-108); ABG TCO2 27 mmol/L (19-24); Allen Test Performed? Yes
[2022-02-15] MEDS ORDERED: AMIODARONE 450 MG in DEXTROSE 5% IN WATER 250 ML IV SCH ×2 (19:40)
[2022-02-15 21:01] LABS: Glucose,Whole Blood 105 mg/dL (75-99)
[2022-02-15] MEDS: SENNOSIDES-DOCUSATE SODIUM 1 EACH TAB PO SCH (21:18)
--- NOTE | 2022-02-15 22:06 | PN ---
PROGRESS NOTE CHIEF COMPLAINT: Coronary artery disease. HISTORY OF PRESENT ILLNESS: This gentleman is doing well. He is awake and alert. He has no complaints of chest pain, shortness of breath, confusion, etc. He is not nauseated. He underwent his CABG successfully, and he is doing well. PHYSICAL EXAMINATION: Breath sounds are heard bilaterally and he is in sinus rhythm with a normal blood pressure. IMPRESSION: Status post coronary artery bypass grafting. PLAN: Continue to follow with Intensive Medicine and Cardiology. MMODL / IJN: [id number] /
[2022-02-15 22:11] LABS: Glucose,Whole Blood 116 mg/dL (75-99)
[2022-02-15 23:07] LABS: Glucose,Whole Blood 124 mg/dL (75-99)
[2022-02-16] MEDS: HEPARIN SODIUM,PORCINE/PF 5,000 UNIT/0.5 ML SYRINGE SQ SCH ×3 (00:18→17:19)
[2022-02-16] MEDS: KETOROLAC 15 MG/ML 1 ML VIAL IVP SCH ×4 (00:18→17:47)
[2022-02-16 00:19] LABS: Glucose,Whole Blood 126 mg/dL (75-99)
[2022-02-16 01:11] LABS: Glucose,Whole Blood 125 mg/dL (75-99)
[2022-02-16 02:36] LABS: Glucose,Whole Blood 123 mg/dL (75-99)
[2022-02-16 04:22] LABS: Glucose,Whole Blood 122 mg/dL (75-99)
[2022-02-16] MEDS: HYDROcodone/APAP 5-325MG 1 EACH TAB PO PRN (04:46)
[2022-02-16 04:55] LABS: Basophils % (A) 0 %; Eosinophils % (A) 0 %; HGB 8.7 gm/dL (13.0-17.5); Lymphocytes # (A) 0.8 k/uL (1.0-4.8); Lymphocytes % (A) 15 %; MCHC 33.4 g/dL (31.0-37.0); MCV 92.9 fL (80.0-100.0); Mean Platelet Volume 11.7; Monocytes # (A) 0.4 k/uL (0-1.0); Monocytes % (A) 8 %; Neutrophils # (A) 3.9 k/uL (1.3-7.7); Neutrophils % (A) 74 %; RDW 14.3 % (11.5-15.5); WBC 5.3 k/uL (3.8-10.6)
[2022-02-16 05:06] LABS: Platelet Count 87 k/uL (150-450)
--- NOTE | 2022-02-16 05:57 | XR ---
EXAMINATION TYPE: XR chest 1V portable DATE OF EXAM: 02/16/2022 CLINICAL HISTORY: Difficulty breathing progress study. Postopen cardiac surgery. TECHNIQUE: Single AP portable upright view of the chest is obtained. COMPARISON: Chest x-ray from one day earlier and older studies. FINDINGS: Overlying sternal wires along with left atrial appendage clip are redemonstrated. Persiste nt left-sided chest tube and mediastinal drainage catheter. Interval removal of right internal jugula r [place]-Howard catheter. Persistent cardiomegaly with small right pleural effusion and moderate central vascular congestion. N o visualized pneumothorax. Small amount of overlying left-sided subcutaneous emphysema remains presen t. IMPRESSION: Cardiomegaly with small right pleural effusion and moderate central vascular congestion, latter more prominent from one day earlier.
[2022-02-16 06:00] LABS: Glucose,Whole Blood 122 mg/dL (75-99)
[2022-02-16 06:14] LABS: Ionized Calcium 4.8 mg/dL (4.5-5.3)
[2022-02-16 07:17] LABS: Albumin 3.4 g/dL (3.5-5.0); Calcium 8.1 mg/dL (8.4-10.2); Potassium 4.3 mmol/L (3.5-5.1); Total Bilirubin 0.8 mg/dL (0.2-1.3)
[2022-02-16 08:01] LABS: Glucose,Whole Blood 155 mg/dL (75-99)
[2022-02-16] MEDS: IPRATROPIUM-ALBUTEROL 3 ML NEB INHALATION SCH ×4 (08:11→20:03)
[2022-02-16] MEDS ORDERED: FUROSEMIDE 10 MG/ML 2 ML VIAL IV STA (08:13)
[2022-02-16] MEDS ORDERED: POTASSIUM CHLORIDE ER 10 MEQ TAB.ER.PRT PO STA ×2 (08:14→17:36)
[2022-02-16] MEDS: ASPIRIN 325 MG TAB PO SCH (08:28)
[2022-02-16] MEDS: CLOPIDOGREL 75 MG TAB PO SCH (08:28)
[2022-02-16] MEDS: ATORVASTATIN 80 MG TAB PO SCH (08:28)
[2022-02-16] MEDS: AMIODARONE 200 MG TAB PO SCH ×2 (08:28→21:05)
[2022-02-16] MEDS: TAMSULOSIN 0.4 MG CAP.ER.24H PO SCH (08:29)
[2022-02-16] MEDS: MUPIROCIN 2% OINT 22 GM TUBE NASAL SCH ×2 (08:30→21:06)
[2022-02-16] MEDS: PANTOPRAZOLE 40 MG TABLET PO SCH (08:31)
[2022-02-16] MEDS: METOPROLOL TARTRATE 12.5 MG TAB PO SCH ×3 (08:31→21:05)
--- NOTE | 2022-02-16 09:01 | P.PN ---
Subjective Progress Note Date: 02/16/22 Principal diagnosis: Coronary artery disease with left main disease, non-STEMI this admission. Past medical history significant for undiagnosed hyperlipidemia and hypertension, BP H, vertigo, family history of coronary artery disease, lifetime nonsmoker. POD #2 coronary artery bypass grafting 4 vessels with left internal mammary artery to left anterior descending coronary artery, saphenous vein graft to the ramus coronary artery, saphenous vein graft to the diagonal coronary artery, and a saphenous vein graft to the posterior descending coronary artery. Endoscopic harvesting of the right greater saphenous vein. Ligation of the left atrial appendage using a 35 mm Atriclip. Intraoperative epi-aortic ultrasound and transesophageal echocardiogram. Acute blood loss anemia, expected given cardiopulmonary bypass and hemodilution. Paroxysmal atrial fibrillation with RVR, a known common occurrence after cardiac surgery. Hypotension, unexpected, likely secondary to his atrial fibrillation. The patient was seen and examined in follow-up today 02/16/2022 at his bedside in the intensive care unit. Currently the patient is sitting up to the bedside chair, is awake, alert, oriented 3 and is in no acute distress. Continues to deny any complaints of pain or shortness of breath at this time. Oxygen saturations are 95% on room air and he is achieving 0053-1232 mL on his incentive spirometry with encouragement. He is hemodynamically stable and currently on no inotropic pressor support. The patient did have an episode of atrial fibrillation yesterday evening and was started on amiodarone drip per protocol with his bedside telemetry showing sinus bradycardia heart rate 59 BPM at this time. Amiodarone drip remains infusing at 0.5 mg/m. During his period of atrial fibrillation he did experience some hypotension which was treated with IV fluids. Currently his blood pressure is 119/62. Atrial and ventricular epicardial pacemaker wires remained in place and connected to back up to bedside pacemaker generator on a VVI mode of 50 BPM. Right IJ cordis remains in place with continuous CVP monitoring, current CVP pressures 7 mmHg. Mediastinal and left pleural chest tubes remain in place to low continuous wall suction -20 cm H2O. No air leak is present. Draining thin serosanguineous drainage with his mediastinal chest tube draining 80 mL over the last 8 hours and 230 mL in the last 24 hours. The left pleural chest tube drained 130 mL output in the last 8 hours and 250 mL output in the last 24 hours. He has been afebrile the last 24 hours. Laboratory results this morning show a WBC count 5.3, hemoglobin 8.7, hematocrit 26.0, platelets 87, sodium 137, potassium 4.3, BUN 23, creatinine 1.11, calcium 8.1, AST 49 and ALT 39. Chest x-ray report has been reviewed. The patient reports that he has been up ambulating in the intensive care unit hallway with standby assistance from nursing staff. Objective - Vital Signs Vital signs: Vital Signs Temp 98.4 F 02/16/22 08:00 Pulse 59 L 02/16/22 08:11 Resp 13 02/16/22 08:11 BP 119/62 02/16/22 08:00 Pulse Ox 95 02/16/22 08:00 FiO2 45 02/14/22 16:07 Intake & Output 02/15/22 02/16/22 02/16/22 18:59 06:59 18:59 Intake Total 3589.595 1644.975 87.994 Output Total 480 550 30 Balance 3109.595 1094.975 57.994 Weight 93.6 kg 97.6 kg Intake: IV 2303 1294.0 85.2 Albumin Human 5% 250 ml 1250 750 In Empty Bag 1 bag @ 250 mls/hr IVPB Q1HR PRN Rx#: [id number] Amio bolus 400 Amiodarone 360 mg In 165 66 Dextrose 5% in Water 200 ml @ 1 MG/MIN 33.333 mls/ hr IV .Q6H ONE Rx#: [id number] Amiodarone 450 mg In 166.0 33.2 Dextrose 5% in Water 250 ml @ 0.5 MG/MIN 16.667 mls/hr IV .Q15H [facility] Rx#: [id number] CO/CI 20 Lactated Ringers 1,000 ml 290 240 40 @ 20 mls/hr IV .Q24H [facility] Rx#:[id number] PRESSURE BAGS 78 72 12 ceFAZolin 2 gm In Sodium 100 Chloride 0.9% 50 ml @ 100 mls/hr IVPB ONCE ONE Rx# :[id number] Intake, IV Titration 36.595 10.975 2.794 Amount Insulin Regular 100 unit 12.095 10.975 2.794 In Sodium Chloride 0.9% 100 ml @ Per Protocol IV .Q0M [facility] Rx#:[id number] Nitroglycerin-D5w Pmx 50 24.5 mg In Dextrose/Water 1 250ml.bag @ 5 MCG/MIN 1.5 mls/hr IV .Q24H [facility] Rx#: [id number] Oral 1250 340 Output: Chest Tube Drainage 210 280 10 Chest Tube Left 80 170 0 Chest Tube Mediastinal 130 110 10 Urine 270 270 20 Other: Voiding Method Indwelling Catheter Indwelling Catheter ABP, PAP, CO, CI - Last Documented Arterial Blood Pressure 122/45 Pulmonary Artery Pressure 30/8 Cardiac Output 8 Cardiac Index 3.8 - Exam CONSTITUTIONAL: Sitting up to the bedside chair in the intensive care unit, appears comfortable, cooperative, no apparent acute distress. HEENT: Neck is supple, no JVD, no lymphadenopathy. Right IJ Cordis place and functioning. RESPIRATORY: Lungs sounds essentially clear throughout, diminished to his bilateral bases. Respirations are symmetrical and nonlabored. Currently on room air with oxygen saturations 95%. Able to achieve 4106-8606 ml on his incentive spirometry. Strong cough. CARDIOVASCULAR: Regular rhythm and bradycardic rate. S1 and S2 present, negative for S3, gallop or murmur. Sternum is stable. Palpable peripheral pulses bilaterally. No calf pain or tenderness noted. Heart hugger in place with patient demonstrating appropriate use. Knee-high CHIQUI hose and sequential compression devices in place to his bilateral lower extremities. Bedside telemetry shsinus bradycardia heart rate 58 BPM. GASTROINTESTINAL: Abdomen soft, nontender, nondistended. Active bowel sounds present 4 quadrants. Tolerating diet. No guarding or rigidity. GENITOURINARY: Morales catheter discontinued. Urine output 165 mL in the last 8 hours. INTEGUMENTARY: Skin is warm and dry with no evidence of clubbing or cyanosis. Midline sternal incision clean dry and well approximated, covered with dry intact dressing. Right lower extremity EVH sites well approximated without redness or drainage. NEUROLOGIC: Cranial nerves II through XII intact. No focal deficits. MUSKULOSKELETAL: Able to move all extremities, strength equal bilaterally, generalized weakness. PSYCHIATRIC: Alert and oriented to person place and time, appropriate affect, intact judgment and insight. INVASIVE LINES AND TUBES: Mediastinal/left pleural chest tubes present and connected to low continuous wall suction, no air leaks present. Mediastinal tube with 80 mL of thin serosanguineous drainage overnight, 230 mL output in the last 24 hours. Left pleural chest tube with 130 mL of thin serosanguineous drainage overnight, 250 mL output in the last 24 hours. Atrial and ventricular epicardial pacemaker wires present, connected to generator, VVI backup rate 50 bpm. Right internal jugular Cordis, right radial arterial line present. Last CVP 9 mmHg. 2! - Allied health notes Allied health notes reviewed: nursing - Labs CBC & Chem 7: 02/16/22 04:45 02/16/22 04:45 Labs: Abnormal Lab Results - Last 24 Hours (Table) 02/15/22 02/15/22 02/15/22 Range/Units 09:08 09:59 11:10 RBC (4.30-5.90) m/uL Hgb (13.0-17.5) gm/dL Hct (39.0-53.0) % Plt Count (150-450) k/uL Lymphocytes # (1.0-4.8) k/uL ABG HCO3 (21-25) mmol/L ABG Total CO2 (19-24) mmol/L ABG O2 Saturation (94-97) % Sodium (137-145) mmol/L BUN (9-20) mg/dL Glucose (74-99) mg/dL POC Glucose (mg/dL) 152 H 126 H 108 H (75-99) mg/dL Calcium (8.4-10.2) mg/dL Magnesium (1.6-2.3) mg/dL Total Protein (6.3-8.2) g/dL Albumin (3.5-5.0) g/dL 02/15/22 02/15/22 02/15/22 Range/Units 12:12 13:54 15:06 RBC (4.30-5.90) m/uL Hgb (13.0-17.5) gm/dL Hct (39.0-53.0) % Plt Count (150-450) k/uL Lymphocytes # (1.0-4.8) k/uL ABG HCO3 (21-25) mmol/L ABG Total CO2 (19-24) mmol/L ABG O2 Saturation (94-97) % Sodium (137-145) mmol/L BUN (9-20) mg/dL Glucose (74-99) mg/dL POC Glucose (mg/dL) 119 H 178 H 143 H (75-99) mg/dL Calcium (8.4-10.2) mg/dL Magnesium (1.6-2.3) mg/dL Total Protein (6.3-8.2) g/dL Albumin (3.5-5.0) g/dL 02/15/22 02/15/22 02/15/22 Range/Units 16:00 16:58 17:56 RBC (4.30-5.90) m/uL Hgb (13.0-17.5) gm/dL Hct (39.0-53.0) % Plt Count (150-450) k/uL Lymphocytes # (1.0-4.8) k/uL ABG HCO3 (21-25) mmol/L ABG Total CO2 (19-24) mmol/L ABG O2 Saturation (94-97) % Sodium (137-145) mmol/L BUN (9-20) mg/dL Glucose (74-99) mg/dL POC Glucose (mg/dL) 133 H 151 H 183 H (75-99) mg/dL Calcium (8.4-10.2) mg/dL Magnesium (1.6-2.3) mg/dL Total Protein (6.3-8.2) g/dL Albumin (3.5-5.0) g/dL 02/15/22 02/15/22 02/15/22 Range/Units 18:17 18:27 19:06 RBC 2.87 L (4.30-5.90) m/uL Hgb 8.7 L D (13.0-17.5) gm/dL Hct 26.9 L (39.0-53.0) % Plt Count 76 L (150-450) k/uL Lymphocytes # (1.0-4.8) k/uL ABG HCO3 (21-25) mmol/L ABG Total CO2 (19-24) mmol/L ABG O2 Saturation (94-97) % Sodium 134 L (137-145) mmol/L BUN (9-20) mg/dL Glucose 147 H (74-99) mg/dL POC Glucose (mg/dL) 145 H (75-99) mg/dL Calcium 7.9 L (8.4-10.2) mg/dL Magnesium 2.5 H (1.6-2.3) mg/dL Total Protein (6.3-8.2) g/dL Albumin (3.5-5.0) g/dL 02/15/22 02/15/22 02/15/22 Range/Units 19:18 21:00 22:09 RBC (4.30-5.90) m/uL Hgb (13.0-17.5) gm/dL Hct (39.0-53.0) % Plt Count (150-450) k/uL Lymphocytes # (1.0-4.8) k/uL ABG HCO3 26 H (21-25) mmol/L ABG Total CO2 27 H (19-24) mmol/L ABG O2 Saturation 98.1 H (94-97) % Sodium (137-145) mmol/L BUN (9-20) mg/dL Glucose (74-99) mg/dL POC Glucose (mg/dL) 105 H 116 H (75-99) mg/dL Calcium (8.4-10.2) mg/dL Magnesium (1.6-2.3) mg/dL Total Protein (6.3-8.2) g/dL Albumin (3.5-5.0) g/dL 02/15/22 02/16/22 02/16/22 Range/Units 23:06 00:16 01:09 RBC (4.30-5.90) m/uL Hgb (13.0-17.5) gm/dL Hct (39.0-53.0) % Plt Count (150-450) k/uL Lymphocytes # (1.0-4.8) k/uL ABG HCO3 (21-25) mmol/L ABG Total CO2 (19-24) mmol/L ABG O2 Saturation (94-97) % Sodium (137-145) mmol/L BUN (9-20) mg/dL Glucose (74-99) mg/dL POC Glucose (mg/dL) 124 H 126 H 125 H (75-99) mg/dL Calcium (8.4-10.2) mg/dL Magnesium (1.6-2.3) mg/dL Total Protein (6.3-8.2) g/dL Albumin (3.5-5.0) g/dL 02/16/22 02/16/22 02/16/22 Range/Units 02:35 04:20 04:45 RBC 2.80 L (4.30-5.90) m/uL Hgb 8.7 L (13.0-17.5) gm/dL Hct 26.0 L (39.0-53.0) % Plt Count 87 L (150-450) k/uL Lymphocytes # 0.8 L (1.0-4.8) k/uL ABG HCO3 (21-25) mmol/L ABG Total CO2 (19-24) mmol/L ABG O2 Saturation (94-97) % Sodium (137-145) mmol/L BUN (9-20) mg/dL Glucose (74-99) mg/dL POC Glucose (mg/dL) 123 H 122 H (75-99) mg/dL Calcium (8.4-10.2) mg/dL Magnesium (1.6-2.3) mg/dL Total Protein (6.3-8.2) g/dL Albumin (3.5-5.0) g/dL 02/16/22 02/16/22 02/16/22 Range/Units 04:45 05:59 08:00 RBC (4.30-5.90) m/uL Hgb (13.0-17.5) gm/dL Hct (39.0-53.0) % Plt Count (150-450) k/uL Lymphocytes # (1.0-4.8) k/uL ABG HCO3 (21-25) mmol/L ABG Total CO2 (19-24) mmol/L ABG O2 Saturation (94-97) % Sodium (137-145) mmol/L BUN 23 H (9-20) mg/dL Glucose 108 H (74-99) mg/dL POC Glucose (mg/dL) 122 H 155 H (75-99) mg/dL Calcium 8.1 L (8.4-10.2) mg/dL Magnesium (1.6-2.3) mg/dL Total Protein 5.0 L (6.3-8.2) g/dL Albumin 3.4 L (3.5-5.0) g/dL - Imaging and Cardiology Chest x-ray: report reviewed, image reviewed Assessment and Plan Assessment: 1. Coronary artery disease with left main disease, non-STEMI this admission, status post coronary artery bypass grafting 4 vessels 2. Undiagnosed hyperlipidemia, cholesterol 230, LDL 146, triglycerides 204 3. Hypertension 4. History of BPH, on Flomax as an outpatient 5. History of vertigo 6. Family history of coronary artery disease 7. Lifetime nonsmoker, preoperative FEV1 72% of predicted 8. Acute postoperative blood loss anemia, expected given cardiopulmonary bypass and hemodilution 9. Paroxysmal atrial fibrillation with RVR, a known common occurrence after cardiac surgery 10. Hypotension, an expected, likely secondary to his atrial fibrillation, resolved Plan: 1. Continue aspirin, statin, Plavix, and beta marcin. Will increase beta marcin as tolerated. Continue metoprolol tartrate with hold parameters. 2. Lasix 20 mg IV 1 now. 3. Wean O2 as tolerated. Encourage incentive spirometry 10 times every hour while awake. Bronchodilators per pulmonology/critical care medicine. 4. Increase activity as tolerated. PT/OT/cardiac rehab following. 5. Will monitor daily labs and chest x-rays. Electrolyte replacement per protocol. 6. GI/DVT prophylaxis. 7. Pain control with current medication regimen. 8. Insulin management per primary care service. Patient is not diabetic, p reoperative hemoglobin A1c 5.3% of predicted. 9. Continue right IJ Cordis to continuous CVP monitoring. 10. Continue left pleural chest tube for another 24 hours. We will remove his mediastinal chest tube today. 11. Continue strict accurate intake and output. Daily weights. 12. Bladder scan every 6 hours and when necessary postvoid residual. If greater than 300 mL me straight cath. 13. Keep atrial and ventricular epicardial pacemaker wires in place and connected to back up bedside pacemaker generator on a VVI mode of 50 BPM. 14. Discontinue amiodarone drip, start amiodarone 200 mg by mouth twice a day for atrial fibrillation prophylaxis. 15. More recommendations to follow based on patient's clinical course. Time with Patient: Greater than 30
[2022-02-16 10:45] LABS: Glucose,Whole Blood 111 mg/dL (75-99)
--- NOTE | 2022-02-16 11:37 | P.PN ---
Subjective Progress Note Date: 02/16/22 Principal diagnosis: POD #2 coronary artery bypass grafting 4 vessels with left internal mammary artery to left anterior descending coronary artery, saphenous vein graft to the ramus coronary artery, saphenous vein graft to the diagonal coronary artery, and a saphenous vein graft to the posterior descending coronary artery. Endoscopic harvesting of the right greater saphenous vein. Ligation of the left atrial appendage using a 35 mm Atriclip. Intraoperative epi-aortic ultrasound and transesophageal echocardiogram. On 02/14/2022 patient is seen in the intensive care unit, following his four- vessel coronary artery bypass grafting surgery. Patient had DILLARD to the LAD, SVG to the ramus, SVG to the diet, and SVG to the PDA) Patient remains intubated and sedated, on assist-control mode of ventilation with a rate of 12, tidal volume is 450, FiO2 is currently at 50% and PEEP of 5, postoperative blood gas showed pO2 of 368, pCO2 40 and pH of 7.43 and this was done on FiO2 of 100% which had since been dropped down to 50%. Postop chest x-ray shows endotracheal tube, NG tube, chest tubes, left atrial "in appropriate positions, no evidence of pneumothorax, and scattered pleural parenchymal opacities possibly reflecting atelectasis. Postoperative labs were reviewed showing white blood cell count of 6.6, hemoglobin of 11.1, platelet count of 90, INR is 1.2, sodium is 140, potassium is 4.0, chloride is 110, CO2 is 27, BUN is 13, creatinine 0.79. Patient is currently on lactated Ringer's at a rate of 50 ML per hour, Diprivan at 40 mics per kilo per minute, and nitroglycerin at 5 mics per kilo per minute. Hemodynamically patient is stable, she is in sinus mechanism with a rate of 50 BPM. Blood pressure is 113/53, cardiac output is 6.1, cardiac index is 2.9. Morales catheter is in place, patient is producing urine in the order of 120-160 ML per hour, patient has left pleural chest tube with 65 mL of sanguinous output in the Pleur-evac, and mediastinal chest tube with 100 mL of sanguinous output, no evidence of air leak. Midsternal chest tube incision, and chest tube insertion sites are clean dry and intact, left leg is [place]rett wrapped. Patient was reevaluated today on 02/15/2022, patient was extubated last night, shortly after he arrived from the OR. He is now sitting at a bedside chair, in no distress, he is hemodynamically stable. His cardiac output is 8.0 and cardiac index is 3.8. CVP is 5, pulmonary artery pressures 26/9. Chest x-ray showed minimal atelectasis. Expected. Continues to have left and mediastinal chest tubes remain in place, connected to low continuous wall suction. No air leak is noted. Patient is doing well with incentive spirometry rolling almost 1250 mL. His labs today are basically unremarkable including CBC and basic metabolic profile/renal profile. Patient is on 2 L nasal cannula and not in any distress. Reevaluated today, Reevaluated today on 02/16/22, patient remains in the ICU, he is on room air, O2 sats is 91%. Patient is also on amiodarone drip for new onset atrial fibrillation, expected post CABG. Patient is on insulin drip at 1.5 units per hour. IV fluid 0.9 normal saline at 20 mL per hour. Continues to have [address], patient is doing fairly well with incentive spirometry achieving 1000 up to 1500. His chest x-ray is showing mostly atelectasis, and this is expected post CABG. WBC count is 5.3 hemoglobin is 8.7 and electrolytes are normal renal profile is normal. Blood sugar is 108. Objective - Vital Signs Vital signs: Vital Signs Temp 98.4 F 02/16/22 08:00 Pulse 59 L 02/16/22 11:19 Resp 13 02/16/22 11:19 BP 120/58 02/16/22 11:00 Pulse Ox 94 L 02/16/22 11:00 FiO2 45 02/14/22 16:07 Intake & Output 02/15/22 02/16/22 02/16/22 18:59 06:59 18:59 Intake Total 3589.595 1644.975 219.556 Output Total 480 550 280 Balance 3109.595 1094.975 -60.444 Weight 93.6 kg 97.6 kg Intake: IV 2303 1294.0 213.0 Albumin Human 5% 250 ml 1250 750 In Empty Bag 1 bag @ 250 mls/hr IVPB Q1HR PRN Rx#: [id number] Amio bolus 400 Amiodarone 360 mg In 165 66 Dextrose 5% in Water 200 ml @ 1 MG/MIN 33.333 mls/ hr IV .Q6H ONE Rx#: [id number] Amiodarone 450 mg In 166.0 83.0 Dextrose 5% in Water 250 ml @ 0.5 MG/MIN 16.667 mls/hr IV .Q15H [facility] Rx#: [id number] CO/CI 20 Lactated Ringers 1,000 ml 290 240 100 @ 20 mls/hr IV .Q24H [facility] Rx#:[id number] PRESSURE BAGS 78 72 30 ceFAZolin 2 gm In Sodium 100 Chloride 0.9% 50 ml @ 100 mls/hr IVPB ONCE ONE Rx# :[id number] Intake, IV Titration 36.595 10.975 6.556 Amount Insulin Regular 100 unit 12.095 10.975 6.556 In Sodium Chloride 0.9% 100 ml @ Per Protocol IV .Q0M [facility] Rx#:[id number] Nitroglycerin-D5w Pmx 50 24.5 mg In Dextrose/Water 1 250ml.bag @ 5 MCG/MIN 1.5 mls/hr IV .Q24H [facility] Rx#: [id number] Oral 1250 340 Output: Chest Tube Drainage 210 280 60 Chest Tube Left 80 170 30 Chest Tube Mediastinal 130 110 30 Urine 270 270 220 Other: Voiding Method Indwelling Catheter Indwelling Catheter ABP, PAP, CO, CI - Last Documented Arterial Blood Pressure 131/44 Pulmonary Artery Pressure 30/8 Cardiac Output 8 Cardiac Index 3.8 - Exam CONSTITUTIONAL: Revealed a 71-year-old white male in no distress. On room air. HEENT: Supple no neck masses, no JVD, no stridor. RESPIRATORY: Diminished breath sound bilaterally no rhonchi no wheezes CARDIOVASCULAR: Normal S1 and S2, no S3 gallop, no murmur. GASTROINTESTINAL: Soft nontender no megaly no rebound. INTEGUMENTARY: No rashes. NEUROLOGIC: Alert and oriented 3, no Focal deficit MUSKULOSKELETAL: No deformities and no limitation in range of motion PSYCHIATRIC: Normal mood affect and normal mental status examination - Labs CBC & Chem 7: 02/16/22 04:45 02/16/22 04:45 Labs: Abnormal Lab Results - Last 24 Hours (Table) 02/15/22 02/15/22 02/15/22 Range/Units 12:12 13:54 15:06 RBC (4.30-5.90) m/uL Hgb (13.0-17.5) gm/dL Hct (39.0-53.0) % Plt Count (150-450) k/uL Lymphocytes # (1.0-4.8) k/uL ABG HCO3 (21-25) mmol/L ABG Total CO2 (19-24) mmol/L ABG O2 Saturation (94-97) % Sodium (137-145) mmol/L BUN (9-20) mg/dL Glucose (74-99) mg/dL POC Glucose (mg/dL) 119 H 178 H 143 H (75-99) mg/dL Calcium (8.4-10.2) mg/dL Magnesium (1.6-2.3) mg/dL Total Protein (6.3-8.2) g/dL Albumin (3.5-5.0) g/dL 02/15/22 02/15/22 02/15/22 Range/Units 16:00 16:58 17:56 RBC (4.30-5.90) m/uL Hgb (13.0-17.5) gm/dL Hct (39.0-53.0) % Plt Count (150-450) k/uL Lymphocytes # (1.0-4.8) k/uL ABG HCO3 (21-25) mmol/L ABG Total CO2 (19-24) mmol/L ABG O2 Saturation (94-97) % Sodium (137-145) mmol/L BUN (9-20) mg/dL Glucose (74-99) mg/dL POC Glucose (mg/dL) 133 H 151 H 183 H (75-99) mg/dL Calcium (8.4-10.2) mg/dL Magnesium (1.6-2.3) mg/dL Total Protein (6.3-8.2) g/dL Albumin (3.5-5.0) g/dL 02/15/22 02/15/22 02/15/22 Range/Units 18:17 18:27 19:06 RBC 2.87 L (4.30-5.90) m/uL Hgb 8.7 L D (13.0-17.5) gm/dL Hct 26.9 L (39.0-53.0) % Plt Count 76 L (150-450) k/uL Lymphocytes # (1.0-4.8) k/uL ABG HCO3 (21-25) mmol/L ABG Total CO2 (19-24) mmol/L ABG O2 Saturation (94-97) % Sodium 134 L (137-145) mmol/L BUN (9-20) mg/dL Glucose 147 H (74-99) mg/dL POC Glucose (mg/dL) 145 H (75-99) mg/dL Calcium 7.9 L (8.4-10.2) mg/dL Magnesium 2.5 H (1.6-2.3) mg/dL Total Protein (6.3-8.2) g/dL Albumin (3.5-5.0) g/dL 02/15/22 02/15/22 02/15/22 Range/Units 19:18 21:00 22:09 RBC (4.30-5.90) m/uL Hgb (13.0-17.5) gm/dL Hct (39.0-53.0) % Plt Count (150-450) k/uL Lymphocytes # (1.0-4.8) k/uL ABG HCO3 26 H (21-25) mmol/L ABG Total CO2 27 H (19-24) mmol/L ABG O2 Saturation 98.1 H (94-97) % Sodium (137-145) mmol/L BUN (9-20) mg/dL Glucose (74-99) mg/dL POC Glucose (mg/dL) 105 H 116 H (75-99) mg/dL Calcium (8.4-10.2) mg/dL Magnesium (1.6-2.3) mg/dL Total Protein (6.3-8.2) g/dL Albumin (3.5-5.0) g/dL 02/15/22 02/16/22 02/16/22 Range/Units 23:06 00:16 01:09 RBC (4.30-5.90) m/uL Hgb (13.0-17.5) gm/dL Hct (39.0-53.0) % Plt Count (150-450) k/uL Lymphocytes # (1.0-4.8) k/uL ABG HCO3 (21-25) mmol/L ABG Total CO2 (19-24) mmol/L ABG O2 Saturation (94-97) % Sodium (137-145) mmol/L BUN (9-20) mg/dL Glucose (74-99) mg/dL POC Glucose (mg/dL) 124 H 126 H 125 H (75-99) mg/dL Calcium (8.4-10.2) mg/dL Magnesium (1.6-2.3) mg/dL Total Protein (6.3-8.2) g/dL Albumin (3.5-5.0) g/dL 02/16/22 02/16/22 02/16/22 Range/Units 02:35 04:20 04:45 RBC 2.80 L (4.30-5.90) m/uL Hgb 8.7 L (13.0-17.5) gm/dL Hct 26.0 L (39.0-53.0) % Plt Count 87 L (150-450) k/uL Lymphocytes # 0.8 L (1.0-4.8) k/uL ABG HCO3 (21-25) mmol/L ABG Total CO2 (19-24) mmol/L ABG O2 Saturation (94-97) % Sodium (137-145) mmol/L BUN (9-20) mg/dL Glucose (74-99) mg/dL POC Glucose (mg/dL) 123 H 122 H (75-99) mg/dL Calcium (8.4-10.2) mg/dL Magnesium (1.6-2.3) mg/dL Total Protein (6.3-8.2) g/dL Albumin (3.5-5.0) g/dL 02/16/22 02/16/22 02/16/22 Range/Units 04:45 05:59 08:00 RBC (4.30-5.90) m/uL Hgb (13.0-17.5) gm/dL Hct (39.0-53.0) % Plt Count (150-450) k/uL Lymphocytes # (1.0-4.8) k/uL ABG HCO3 (21-25) mmol/L ABG Total CO2 (19-24) mmol/L ABG O2 Saturation (94-97) % Sodium (137-145) mmol/L BUN 23 H (9-20) mg/dL Glucose 108 H (74-99) mg/dL POC Glucose (mg/dL) 122 H 155 H (75-99) mg/dL Calcium 8.1 L (8.4-10.2) mg/dL Magnesium (1.6-2.3) mg/dL Total Protein 5.0 L (6.3-8.2) g/dL Albumin 3.4 L (3.5-5.0) g/dL 02/16/22 Range/Units 10:43 RBC (4.30-5.90) m/uL Hgb (13.0-17.5) gm/dL Hct (39.0-53.0) % Plt Count (150-450) k/uL Lymphocytes # (1.0-4.8) k/uL ABG HCO3 (21-25) mmol/L ABG Total CO2 (19-24) mmol/L ABG O2 Saturation (94-97) % Sodium (137-145) mmol/L BUN (9-20) mg/dL Glucose (74-99) mg/dL POC Glucose (mg/dL) 111 H (75-99) mg/dL Calcium (8.4-10.2) mg/dL Magnesium (1.6-2.3) mg/dL Total Protein (6.3-8.2) g/dL Albumin (3.5-5.0) g/dL Assessment and Plan Assessment: Impression: Coronary artery disease with left main disease, status post CABG 4, postoperative day #2 non-ST elevation myocardial infarction on this admission. Dyslipidemia Benign essential hypertension Family history of coronary artery disease. Postoperative atelectasis, expected. Recommendation: Continue incentive spirometry and instructed to use it more often. Continue present supportive care measures Continue beta blockers Plavix statin and aspirin, continue amiodarone for now Continue GI and DVT prophylaxis. Discontinue unnecessary lines and catheters. We will continue to follow Time with Patient: Less than 30
--- NOTE | 2022-02-16 12:30 | PN ---
PROGRESS NOTE Sanam is a 71-year-old gentleman who is admitted to the hospital who underwent bypass surgery. Today is postop day #2. He remains in sinus rhythm, hemodynamically stable and is free of significant symptoms. He is currently on Cordarone 200 b.i.d., aspirin,Lipitor, Plavix and Lopressor 12.5 b.i.d. EXAM: Heart rate is 60 beats per minute. Blood pressure is 140/80. Respiratory is 18. Chest exam reveals diminished air entry at the bases. Heart exam reveals first and second heart sounds. No gallop. There is pericardial rub. Abdomen is soft. Examination of extremities revealed mild edema. Peripheral pulses are felt. LABS: Labs show a hemoglobin of 8.7, platelet count is 87. Potassium is 4.3, creatinine is 1.1. ASSESSMENT: 1. Coronary artery disease status post CABG postop day #2. The patient will continue current medications. I will start him on losartan 25 mg daily if the blood pressure remains elevated. MMODL / IJN: [id number] /
[2022-02-16 12:47] LABS: Glucose,Whole Blood 130 mg/dL (75-99)
[2022-02-16] MEDS: LACTATED RINGERS 1,000 ML IV SCH (17:20)
[2022-02-16] MEDS ORDERED: FUROSEMIDE 10 MG/ML 2 ML VIAL IV ONE (17:36)
[2022-02-16 17:39] LABS: Glucose,Whole Blood 115 mg/dL (70-110)
[2022-02-16] MEDS: INSULIN ASPART (NovoLOG) 100 UNIT/ML VIAL SQ SCH ×2 (17:40→20:59)
--- NOTE | 2022-02-16 19:05 | PN ---
PROGRESS NOTE DATE OF SERVICE: . CHIEF COMPLAINT: Status post coronary artery bypass grafting. HISTORY OF PRESENT ILLNESS: This gentleman is doing well. Blood pressure has been up slightly. One chest tube is out. He has no complaints. He is oriented and alert and not complaining of chest pain, shortness of breath, cough, etc. He has had a little bit of dizziness occasionally. PHYSICAL EXAM: Vitals signs are presently normal. Chest is clear and cardiac exam is sinus. Extremities well perfused. IMPRESSION: Status post coronary artery bypass grafting. PLAN: Continue to follow for as long as he is in ICU. Blood pressure has trended back down. MMODL / IJN: [id number] /
[2022-02-16 20:15] LABS: Glucose,Whole Blood 130 mg/dL (70-110)
[2022-02-16] MEDS: SENNOSIDES-DOCUSATE SODIUM 1 EACH TAB PO SCH (21:05)
[2022-02-17] MEDS: KETOROLAC 15 MG/ML 1 ML VIAL IVP SCH ×3 (00:24→13:56)
[2022-02-17] MEDS: HEPARIN SODIUM,PORCINE/PF 5,000 UNIT/0.5 ML SYRINGE SQ SCH ×4 (00:24→22:52)
--- NOTE | 2022-02-17 07:21 | XR ---
EXAMINATION TYPE: XR chest 1V portable DATE OF EXAM: 02/17/2022 Comparison: 02/16/2022 Clinical History: 71-year-old male Tube placement Findings: Median sternotomy wires are present with post-CABG clips in mediastinum. Left-sided chest tube in darrius ce. No appreciable pneumothorax. Small right pleural effusion remains. Diffuse interstitial density p ersists though slightly decreased in the interval. Heart remains enlarged. Retained epicardial pacer leads. Impression: 1. Cardiomegaly and residual mild interstitial pulmonary edema, improving from prior exam. 2. Small right pleural effusion with adjacent atelectasis and/or consolidation remains.
[2022-02-17 07:42] LABS: Basophils % (A) 0 %; Eosinophils # (A) 0.1 k/uL (0-0.7); Eosinophils % (A) 1 %; Lymphocytes # (A) 0.8 k/uL (1.0-4.8); Lymphocytes % (A) 12 %; MCH 30.9 pg (25.0-35.0); MCHC 33.3 g/dL (31.0-37.0); MCV 92.8 fL (80.0-100.0); Mean Platelet Volume 10.5; Monocytes # (A) 0.5 k/uL (0-1.0); Monocytes % (A) 7 %; Neutrophils # (A) 5.4 k/uL (1.3-7.7); Neutrophils % (A) 78 %; Platelet Count 114 k/uL (150-450); RBC 2.91 m/uL (4.30-5.90); RDW 13.5 % (11.5-15.5); WBC 6.8 k/uL (3.8-10.6)
[2022-02-17 08:18] LABS: Albumin 3.5 g/dL (3.5-5.0); Calcium 8.4 mg/dL (8.4-10.2); Potassium 4.3 mmol/L (3.5-5.1); Total Bilirubin 0.8 mg/dL (0.2-1.3); Total Protein 5.3 g/dL (6.3-8.2)
[2022-02-17] MEDS ORDERED: POTASSIUM CHLORIDE ER 10 MEQ TAB.ER.PRT PO STA ×2 (08:22→22:44)
[2022-02-17] MEDS ORDERED: FUROSEMIDE 10 MG/ML 2 ML VIAL IV STA (08:22)
[2022-02-17] MEDS: IPRATROPIUM-ALBUTEROL 3 ML NEB INHALATION SCH ×5 (08:47→19:17)
--- NOTE | 2022-02-17 09:04 | P.PN ---
Subjective Progress Note Date: 02/17/22 Principal diagnosis: Coronary artery disease with left main disease, non-STEMI this admission. Past medical history significant for undiagnosed hyperlipidemia and hypertension, BP H, vertigo, family history of coronary artery disease, lifetime nonsmoker. POD #3 coronary artery bypass grafting 4 vessels with left internal mammary artery to left anterior descending coronary artery, saphenous vein graft to the ramus coronary artery, saphenous vein graft to the diagonal coronary artery, and a saphenous vein graft to the posterior descending coronary artery. Endoscopic harvesting of the right greater saphenous vein. Ligation of the left atrial appendage using a 35 mm Atriclip. Intraoperative epi-aortic ultrasound and transesophageal echocardiogram. Acute blood loss anemia, expected given cardiopulmonary bypass and hemodilution. Paroxysmal atrial fibrillation with RVR, a known common occurrence after cardiac surgery. Hypotension, unexpected, likely secondary to his atrial fibrillation. The patient was seen and examined today 02/17/2022 at his bedside in the [facility] care unit. Currently he is sitting up to the bedside chair, is awake, alert, oriented 3 and is in no acute apparent distress. The patient reports he has been up ambulating in the intensive care unit hallway this morning with standby assistance from nursing staff. Reports he tolerated walking well. Denies any complaints of pain or shortness of breath at this time. Oxygen saturation are 95% on 1 L nasal cannula and he is achieving 4100-0668 mL on his incentive spirometry. He remains hemodynamically stable and is currently on no inotropic pressor support. No further episodes of atrial fibrillation or hypotension reported. Atrial and ventricular epicardial pacemaker wires remain in place and connected Back up to bedside pacemaker generator on a VVI mode of 50 BPM. Mediastinal chest tube was removed yesterday without incident. Left pleural chest tube remains in place to low continuous wall suction -20 cm H2O. No air leak is present. Draining thin serosanguineous drainage with 120 mL output in the last 24 hours. Laboratory results this morning show a WBC count of 6.8, hemoglobin 9.0, hematocrit 27.0, platelets 114, sodium 135, potassium 4.3, chloride 106, CO2 24, BUN 31, creatinine 1.10, calcium 8.4, AST 41 and ALT 35. He was given 2 doses of Lasix 20 mg IV yesterday 02/16/2022 with good diuresis. He has been afebrile the last 24 hours. Chest x-ray has been re viewed. Right IJ cordis remains in place with continuous CVP monitoring, current CVP pressure 9 mmHg. Objective - Vital Signs Vital signs: Vital Signs Temp 98.2 F 02/17/22 08:00 Pulse 68 02/17/22 08:47 Resp 20 02/17/22 08:00 BP 120/61 02/17/22 08:00 Pulse Ox 94 L 02/17/22 08:00 FiO2 40 02/16/22 15:00 Intake & Output 02/16/22 02/17/22 02/17/22 18:59 06:59 18:59 Intake Total 684.756 312 412 Output Total 570 750 50 Balance 114.756 -438 362 Weight 98.5 kg Intake: IV 428.2 312 52 Amiodarone 450 mg In 116.2 Dextrose 5% in Water 250 ml @ 0.5 MG/MIN 16.667 mls/hr IV .Q15H HANSEL Rx#: [id number] Lactated Ringers 1,000 ml 240 240 40 @ 20 mls/hr IV .Q24H HANSEL Rx#:[id number] PRESSURE BAGS 72 72 12 Intake, IV Titration 6.556 Amount Insulin Regular 100 unit 6.556 In Sodium Chloride 0.9% 100 ml @ Per Protocol IV .Q0M HANSEL Rx#:[id number] Oral 250 360 Output: Chest Tube Drainage 100 0 50 Chest Tube Left 70 0 50 Chest Tube Mediastinal 30 Urine 470 750 0 ABP, PAP, CO, CI - Last Documented Arterial Blood Pressure 125/43 Pulmonary Artery Pressure 30/8 Cardiac Output 8 Cardiac Index 3.8 - Exam CONSTITUTIONAL: Sitting up to the bedside chair in the intensive care unit, appe ars comfortable, cooperative, no apparent acute distress. HEENT: Neck is supple, no JVD, no lymphadenopathy. Right IJ Cordis place and functioning. RESPIRATORY: Lungs sounds essentially clear throughout, diminished to his bilateral bases. Respirations are symmetrical and nonlabored. Currently on 1 L nasal cannula with oxygen saturations 95%. Able to achieve 0124-9090 ml on his incentive spirometry. Strong cough. CARDIOVASCULAR: Regular rhythm and rate. S1 and S2 present, negative for S3, gallop or murmur. Sternum is stable. Palpable peripheral pulses bilaterally. No calf pain or tenderness noted. Heart hugger in place with patient demonstrating appropriate use. Knee-high CHIQUI hose and sequential compression devices in place to his bilateral lower extremities. Bedside telemetry normal sinus rhythm with heart rate 75 BPM. GASTROINTESTINAL: Abdomen soft, nontender, nondistended. Active bowel sounds present 4 quadrants. Tolerating diet. No guarding or rigidity. GENITOURINARY: Continues to void. Urine output 400 mL in the last 8 hours. INTEGUMENTARY: Skin is warm and dry with no evidence of clubbing or cyanosis. Midline sternal incision clean dry and well approximated, covered with dry intact dressing. Right lower extremity EVH sites well approximated without r edness or drainage. NEUROLOGIC: Cranial nerves II through XII intact. No focal deficits. MUSKULOSKELETAL: Able to move all extremities, strength equal bilaterally. PSYCHIATRIC: Alert and oriented to person place and time, appropriate affect, intact judgment and insight. INVASIVE LINES AND TUBES: Left pleural chest tube present and connected to low continuous wall suction, no air leaks present. Left pleural chest tube with 120 mL output in the last 24 hours. Atrial and ventricular epicardial pacemaker wires present, connected to generator, VVI backup rate 50 bpm. Right internal jugular Cordis, right radial arterial line present. Current CVP 9 mmHg. 2! - Allied health notes Allied health notes reviewed: nursing - Labs CBC & Chem 7: 02/17/22 07:30 02/17/22 07:30 Labs: Abnormal Lab Results - Last 24 Hours (Table) 02/16/22 02/16/22 02/16/22 Range/Units 10:43 12:45 17:38 RBC (4.30-5.90) m/uL Hgb (13.0-17.5) gm/dL Hct (39.0-53.0) % Plt Count (150-450) k/uL Lymphocytes # (1.0-4.8) k/uL Sodium (137-145) mmol/L BUN (9-20) mg/dL Glucose (74-99) mg/dL POC Glucose (mg/dL) 111 H 130 H 115 H (75-99) mg/dL Total Protein (6.3-8.2) g/dL 02/16/22 02/17/22 02/17/22 Range/Units 20:13 07:30 07:30 RBC 2.91 L (4.30-5.90) m/uL Hgb 9.0 L (13.0-17.5) gm/dL Hct 27.0 L (39.0-53.0) % Plt Count 114 L (150-450) k/uL Lymphocytes # 0.8 L (1.0-4.8) k/uL Sodium 135 L (137-145) mmol/L BUN 31 H (9-20) mg/dL Glucose 110 H (74-99) mg/dL POC Glucose (mg/dL) 130 H (75-99) mg/dL Total Protein 5.3 L (6.3-8.2) g/dL - Imaging and Cardiology Chest x-ray: report reviewed, image reviewed Assessment and Plan Assessment: 1. Coronary artery disease with left main disease, non-STEMI this admission, status post coronary artery bypass grafting 4 vessels 2. Undiagnosed hyperlipidemia, cholesterol 230, LDL 146, triglycerides 204 3. Hypertension 4. History of BPH, on Flomax as an outpatient 5. History of vertigo 6. Family history of coronary artery disease 7. Lifetime nonsmoker, preoperative FEV1 72% of predicted 8. Acute postoperative blood loss anemia, expected given cardiopulmonary bypass and hemodilution 9. Paroxysmal atrial fibrillation with RVR, a known common occurrence after cardiac surgery 10. Hypotension, an expected, likely secondary to his atrial fibrillation, resolved Plan: 1. Continue aspirin, statin, Plavix, and beta marcin. Will increase metoprolol tartrate to 25 mg by mouth twice a day. Continue metoprolol tartrate with hold parameters. 2. Lasix 20 mg IV 1 now. Potassium chloride 10 mEq by mouth 1 now. 3. Wean O2 as tolerated. Encourage incentive spirometry 10 times every hour while awake. Bronchodilators per pulmonology/critical care medicine. 4. Increase activity as tolerated. PT/OT/cardiac rehab following. 5. Will monitor daily labs and chest x-rays. Electrolyte replacement per protocol. 6. GI/DVT prophylaxis. 7. Pain control with current medication regimen. Blessing discontinued. Start acetaminophen 650 mg by mouth every 4 hours when necessary pain area did 8. Insulin management per primary care service. Patient is not diabetic, preoperative hemoglobin A1c 5.3% of predicted. 9. Remove right IJ Cordis and right radial arterial line. 10. Left pleural chest tube removed without incident. 11. Continue strict accurate intake and output. Daily weights. 12. Bladder scan every 6 hours and when necessary postvoid residual. If greater than 300 mL me straight cath. 13. Atrial and ventricular epicardial pacemaker wires removed without incident. The patient will be on bed rest for 1 hour post pacemaker wire removal. 14. Continue amiodarone 200 mg by mouth twice a day for atrial fibrillation prophylaxis. 15. Transfer orders were placed to the third floor cardiac stepdown unit. Anticipate discharge home within the next 24-48 hours, with home health care. 16. More recommendations to follow based on patient's clinical course. Time with Patient: Greater than 30
[2022-02-17] MEDS: INSULIN ASPART (NovoLOG) 100 UNIT/ML VIAL SQ SCH ×4 (09:14→20:25)
[2022-02-17] MEDS: ASPIRIN 325 MG TAB PO SCH (09:15)
[2022-02-17] MEDS: PANTOPRAZOLE 40 MG TABLET PO SCH (09:15)
[2022-02-17] MEDS: CLOPIDOGREL 75 MG TAB PO SCH (09:16)
[2022-02-17] MEDS: TAMSULOSIN 0.4 MG CAP.ER.24H PO SCH (09:16)
[2022-02-17] MEDS: AMIODARONE 200 MG TAB PO SCH ×2 (09:16→20:28)
[2022-02-17] MEDS: ATORVASTATIN 80 MG TAB PO SCH (09:16)
[2022-02-17] MEDS: MUPIROCIN 2% OINT 22 GM TUBE NASAL SCH ×2 (09:17→20:28)
[2022-02-17] MEDS: METOPROLOL TARTRATE 25 MG TAB PO SCH ×2 (09:22→20:29)
--- NOTE | 2022-02-17 11:12 | PN ---
PROGRESS NOTE Diego is a 71-year-old gentleman with history of coronary artery disease status post coronary artery bypass grafting. He is doing well, currently free of any cardiac symptoms. Remains in sinus rhythm on amiodarone 200 b.i.d. He is also on aspirin Lipitor, Plavix, Lopressor. On exam, heart rate is 70 beats per minute, blood pressure is 130/62, respirations 18. There is no jugular venous distention. Chest exam reveals diminished air entry at the bases. Heart exam reveals first and second heart sounds. No gallop. No murmur. Abdomen is soft. Exam of extremities did not reveal any edema. Peripheral pulses are felt. ASSESSMENT: 1. Coronary artery disease status post coronary artery bypass grafting. 2. Postop atrial fibrillation. PLAN: Patient will continue current medications. MMODL / IJN: [id number] /
[2022-02-17 11:39] LABS: Glucose,Whole Blood 102 mg/dL (70-110)
--- NOTE | 2022-02-17 13:58 | P.PN ---
Subjective Progress Note Date: 02/17/22 Principal diagnosis: POD #3 coronary artery bypass grafting 4 vessels with left internal mammary artery to left anterior descending coronary artery, saphenous vein graft to the ramus coronary artery, saphenous vein graft to the diagonal coronary artery, and a saphenous vein graft to the posterior descending coronary artery. Endoscopic harvesting of the right greater saphenous vein. Ligation of the left atrial appendage using a 35 mm Atriclip. Intraoperative epi-aortic ultrasound and transesophageal echocardiogram. On 02/14/2022 patient is seen in the intensive care unit, following his four- vessel coronary artery bypass grafting surgery. Patient had DILLARD to the LAD, SVG to the ramus, SVG to the diet, and SVG to the PDA) Patient remains intubated and sedated, on assist-control mode of ventilation with a rate of 12, tidal volume is 450, FiO2 is currently at 50% and PEEP of 5, postoperative blood gas showed pO2 of 368, pCO2 40 and pH of 7.43 and this was done on FiO2 of 100% which had since been dropped down to 50%. Postop chest x-ray shows endotracheal tube, NG tube, chest tubes, left atrial "in appropriate positions, no evidence of pneumothorax, and scattered pleural parenchymal opacities possibly reflecting atelectasis. Postoperative labs were reviewed showing white blood cell count of 6.6, hemoglobin of 11.1, platelet count of 90, INR is 1.2, sodium is 140, potassium is 4.0, chloride is 110, CO2 is 27, BUN is 13, creatinine 0.79. Patient is currently on lactated Ringer's at a rate of 50 ML per hour, Diprivan at 40 mics per kilo per minute, and nitroglycerin at 5 mics per kilo per minute. Hemodynamically patient is stable, she is in sinus mechanism with a rate of 50 BPM. Blood pressure is 113/53, cardiac output is 6.1, cardiac index is 2.9. Morales catheter is in place, patient is producing urine in the order of 120-160 ML per hour, patient has left pleural chest tube with 65 mL of sanguinous output in the Pleur-evac, and mediastinal chest tube with 100 mL of sanguinous output, no evidence of air leak. Midsternal chest tube incision, and chest tube insertion sites are clean dry and intact, left leg is Everett wrapped. Patient was reevaluated today on 02/15/2022, patient was extubated last night, shortly after he arrived from the OR. He is now sitting at a bedside chair, in no distress, he is hemodynamically stable. His cardiac output is 8.0 and cardiac index is 3.8. CVP is 5, pulmonary artery pressures 26/9. Chest x-ray showed minimal atelectasis. Expected. Continues to have left and mediastinal chest tubes remain in place, connected to low continuous wall suction. No air leak is noted. Patient is doing well with incentive spirometry rolling almost 1250 mL. His labs today are basically unremarkable including CBC and basic metabolic profile/renal profile. Patient is on 2 L nasal cannula and not in any distress. Reevaluated today, Reevaluated today on 02/16/22, patient remains in the ICU, he is on room air, O2 sats is 91%. Patient is also on amiodarone drip for new onset atrial fibrillation, expected post CABG. Patient is on insulin drip at 1.5 units per hour. IV fluid 0.9 normal saline at 20 mL per hour. Continues to have [address], patient is doing fairly well with incentive spirometry achieving 1000 up to 1500. His chest x-ray is showing mostly atelectasis, and this is expected post CABG. WBC count is 5.3 hemoglobin is 8.7 and electrolytes are normal renal profile is normal. Blood sugar is 108. Reevaluated today on 02/18/20, patient is doing well, his chest tubes and mediastinal chest tubes have been removed. Patient is on 2 L nasal cannula, O2 sats is 94%. Chest x-ray showed minimal postoperative atelectasis as expected. Patient is in sinus rhythm, no more atrial fibrillation. Patient denies any complaints, and he is being considered for discharge tomorrow CBC is normal basic metabolic profile is normal Objective - Vital Signs Vital signs: Vital Signs Temp 98 F 02/17/22 12:00 Pulse 69 02/17/22 13:00 Resp 19 02/17/22 13:00 BP 127/64 02/17/22 13:00 Pulse Ox 94 L 02/17/22 13:00 FiO2 40 02/16/22 15:00 Intake & Output 02/16/22 02/17/22 02/17/22 18:59 06:59 18:59 Intake Total 684.756 312 523 Output Total 570 750 850 Balance 114.756 -438 -327 Weight 98.5 kg Intake: IV 428.2 312 113 Amiodarone 450 mg In 116.2 Dextrose 5% in Water 250 ml @ 0.5 MG/MIN 16.667 mls/hr IV .Q15H HANSEL Rx#: [id number] Lactated Ringers 1,000 ml 240 240 80 @ 20 mls/hr IV .Q24H HANSEL Rx#:[id number] PRESSURE BAGS 72 72 33 Intake, IV Titration 6.556 Amount Insulin Regular 100 unit 6.556 In Sodium Chloride 0.9% 100 ml @ Per Protocol IV .Q0M HANSEL Rx#:[id number] Oral 250 410 Output: Chest Tube Drainage 100 0 50 Chest Tube Left 70 0 50 Chest Tube Mediastinal 30 Urine 470 750 800 Other: Voiding Method Urinal ABP, PAP, CO, CI - Last Documented Arterial Blood Pressure 135/49 Pulmonary Artery Pressure 30/8 Cardiac Output 8 Cardiac Index 3.8 - Exam CONSTITUTIONAL: Revealed a 71-year-old white male in no distress. 2 L nasal cannula, O2 sats is 94% HEENT: Supple no neck masses, no JVD, no stridor. RESPIRATORY: Diminished breath sound bilaterally no rhonchi no wheezes CARDIOVASCULAR: Normal S1 and S2, no S3 gallop, no murmur. GASTROINTESTINAL: Soft nontender no megaly no rebound. INTEGUMENTARY: No rashes. NEUROLOGIC: Alert and oriented 3, no Focal deficit MUSKULOSKELETAL: No deformities and no limitation in range of motion PSYCHIATRIC: Normal mood affect and normal mental status examination - Labs CBC & Chem 7: 02/17/22 07:30 02/17/22 07:30 Labs: Abnormal Lab Results - Last 24 Hours (Table) 02/16/22 02/16/22 02/17/22 Range/Units 17:38 20:13 07:30 RBC 2.91 L (4.30-5.90) m/uL Hgb 9.0 L (13.0-17.5) gm/dL Hct 27.0 L (39.0-53.0) % Plt Count 114 L (150-450) k/uL Lymphocytes # 0.8 L (1.0-4.8) k/uL Sodium (137-145) mmol/L BUN (9-20) mg/dL Glucose (74-99) mg/dL POC Glucose (mg/dL) 115 H 130 H (70-110) mg/dL Total Protein (6.3-8.2) g/dL 02/17/22 Range/Units 07:30 RBC (4.30-5.90) m/uL Hgb (13.0-17.5) gm/dL Hct (39.0-53.0) % Plt Count (150-450) k/uL Lymphocytes # (1.0-4.8) k/uL Sodium 135 L (137-145) mmol/L BUN 31 H (9-20) mg/dL Glucose 110 H (74-99) mg/dL POC Glucose (mg/dL) (70-110) mg/dL Total Protein 5.3 L (6.3-8.2) g/dL Assessment and Plan Assessment: Impression: Coronary artery disease with left main disease, status post CABG 4, postoperative day #3 non-ST elevation myocardial infarction on this admission. Dyslipidemia Benign essential hypertension Family history of coronary artery disease. Postoperative atelectasis, expected. Recommendation: Continue incentive spirometry and instructed to use it more often. Continue present supportive care measures Continue beta blockers Plavix statin and aspirin Continue GI and DVT prophylaxis. Possible discharge in a.m. Time with Patient: Less than 30
[2022-02-17 16:20] LABS: Glucose,Whole Blood 117 mg/dL (70-110)
[2022-02-17 17:26] LABS: Glucose,Whole Blood 138 mg/dL (70-110)
[2022-02-17] MEDS: ACETAMINOPHEN TAB 325 MG TAB PO PRN (18:21)
--- NOTE | 2022-02-17 20:06 | PN ---
PROGRESS NOTE DATE OF SERVICE: 02/17/2022 CHIEF COMPLAINT: Status post coronary artery bypass grafting. HISTORY OF PRESENT ILLNESS: This gentleman is doing well. He remains awake, alert and fairly comfortable. He has had no shortness of breath, nausea, chills, etc. Second chest tube has been removed and he will be moving to telemetry today and possibly home tomorrow. PHYSICAL EXAMINATION: Vital signs are normal. Chest is clear. Cardiac exam is normal. Abdomen is soft and nontender. IMPRESSION: Status post coronary artery bypass grafting. PLAN: Probably home tomorrow. MMODL / IJN: [id number] /
[2022-02-17 20:23] LABS: Glucose,Whole Blood 121 mg/dL (70-110)
[2022-02-17] MEDS: SENNOSIDES-DOCUSATE SODIUM 1 EACH TAB PO SCH (20:29)
[2022-02-17 22:27] LABS: Glucose,Whole Blood 118 mg/dL (70-110)
[2022-02-17] MEDS ORDERED: METOPROLOL TARTRATE 25 MG TAB PO STA (22:43)
[2022-02-17] MEDS ORDERED: FUROSEMIDE 10 MG/ML 2 ML VIAL IV ONE (22:44)
[2022-02-18 01:54] LABS: Glucose,Whole Blood 108 mg/dL (70-110)
[2022-02-18 06:01] LABS: Glucose,Whole Blood 113 mg/dL (70-110)
[2022-02-18] MEDS: PANTOPRAZOLE 40 MG TABLET PO SCH (06:53)
[2022-02-18] MEDS: INSULIN ASPART (NovoLOG) 100 UNIT/ML VIAL SQ SCH ×4 (06:54→20:50)
[2022-02-18] MEDS: IPRATROPIUM-ALBUTEROL 3 ML NEB INHALATION SCH ×4 (07:10→21:11)
--- NOTE | 2022-02-18 07:18 | XR ---
EXAMINATION TYPE: XR chest 2V DATE OF EXAM: 02/18/2022 HISTORY: Postoperative cardiac surgery COMPARISON: 02/17/2022 TECHNIQUE: Single view of the chest is submitted. FINDINGS: Left-sided chest tube has been removed. No evidence for pneumothorax. Persistent pleural-parenchymal opacity seen bilaterally unchanged from prior study. The heart is stable. Changes of median sternotomy. Hilar and mediastinal structures are within normal limits. Degenerative changes are seen of the dorsal spine. IMPRESSION: 1. Left-sided chest tube has been removed. No evidence for pneumothorax. Persistent pleural-parenchy mal opacity seen bilaterally unchanged from prior study.
[2022-02-18] MEDS: METOPROLOL TARTRATE 25 MG TAB PO SCH (08:16)
[2022-02-18] MEDS: AMIODARONE 200 MG TAB PO SCH ×2 (08:16→20:51)
[2022-02-18] MEDS: HEPARIN SODIUM,PORCINE/PF 5,000 UNIT/0.5 ML SYRINGE SQ SCH ×3 (08:16→23:19)
[2022-02-18] MEDS: ATORVASTATIN 80 MG TAB PO SCH (08:16)
[2022-02-18] MEDS: ASPIRIN 325 MG TAB PO SCH (08:16)
[2022-02-18] MEDS: CLOPIDOGREL 75 MG TAB PO SCH (08:16)
[2022-02-18] MEDS: TAMSULOSIN 0.4 MG CAP.ER.24H PO SCH (08:16)
[2022-02-18] MEDS ORDERED: AMIODARONE 200 MG TAB PO ONE (09:00)
[2022-02-18] MEDS ORDERED: METOPROLOL TARTRATE 25 MG TAB PO ONE (09:00)
[2022-02-18] MEDS ORDERED: AMIODARONE 200 MG TAB PO SCH (09:00)
[2022-02-18 09:37] LABS: HCT 26.7 % (39.0-53.0); HGB 8.9 gm/dL (13.0-17.5); MCH 30.8 pg (25.0-35.0); MCHC 33.3 g/dL (31.0-37.0); MCV 92.2 fL (80.0-100.0); Platelet Count 144 k/uL (150-450); WBC 5.4 k/uL (3.8-10.6)
[2022-02-18 09:46] LABS: Calcium 8.3 mg/dL (8.4-10.2); Magnesium 2.4 mg/dL (1.6-2.3); Potassium 4.1 mmol/L (3.5-5.1)
[2022-02-18] MEDS ORDERED: FUROSEMIDE 10 MG/ML 4 ML VIAL IV STA (09:49)
[2022-02-18] MEDS ORDERED: POTASSIUM CHLORIDE ER 20 MEQ TAB.ER PO STA (09:49)
--- NOTE | 2022-02-18 09:52 | P.PN ---
Subjective Progress Note Date: 02/18/22 Principal diagnosis: Coronary artery disease with left main disease, non-STEMI this admission. Past medical history significant for undiagnosed hyperlipidemia and hypertension, BP H, vertigo, family history of coronary artery disease, lifetime nonsmoker. POD #4 coronary artery bypass grafting 4 vessels with left internal mammary artery to left anterior descending coronary artery, saphenous vein graft to the ramus coronary artery, saphenous vein graft to the diagonal coronary artery, and a saphenous vein graft to the posterior descending coronary artery. Endoscopic harvesting of the right greater saphenous vein. Ligation of the left atrial appendage using a 35 mm Atriclip. Intraoperative epi-aortic ultrasound and transesophageal echocardiogram. Acute blood loss anemia, expected given cardiopulmonary bypass and hemodilution. Paroxysmal atrial fibrillation with RVR, a known common occurrence after cardiac surgery. Hypotension, unexpected, likely secondary to his atrial fibrillation. The patient was seen and examined today 02/18/2022 at his bedside on the cardiac stepdown unit. The patient is currently in atrial fibrillation heart rate 103 BPM. Due to the atrial fibrillation he was given an extra dose of metoprolol tartrate 25 mg by mouth 1 and Lasix 20 mg IV 1. Urine output in the last 8 hours was 1665 mL. He denies any complaints of pain or shortness of breath at this time. Remains on 2 L nasal cannula with oxygen saturations 96% and is achieving 1500 mL on his incentive spirometry. He remains hemodynamically stable and is currently on no inotropic or pressor support. The patient reports he has been up ambulating in the cardiac stepdown unit hallway this morning with standby assistance from nursing staff. His left pleural chest tube and atrial/ventricular epicardial pacemaker wires were removed without incident yesterday 02/17/2022. He remains afebrile the last 24 hours. Laboratory results this morning show a WBC count 5.4, hemoglobin 8.9, hematocrit 26.7, platelets 144, sodium 138, potassium 4.1, BUN 26, creatinine 1.09, glucose 124, calcium 8.3, and magnesium 2.4. Discharge planning is in place. Objective - Vital Signs Vital signs: Vital Signs Temp 97.6 F 02/18/22 08:15 Pulse 113 H 02/18/22 08:15 Resp 16 02/18/22 08:15 BP 101/56 02/18/22 08:15 Pulse Ox 95 02/18/22 08:15 FiO2 40 06/15/22 15:00 Intake & Output 02/17/22 02/18/22 02/18/22 18:59 06:59 18:59 Intake Total 772 400 Output Total 930 1665 Balance -158 -1265 Weight 95 kg Intake: IV 122 Lactated Ringers 1,000 ml 80 @ 20 mls/hr IV .Q24H [facility] Rx#:[id number] PRESSURE BAGS 42 Oral 650 400 Output: Chest Tube Drainage 50 Chest Tube Left 50 Urine 880 1665 Other: Voiding Method Urinal Urinal # Bowel Movements 1 ABP, PAP, CO, CI - Last Documented Arterial Blood Pressure 137/49 Pulmonary Artery Pressure 30/8 Cardiac Output 8 Cardiac Index 3.8 - Exam CONSTITUTIONAL: Sitting up to the bedside chair on the cardiac stepdown unit, appears comfortable, cooperative, no apparent acute distress. HEENT: Neck is supple, no JVD, no lymphadenopathy. RESPIRATORY: Lungs sounds essentially clear throughout, diminished to his bilateral bases. Respirations are symmetrical and nonlabored. Currently on 2 L nasal cannula with oxygen saturations 95%. Able to achieve 1500 ml on his incentive spirometry. Strong cough. CARDIOVASCULAR: Regular rhythm and rate. S1 and S2 present, negative for S3, gallop or murmur. Sternum is stable. Palpable peripheral pulses bilaterally. No calf pain or tenderness noted. Heart hugger in place with patient demonstrating appropriate use. Knee-high CHIQUI hose and sequential compression devices in place to his bilateral lower extremities. Remote telemetry showing atrial fibrillation heart rate 103 BPM. GASTROINTESTINAL: Abdomen soft, nontender, nondistended. Active bowel sounds present 4 quadrants. Tolerating diet. No guarding or rigidity. GENITOURINARY: Continues to void. Urine output 1660 morning mL in the last 8 hours. INTEGUMENTARY: Skin is warm and dry with no evidence of clubbing or cyanosis. Midline sternal incision clean dry and well approximated, covered with dry intact dressing. Right lower extremity EVH sites well approximated without redness or drainage. NEUROLOGIC: Cranial nerves II through XII intact. No focal deficits. MUSKULOSKELETAL: Able to move all extremities, strength equal bilaterally. PSYCHIATRIC: Alert and oriented to person place and time, appropriate affect, intact judgment and insight. - Allied health notes Allied health notes reviewed: nursing - Labs CBC & Chem 7: 02/18/22 08:57 02/18/22 08:57 Labs: Abnormal Lab Results - Last 24 Hours (Table) 02/17/22 02/17/22 02/17/22 Range/Units 16:19 17:16 20:22 POC Glucose (mg/dL) 117 H 138 H 121 H (70-110) mg/dL 02/17/22 02/18/22 Range/Units 22:26 05:59 POC Glucose (mg/dL) 118 H 113 H (70-110) mg/dL - Imaging and Cardiology Chest x-ray: report reviewed, image reviewed Assessment and Plan Assessment: 1. Coronary artery disease with left main disease, non-STEMI this admission, status post coronary artery bypass grafting 4 vessels 2. Undiagnosed hyperlipidemia, cholesterol 230, LDL 146, triglycerides 204 3. Hypertension 4. History of BPH, on Flomax as an outpatient 5. History of vertigo 6. Family history of coronary artery disease 7. Lifetime nonsmoker, preoperative FEV1 72% of predicted 8. Acute postoperative blood loss anemia, expected given cardiopulmonary bypass and hemodilution 9. Paroxysmal atrial fibrillation with RVR, a known common occurrence after cardiac surgery 10. Hypotension, an expected, likely secondary to his atrial fibrillation, resolved Plan: 1. Continue aspirin, statin, Plavix, and beta marcin. Will increase metoprolol tartrate to 50 mg by mouth twice a day. 3. Wean O2 as tolerated. Encourage incentive spirometry 10 times every hour w hile awake. Bronchodilators per pulmonology/critical care medicine. 4. Increase activity as tolerated. PT/OT/cardiac rehab following. 5. Will monitor daily labs and chest x-rays. Electrolyte replacement per protocol. 6. GI/DVT prophylaxis. 7. Pain control with current medication regimen. 8. Insulin management per primary care service. Patient is not diabetic, preoperative hemoglobin A1c 5.3% of predicted. 9. Continue strict accurate intake and output. Daily weights. 10. Bladder scan every 6 hours and when necessary postvoid residual. If greater than 300 mL me straight cath. 11. Increase amiodarone to 400 mg by mouth twice a day for atrial fibrillation prophylaxis. 12. Discharge planning is in place, anticipate discharge home with home health care in the next 24-48 hours. 13. Lasix 40 mg IV 1 now and potassium chloride 20 mEq by mouth 1 now. 14. More recommendations to follow based on patient's clinical course. Time with Patient: Greater than 30
--- NOTE | 2022-02-18 11:33 | P.PN ---
Subjective Progress Note Date: 02/18/22 Patient is postop day #4,coronary artery disease status post CABG, with DILLARD to LAD venous graft to ramus diagonal and PDA. Patient also had ligation of the left atrial appendage with 35mm atrial click. Patient seen this morning sitting in the chair resting comfortably. On 2 L of oxygen. He denies chest pain or increased shortness of breath. Patient has noted this morning to be in atrial fibrillation with RVR with a heart rate in the 110s to 130s. He has converted himself back to sinus rhythm with a controlled heart rate. Amiodarone was increased to 400 twice a day and Lopressor was increased to 50 twice a day. He will received a one-time dose of Lasix IV. Possibly home tomorrow Objective - Vital Signs Vital signs: Vital Signs Temp 97.6 F 02/18/22 08:15 Pulse 113 H 02/18/22 08:15 Resp 16 02/18/22 08:15 BP 101/56 02/18/22 08:15 Pulse Ox 95 02/18/22 08:15 FiO2 40 02/16/22 15:00 Intake & Output 02/17/22 02/18/22 02/18/22 18:59 06:59 18:59 Intake Total 772 400 118 Output Total 930 1665 Balance -158 -1265 118 Weight 95 kg Intake: IV 122 Lactated Ringers 1,000 ml 80 @ 20 mls/hr IV .Q24H [facility] Rx#:[id number] PRESSURE BAGS 42 Oral 650 400 118 Output: Chest Tube Drainage 50 Chest Tube Left 50 Urine 880 1665 Other: Voiding Method Urinal Urinal # Bowel Movements 1 ABP, PAP, CO, CI - Last Documented Arterial Blood Pressure 137/49 Pulmonary Artery Pressure 30/8 Cardiac Output 8 Cardiac Index 3.8 - Exam PHYSICAL EXAM: VITAL SIGNS: Reviewed. GENERAL: Well-developed in no acute distress. HEENT: Head is normocephalic. Pupils are equal, round. Sclerae anicteric. Mucous membranes of the mouth are moist. NECK: Supple. No JVD or thyromegaly RESPIRATORY: Respirations even and unlabored. Lungs diminished to auscultation bilaterally. CARDIO: Regular rate and rhythm. S1 and S2 heard. No murmur or gallops. EXTREMITIES: Normal range of motion. No clubbing or cyanosis. Peripheral pulses intact. Negative for bilateral lower extremity edema NEURO: Orientated to person, time, mood is appropriate - Labs CBC & Chem 7: 02/18/22 08:57 02/18/22 08:57 Labs: Abnormal Lab Results - Last 24 Hours (Table) 02/17/22 02/17/22 02/17/22 Range/Units 16:19 17:16 20:22 RBC (4.30-5.90) m/uL Hgb (13.0-17.5) gm/dL Hct (39.0-53.0) % Plt Count (150-450) k/uL BUN (9-20) mg/dL Glucose (74-99) mg/dL POC Glucose (mg/dL) 117 H 138 H 121 H (70-110) mg/dL Calcium (8.4-10.2) mg/dL Magnesium (1.6-2.3) mg/dL 02/17/22 02/18/22 02/18/22 Range/Units 22:26 05:59 08:57 RBC 2.90 L (4.30-5.90) m/uL Hgb 8.9 L (13.0-17.5) gm/dL Hct 26.7 L (39.0-53.0) % Plt Count 144 L (150-450) k/uL BUN (9-20) mg/dL Glucose (74-99) mg/dL POC Glucose (mg/dL) 118 H 113 H (70-110) mg/dL Calcium (8.4-10.2) mg/dL Magnesium (1.6-2.3) mg/dL 02/18/22 Range/Units 08:57 RBC (4.30-5.90) m/uL Hgb (13.0-17.5) gm/dL Hct (39.0-53.0) % Plt Count (150-450) k/uL BUN 26 H (9-20) mg/dL Glucose 124 H (74-99) mg/dL POC Glucose (mg/dL) (70-110) mg/dL Calcium 8.3 L (8.4-10.2) mg/dL Magnesium 2.4 H (1.6-2.3) mg/dL Assessment and Plan Assessment: Coronary artery disease with left main disease status post coronary artery bypass grafting 4 vessels Proximal atrial fibrillation Orthostatic hypotension History of Hypertension Hyperlipidemia Plan: Continue with increased dose of amiodarone Continue increased dose of Lopressor One-time dose of IV Lasix Continue with all other current cardiac medications telemetry monitoring Possible discharge in the next 24 hours pending clinical course Further recommendations based on clinical course The above impression and plan of care have been discussed and directed by the signing physician. Aimee Campbell, nurse practitioner, acting as scribe for signing physician.
[2022-02-18 11:40] LABS: Glucose,Whole Blood 112 mg/dL (70-110)
[2022-02-18] MEDS: ACETAMINOPHEN TAB 325 MG TAB PO PRN (12:12)
--- NOTE | 2022-02-18 13:54 | P.PN ---
Subjective Progress Note Date: 02/18/22 Principal diagnosis: POD #4 coronary artery bypass grafting 4 vessels with left internal mammary artery to left anterior descending coronary artery, saphenous vein graft to the ramus coronary artery, saphenous vein graft to the diagonal coronary artery, and a saphenous vein graft to the posterior descending coronary artery. Endoscopic harvesting of the right greater saphenous vein. Ligation of the left atrial appendage using a 35 mm Atriclip. Intraoperative epi-aortic ultrasound and transesophageal echocardiogram. On 02/14/2022 patient is seen in the intensive care unit, following his four- vessel coronary artery bypass grafting surgery. Patient had DILLARD to the LAD, SVG to the ramus, SVG to the diet, and SVG to the PDA) Patient remains intubated and sedated, on assist-control mode of ventilation with a rate of 12, tidal volume is 450, FiO2 is currently at 50% and PEEP of 5, postoperative blood gas showed pO2 of 368, pCO2 40 and pH of 7.43 and this was done on FiO2 of 100% which had since been dropped down to 50%. Postop chest x-ray shows endotracheal tube, NG tube, chest tubes, left atrial "in appropriate positions, no evidence of pneumothorax, and scattered pleural parenchymal opacities possibly reflecting atelectasis. Postoperative labs were reviewed showing white blood cell count of 6.6, hemoglobin of 11.1, platelet count of 90, INR is 1.2, sodium is 140, potassium is 4.0, chloride is 110, CO2 is 27, BUN is 13, creatinine 0.79. Patient is currently on lactated Ringer's at a rate of 50 ML per hour, Diprivan at 40 mics per kilo per minute, and nitroglycerin at 5 mics per kilo per minute. Hemodynamically patient is stable, she is in sinus mechanism with a rate of 50 BPM. Blood pressure is 113/53, cardiac output is 6.1, cardiac index is 2.9. Morales catheter is in place, patient is producing urine in the order of 120-160 ML per hour, patient has left pleural chest tube with 65 mL of sanguinous output in the Pleur-evac, and mediastinal chest tube with 100 mL of sanguinous output, no evidence of air leak. Midsternal chest tube incision, and chest tube insertion sites are clean dry and intact, left leg is [place] wrapped. Patient was reevaluated today on 02/15/2022, patient was extubated last night, shortly after he arrived from the OR. He is now sitting at a bedside chair, in no distress, he is hemodynamically stable. His cardiac output is 8.0 and cardiac index is 3.8. CVP is 5, pulmonary artery pressures 26/9. Chest x-ray showed minimal atelectasis. Expected. Continues to have left and mediastinal chest tubes remain in place, connected to low continuous wall suction. No air leak is noted. Patient is doing well with incentive spirometry rolling almost 1250 mL. His labs today are basically unremarkable including CBC and basic metabolic profile/renal profile. Patient is on 2 L nasal cannula and not in any distress. Reevaluated today, Reevaluated today on 02/16/22, patient remains in the ICU, he is on room air, O2 sats is 91%. Patient is also on amiodarone drip for new onset atrial fibrillation, expected post CABG. Patient is on insulin drip at 1.5 units per hour. IV fluid 0.9 normal saline at 20 mL per hour. Continues to have [address], patient is doing fairly well with incentive spirometry achieving 1000 up to 1500. His chest x-ray is showing mostly atelectasis, and this is expected post CABG. WBC count is 5.3 hemoglobin is 8.7 and electrolytes are normal renal profile is normal. Blood sugar is 108. Reevaluated today on 02/17/2022, patient is doing well, his chest tubes and mediastinal chest tubes have been removed. Patient is on 2 L nasal cannula, O2 sats is 94%. Chest x-ray showed minimal postoperative atelectasis as expected. Patient is in sinus rhythm, no more atrial fibrillation. Patient denies any complaints, and he is being considered for discharge tomorrow CBC is normal basic metabolic profile is normal Reevaluated today on 02/18/2022, patient developed atrial fibrillation again, rate in the range of 103. Hence the patient received an extra dose of m etoprolol 25 mg daily, and Lasix was given 20 mg IV push 1. Patient is sitting at a bedside chair, he is relatively asymptomatic. He is on 2 L nasal cannula and his O2 sats is 96%. Achieving good incentive spirometry with 1500 MLS achieved with each effort. He is hemodynamically stable. Not again in any distress. Labs are unremarkable. Renal profile is normal potassium is normal sodium is normal CBC is unremarkable hemoglobin is 8.9. Objective - Vital Signs Vital signs: Vital Signs Temp 97.6 F 02/18/22 08:15 Pulse 68 02/18/22 11:03 Resp 16 02/18/22 08:15 BP 101/56 02/18/22 08:15 Pulse Ox 95 02/18/22 08:15 FiO2 40 02/16/22 15:00 Intake & Output 02/17/22 02/18/22 02/18/22 18:59 06:59 18:59 Intake Total 772 400 118 Output Total 930 1665 Balance -158 -1265 118 Weight 95 kg Intake: IV 122 Lactated Ringers 1,000 ml 80 @ 20 mls/hr IV .Q24H [facility] Rx#:[id number] PRESSURE BAGS 42 Oral 650 400 118 Output: Chest Tube Drainage 50 Chest Tube Left 50 Urine 880 1665 Other: Voiding Method Urinal Urinal Urinal # Bowel Movements 1 ABP, PAP, CO, CI - Last Documented Arterial Blood Pressure 137/49 Pulmonary Artery Pressure 30/8 Cardiac Output 8 Cardiac Index 3.8 - Exam CONSTITUTIONAL: Revealed a 71-year-old white male in no distress. 2 L nasal cannula, O2 sats is 94% HEENT: Supple no neck masses, no JVD, no stridor. RESPIRATORY: Clear bilaterally no crackles or rhonchi or wheezes CARDIOVASCULAR: Regular rhythm Normal S1 and S2, no S3 gallop, no murmur. GASTROINTESTINAL: Soft nontender no megaly no rebound. INTEGUMENTARY: No rashes. NEUROLOGIC: Alert and oriented 3, no Focal deficit MUSKULOSKELETAL: No deformities and no limitation in range of motion PSYCHIATRIC: Normal mood affect and normal mental status examination - Labs CBC & Chem 7: 02/18/22 08:57 02/18/22 08:57 Labs: Abnormal Lab Results - Last 24 Hours (Table) 02/17/22 02/17/22 02/17/22 Range/Units 16:19 17:16 20:22 RBC (4.30-5.90) m/uL Hgb (13.0-17.5) gm/dL Hct (39.0-53.0) % Plt Count (150-450) k/uL BUN (9-20) mg/dL Glucose (74-99) mg/dL POC Glucose (mg/dL) 117 H 138 H 121 H (70-110) mg/dL Calcium (8.4-10.2) mg/dL Magnesium (1.6-2.3) mg/dL 02/17/22 02/18/22 02/18/22 Range/Units 22:26 05:59 08:57 RBC 2.90 L (4.30-5.90) m/uL Hgb 8.9 L (13.0-17.5) gm/dL Hct 26.7 L (39.0-53.0) % Plt Count 144 L (150-450) k/uL BUN (9-20) mg/dL Glucose (74-99) mg/dL POC Glucose (mg/dL) 118 H 113 H (70-110) mg/dL Calcium (8.4-10.2) mg/dL Magnesium (1.6-2.3) mg/dL 02/18/22 02/18/22 Range/Units 08:57 11:38 RBC (4.30-5.90) m/uL Hgb (13.0-17.5) gm/dL Hct (39.0-53.0) % Plt Count (150-450) k/uL BUN 26 H (9-20) mg/dL Glucose 124 H (74-99) mg/dL POC Glucose (mg/dL) 112 H (70-110) mg/dL Calcium 8.3 L (8.4-10.2) mg/dL Magnesium 2.4 H (1.6-2.3) mg/dL Assessment and Plan Assessment: Impression: Coronary artery disease with left main disease, status post CABG 4, postoperative day #4 non-ST elevation myocardial infarction on this admission. Dyslipidemia Benign essential hypertension Family history of coronary artery disease. Paroxysmal atrial fibrillation. Postoperative atelectasis, expected. Recommendation: Continue incentive spirometry and instructed to use it more often. Continue present supportive care measures Continue beta blockers Plavix statin and aspirin, patient was given an extra dose of metoprolol today. Continue GI and DVT prophylaxis. Possible discharge in the next 24 hours Time with Patient: Less than 30
[2022-02-18 17:03] LABS: Glucose,Whole Blood 109 mg/dL (70-110)
--- NOTE | 2022-02-18 18:27 | PN ---
PROGRESS NOTE CHIEF COMPLAINT: Status post 4-vessel CABG. HISTORY OF PRESENT ILLNESS: This gentleman is doing fairly well, but he is still a little bit weak and having some discomfort. He may not be discharged today. PHYSICAL EXAMINATION: His chest is clear. Cardiac exam is normal. The abdomen is soft, nontender. Extremities are normal. IMPRESSION: Status post four-vessel coronary artery bypass grafting. PLAN: Probably home today or tomorrow, pending Cardiology's and Cardiac Surgery's recommendations. MMODL / IJN: [id number] /
[2022-02-18 19:48] VITALS: RESP 16; TEMP 98.1
[2022-02-18 20:22] LABS: Glucose,Whole Blood 116 mg/dL (70-110)
[2022-02-18] MEDS: SENNOSIDES-DOCUSATE SODIUM 1 EACH TAB PO SCH (20:50)
[2022-02-18] MEDS ORDERED: METOPROLOL TARTRATE 50 MG TAB PO SCH (21:00)
[2022-02-19] MEDS: PANTOPRAZOLE 40 MG TABLET PO SCH (06:33)
[2022-02-19] MEDS: INSULIN ASPART (NovoLOG) 100 UNIT/ML VIAL SQ SCH ×2 (06:35→11:59)
[2022-02-19 06:36] LABS: Glucose,Whole Blood 109 mg/dL (70-110)
--- NOTE | 2022-02-19 08:02 | XR ---
EXAMINATION TYPE: XR chest 1V portable DATE OF EXAM: 02/19/2022 COMPARISON: Chest x-ray 02/18/2022 HISTORY: Postop cardiac surgery TECHNIQUE: Single frontal view of the chest is obtained. FINDINGS: Patient is post median sternotomy and left atrial appendage clip placement. No evident pne umothorax. Chest wall deformity with associated pleural thickening again noted at the right lung base laterally. Heart remains enlarged. Question some prominence of interstitium. IMPRESSION: Findings are similar to prior exam. There may be a component of interstitial edema, ther e is cardiomegaly and possible basilar atelectasis, difficult to exclude effusion
[2022-02-19] MEDS: IPRATROPIUM-ALBUTEROL 3 ML NEB INHALATION SCH ×2 (08:18→11:43)
[2022-02-19] MEDS: HEPARIN SODIUM,PORCINE/PF 5,000 UNIT/0.5 ML SYRINGE SQ SCH (08:28)
[2022-02-19] MEDS: CLOPIDOGREL 75 MG TAB PO SCH (08:28)
[2022-02-19] MEDS: ATORVASTATIN 80 MG TAB PO SCH (08:28)
[2022-02-19] MEDS: TAMSULOSIN 0.4 MG CAP.ER.24H PO SCH (08:28)
[2022-02-19] MEDS: ASPIRIN 325 MG TAB PO SCH (08:28)
[2022-02-19] MEDS: AMIODARONE 200 MG TAB PO SCH (08:29)
[2022-02-19 08:34] VITALS: BP 157/77
[2022-02-19 08:37] LABS: HCT 26.8 % (39.0-53.0); HGB 9.2 gm/dL (13.0-17.5); MCH 31.9 pg (25.0-35.0); MCHC 34.3 g/dL (31.0-37.0); Mean Platelet Volume 10.5; Platelet Count 160 k/uL (150-450); RBC 2.88 m/uL (4.30-5.90); RDW 13.7 % (11.5-15.5)
[2022-02-19 08:54] LABS: Calcium 8.8 mg/dL (8.4-10.2)
[2022-02-19] MEDS ORDERED: METOPROLOL TARTRATE 25 MG TAB PO SCH (09:00)
[2022-02-19] MEDS ORDERED: POTASSIUM CHLORIDE ER 10 MEQ TAB.ER.PRT PO STA (09:57)
[2022-02-19] MEDS ORDERED: FUROSEMIDE 10 MG/ML 2 ML VIAL IV STA (09:57)
--- NOTE | 2022-02-19 11:11 | P.DS ---
Providers Date of admission: 02/10/22 17:57 Expected date of discharge: 02/19/22 Attending physician: Kalin Barry Consults: 02/10/22 18:50 Consult Physician Stat Consulting Provider: Angelica Garrett Consult Reason/Comments: CAD Do you want consulting provider notified?: Yes 02/10/22 18:51 Consult Physician Stat Consulting Provider: Krzysztof Xie Consult Reason/Comments: triple vessel disease Do you want consulting provider notified?: Yes 02/11/22 13:01 Consult Physician Routine Consulting Provider: Joselito Wilkins Consult Reason/Comments: preop cabg Do you want consulting provider notified?: Already Contacted 02/13/22 09:54 Consult to Anesthesia Routine Consulting Provider: Anesthesia,Services Consult Reason/Comments: Cardiac Surgery Pre-Op 02/14/22 14:10 Consult Physician Routine Consulting Provider: Isidro Youngblood Consult Reason/Comments: Medical management Do you want consulting provider notified?: Already Contacted Primary care physician: Isidro Youngblood Hospital Course: FINAL DIAGNOSIS: 1. Coronary artery disease with left main disease, non-STEMI this admission, status post coronary artery bypass grafting 4 vessels 2. Undiagnosed hyperlipidemia, cholesterol 230, LDL 146, triglycerides 204 3. Hypertension 4. History of BPH, on Flomax as an outpatient 5. History of vertigo 6. Family history of coronary artery disease 7. Lifetime nonsmoker, preoperative FEV1 72% of predicted 8. Acute postoperative blood loss anemia, expected given cardiopulmonary bypass and hemodilution 9. Paroxysmal atrial fibrillation with RVR, a known common occurrence after cardiac surgery 10. Hypotension, unexpected, likely secondary to his atrial fibrillation, resolved PRINCIPAL PROCEDURE: 1. Coronary artery bypass grafting 4 vessels with left internal mammary artery to the left anterior setting coronary artery, saphenous vein graft to the ramus coronary artery, saphenous vein graft to the diagonal coronary artery and a saphenous vein graft to the posterior descending coronary artery 2. Endoscopic harvesting of the right greater saphenous vein 3. Ligation of the left atrial appendage using a 35 mm Atriclip 4. Intraoperative epi-aortic ultrasound 5. Intraoperative transesophageal echocardiogram HISTORY OF PRESENT ILLNESS: This is a 71-year-old gentleman who follows with Dr. Isidro Youngblood for his primary care service. He reports he has not seen his primary care physician in the past 2 years. He presented to [facility] emergency department on 02/09/2022 with complaints of dizziness, shortness of breath, headache and neck pain. The patient does have a history of dizziness in which he takes Antivert to treat. At the time of his presentation he denied any complaints of chest pain. Subsequently, a 12-lead EKG was completed which demonstrated normal sinus rhythm with nonspecific ST changes. Labs were drawn which showed elevated troponins and the patient was ruled in for a non-ST elevated myocardial infarction. Cardiology was consulted and he was taken to the equipment operator/laborer/supervisor where he underwent a heart catheterization which demonstrated a distal left main stenosis of 70-80%, a 99% stenosis to his proximal left anterior ascending coronary artery, a 90% stenosis to his distal left anterior descending coronary artery, an 80% stenosis to his second diagonal coronary artery, a 40-50% stenosis to his left circumflex coronary artery, a 30- 40% stenosis to his mid right coronary artery, and a 99% stenosis to his distal right coronary artery at the bifurcation. The patient also had a transthoracic 2-D echocardiogram completed which showed him to have a normal left ventricular systolic function with an ejection fraction of 55-60%, mild aortic valve insufficiency, mild mitral valve and mild tricuspid valve regurgitation. Subsequently due to the findings on his heart catheterization the patient was transferred from [facility] to [facility]. A consult was placed to cardiothoracic surgery for further evaluation and treatment recommendations including myocardial revascularization surgery. Dr. Barry met with the patient, and the patient's , discussed findings on the cardiac catheterization, discussed treatment options including myocardial revascularization surgery. Risks and benefits of surgery were discussed including the STS risk score and knowing and understanding the risks the patient wished to proceed with the surgical option. HOSPITAL COURSE: The patient was admitted to the hospital and on 02/14/2022 after consent was obtained, the patient was taken to the preoperative area, prepared in the usual fashion and subsequently taken to the operating room where Dr. Kalin Barry performed a coronary artery bypass grafting 4 vessels and ligation of the left atrial appendage using a 35 mm Atriclip. Upon completion of the surgery the patient was transferred to cardiovascular intensive care unit where he was recovered and monitored hemodynamically. He was extubated, all lines, tubes and supportive drips were discontinued when appropriate and he was transferred to the third floor cardiac stepdown unit for further monitoring and rehabilitation. His oxygen was titrated down, he continued to work with physical and occupational therapy, was tolerating an oral diet, his pain was we ll-controlled and he was ready to be discharged home on postoperative day #5 with [facility] care. Postoperatively the patient did have some paroxysmal atrial fibrillation which was treated with medical therapy, and currently the patient is in normal sinus rhythm. The patient and his have received written and verbal instructions regarding his medications, activity restrictions, signs and symptoms requiring physician notification and his follow-up appointments. Plan - Discharge Summary Discharge Rx Participant: Yes New Discharge Prescriptions: New Amiodarone [Cordarone] 400 mg PO BID #47 tab Atorvastatin [Lipitor] 80 mg PO DAILY #30 tab Clopidogrel [Plavix] 75 mg PO DAILY #30 tab Sennosides-Docusate Sodium [Senokot-S] 2 each PO HS #14 tab Acetaminophen Tab [Tylenol] 650 mg PO Q4HR PRN tab PRN Reason: Fever And/ Or Pain Furosemide [Lasix] 20 mg PO DAILY 5 Days #5 tab Aspirin 325 mg PO DAILY #30 tab Metoprolol Tartrate [Lopressor] 25 mg PO BID #60 tab Pantoprazole [Protonix] 40 mg PO AC-BRKFST #30 tab Potassium Chloride ER [K-Dur 10] 10 meq PO DAILY 5 Days #5 tab Continue Tamsulosin HCl [Flomax] 0.4 mg PO HS Discharge Medication List Tamsulosin HCl [Flomax] 0.4 mg PO HS 02/10/22 [History] Acetaminophen Tab [Tylenol] 650 mg PO Q4HR PRN tab 02/19/22 [Rx] Amiodarone [Cordarone] 400 mg PO BID #47 tab 02/19/22 [Rx] Aspirin 325 mg PO DAILY #30 tab 02/19/22 [Rx] Atorvastatin [Lipitor] 80 mg PO DAILY #30 tab 02/19/22 [Rx] Clopidogrel [Plavix] 75 mg PO DAILY #30 tab 02/19/22 [Rx] Furosemide [Lasix] 20 mg PO DAILY 5 Days #5 tab 02/19/22 [Rx] Metoprolol Tartrate [Lopressor] 25 mg PO BID #60 tab 02/19/22 [Rx] Pantoprazole [Protonix] 40 mg PO AC-BRKFST #30 tab 02/19/22 [Rx] Potassium Chloride ER [K-Dur 10] 10 meq PO DAILY 5 Days #5 tab 02/19/22 [Rx] Sennosides-Docusate Sodium [Senokot-S] 2 each PO HS #14 tab 02/19/22 [Rx] Follow up Appointment(s)/Referral(s): Tolu Alejo MD [STAFF PHYSICIAN] - 10 Days Isidro Youngblood MD [Primary Care Provider] - 1 Week Ruth Murdock NPC [Nurse Practitioner] - 2 Weeks Gama García NPC [Nurse Practitioner] - 1 Week (Aleksandra from the office will call with a follow-up appointment. Please follow up at [address] [place] [address], [address], [facility], [address]. Office number is a [phone].) [facility], [NON-STAFF] - 1 Week Kalin Barry MD [STAFF PHYSICIAN] - 1 Week (Aleksandra from the office will call with a follow-up appointment. ) Ambulatory/Diagnostic Orders: Complete Blood Count w/diff [LAB.AMB] Time Frame: 02/22/22, Facility: [facility], Location: [facility] Comprehensive Metabolic Panel [LAB.AMB] Time Frame: 02/22/22, Facility: [facility], Location: [facility] Activity/Diet/Wound Care/Special Instructions: DISCHARGE INSTRUCTIONS: 1. No driving for 4 weeks, or until physician gives their ok. 2. The patient should sleep in their own bed, no medical bed needed. 3. Stairs are not an issue. If the bedroom is upstairs, it is advised that the patient go up at night and down in the morning for the first week. Go slowly, using handrail and take 1 step at a time. 4. CHIQUI hose are to be worn for 30 days or until physician discontinues. 5. Heart hugger is to be worn 100% of the time until physician discontinues.(except when showering) 6. No lifting, pushing, or pulling more than 10 pounds for 12 weeks. The ysician will advise of any restriction changes. 7. The patient is expected to continue the prescribed walking program. 8. Continue pain control per as needed orders. 9. Continue with incentive spirometry and splinting/heart hugger until otherwise directed by the physician. 10. Must shower daily using liquid antibacterial soap and a separate white washcloth for each individual incision. 11. Routine sternal incision care. No powders, lotions, ointments on incisions. No dressings are necessary on incisions unless they are draining. Dermabond tape is to remain on sternal incision until surgeon follow-up. 12. Please call surgeon/STEEL RULE DIE MAKER for temp greater than 101 F or purulent drainage from incisions. 13. You should weigh yourself daily, record and bring log with you to follow up appointments. 14. All prescriptions given by surgeon for 30 days. Refills need to be filled through furnace repairer helper/primary care physician. 15. A Red armband has been placed on the patient. It should be worn for 30 days post surgery and will be removed by the cardiac surgeons. If an ER visit is necessary, please make sure the number on the Red armband is called. 16. You have been referred to and are expected to begin Cardiac Rehab in approximately 4-6 weeks. HOME HEALTH SERVICES TO PROVIDE: RN SKILLED HOME CARE SERVICES FOR POST-OP SURGICAL PATIENTS WITH THE FOLLOWING: Coronary Artery Bypass Surgery (CABG), Mitral Valve Replacement/Repair ( MVR), Aortic Valve Replacement/Repair (AVR) RN TO CONTINUE EDUCATION FROM ``ROAD TO A HEALTH HEART PATIENT EDUCATION MANUAL (GIVEN TO PATIENT IN THE HOSPITAL) MEDICATION RECONCILIATION WITH EDUCATION NEEDED ON FIRST HOME VISIT EMPHASIZE IMPORTANCE OF WEARING BREAST SUPPORT/HEART HUGGER ENCOURAGE USE OF INCENTIVE SPIROMETER 10 X EVERY HOUR WHILE AWAKE ENCOURAGE UTILIZATION OF LOWER EXTREMITY COMPRESSION STOCKINGS/CHIQUI HOSE and ELEVATE LEGS ABOVE LEVEL OF HEART WHILE AT REST. ENCOURAGE AMBULATION 3-5x/day INCREASING TOLERATES, WHILE AVOIDING EXTREMES IN TEMPERATURE FREQUENCY: RN TO OPEN THE PATIENT WITHIN 24 HOURS OF DISCHARGE FROM THE HOSPITAL WITH TELEHEALTH INSTALLED AT [facility], RN TO VISIT 2-3 X A WEEK FOR 4 WEEKS ESTABLISHED BY PATIENT NEEDS. LABORATORY: CBC, CMP TO BE DRAWN ON THE THIRD DAY HOME, (RAN STAT) FAX RESULTS TO [phone]. TELEHEALTH PARAMETERS: WEIGHT: NOTIFY MD OF WEIGHT GAIN OF 2 LBS IN 24 HOURS OR 5 LBS IN ONE WEEK HR: NOTIFY MD OF HR <55 BPM OR HR>100 BPM BP: NOTIFY MD IF BP <90/55 OR BP>140/100 O2 SAT: NOTIFY MD IF PO2<93% ON ROOM AIR SEND TELEHEALTH REPORT TO MANAGEMENT PSYCHOLOGIST AND CARDIOVASCULAR SURGEON THE FIRST WEEK OF CARE AND THEN BI-WEEKLY. PLEASE ADDITIONALLY COMMUNICATE ANY ABNORMALS AND NEW FINDINGS TO THE SURGEONS OFFICE. Discharge Disposition: HOME WITH HOME HEALTH SERVICES
[2022-02-19 11:38] LABS: Glucose,Whole Blood 102 mg/dL (70-110)
[2022-02-19 11:46] VITALS: PULSE 62
--- NOTE | 2022-02-19 12:34 | P.PN ---
Subjective Progress Note Date: 02/19/22 Principal diagnosis: POD #5 coronary artery bypass grafting 4 vessels with left internal mammary artery to left anterior descending coronary artery, saphenous vein graft to the ramus coronary artery, saphenous vein graft to the diagonal coronary artery, and a saphenous vein graft to the posterior descending coronary artery. Endoscopic harvesting of the right greater saphenous vein. Ligation of the left atrial appendage using a 35 mm Atriclip. Intraoperative epi-aortic ultrasound and transesophageal echocardiogram. On 02/14/2022 patient is seen in the intensive care unit, following his four- vessel coronary artery bypass grafting surgery. Patient had DILLARD to the LAD, SVG to the ramus, SVG to the diet, and SVG to the PDA) Patient remains intubated and sedated, on assist-control mode of ventilation with a rate of 12, tidal volume is 450, FiO2 is currently at 50% and PEEP of 5, postoperative blood gas showed pO2 of 368, pCO2 40 and pH of 7.43 and this was done on FiO2 of 100% which had since been dropped down to 50%. Postop chest x-ray shows endotracheal tube, NG tube, chest tubes, left atrial "in appropriate positions, no evidence of pneumothorax, and scattered pleural parenchymal opacities possibly reflecting atelectasis. Postoperative labs were reviewed showing white blood cell count of 6.6, hemoglobin of 11.1, platelet count of 90, INR is 1.2, sodium is 140, potassium is 4.0, chloride is 110, CO2 is 27, BUN is 13, creatinine 0.79. Patient is currently on lactated Ringer's at a rate of 50 ML per hour, Diprivan at 40 mics per kilo per minute, and nitroglycerin at 5 mics per kilo per minute. Hemodynamically patient is stable, she is in sinus mechanism with a rate of 50 BPM. Blood pressure is 113/53, cardiac output is 6.1, cardiac index is 2.9. Morales catheter is in place, patient is producing urine in the order of 120-160 ML per hour, patient has left pleural chest tube with 65 mL of sanguinous output in the Pleur-evac, and mediastinal chest tube with 100 mL of sanguinous output, no evidence of air leak. Midsternal chest tube incision, and chest tube insertion sites are clean dry and intact, left leg is Everett wrapped. Patient was reevaluated today on 02/15/2022, patient was extubated last night, shortly after he arrived from the OR. He is now sitting at a bedside chair, in no distress, he is hemodynamically stable. His cardiac output is 8.0 and cardiac index is 3.8. CVP is 5, pulmonary artery pressures 26/9. Chest x-ray showed minimal atelectasis. Expected. Continues to have left and mediastinal chest tubes remain in place, connected to low continuous wall suction. No air leak is noted. Patient is doing well with incentive spirometry rolling almost 1250 mL. His labs today are basically unremarkable including CBC and basic metabolic profile/renal profile. Patient is on 2 L nasal cannula and not in any distress. Reevaluated today, Reevaluated today on 02/16/22, patient remains in the ICU, he is on room air, O2 sats is 91%. Patient is also on amiodarone drip for new onset atrial fibrillation, expected post CABG. Patient is on insulin drip at 1.5 units per hour. IV fluid 0.9 normal saline at 20 mL per hour. Continues to have [address], patient is doing fairly well with incentive spirometry achieving 1000 up to 1500. His chest x-ray is showing mostly atelectasis, and this is expected post CABG. WBC count is 5.3 hemoglobin is 8.7 and electrolytes are normal renal profile is normal. Blood sugar is 108. Reevaluated today on 02/17/2022, patient is doing well, his chest tubes and mediastinal chest tubes have been removed. Patient is on 2 L nasal cannula, O2 sats is 94%. Chest x-ray showed minimal postoperative atelectasis as expected. Patient is in sinus rhythm, no more atrial fibrillation. Patient denies any complaints, and he is being considered for discharge tomorrow CBC is normal basic metabolic profile is normal Reevaluated today on 02/18/2022, patient developed atrial fibrillation again, rate in the range of 103. Hence the patient received an extra dose of m etoprolol 25 mg daily, and Lasix was given 20 mg IV push 1. Patient is sitting at a bedside chair, he is relatively asymptomatic. He is on 2 L nasal cannula and his O2 sats is 96%. Achieving good incentive spirometry with 1500 MLS achieved with each effort. He is hemodynamically stable. Not again in any distress. Labs are unremarkable. Renal profile is normal potassium is normal sodium is normal CBC is unremarkable hemoglobin is 8.9. Reevaluated today on 02/19/22, patient is doing well, asymptomatic, on room air, in sinus rhythm, patient is being considered for discharge home today. Objective - Vital Signs Vital signs: Vital Signs Temp 98.1 F 02/18/22 19:43 Pulse 62 02/19/22 11:55 Resp 16 02/19/22 08:33 BP 157/77 02/19/22 08:33 Pulse Ox 100 02/19/22 08:33 FiO2 40 02/16/22 15:00 Intake & Output 02/18/22 02/19/22 02/19/22 18:59 06:59 18:59 Intake Total 716 Output Total 550 Balance 166 Weight 93.7 kg Intake: Oral 716 Output: Urine 550 Other: Voiding Method Urinal Urinal Urinal ABP, PAP, CO, CI - Last Documented Arterial Blood Pressure 137/49 Pulmonary Artery Pressure 30/8 Cardiac Output 8 Cardiac Index 3.8 - Exam CONSTITUTIONAL: Revealed a 71-year-old white male in no distress. On room air. HEENT: Supple no neck masses, no JVD, no stridor. RESPIRATORY: Clear bilaterally no crackles or rhonchi or wheezes CARDIOVASCULAR: Regular rhythm Normal S1 and S2, no S3 gallop, no murmur. GASTROINTESTINAL: Soft nontender no megaly no rebound. INTEGUMENTARY: No rashes. NEUROLOGIC: Alert and oriented 3, no Focal deficit MUSKULOSKELETAL: No deformities and no limitation in range of motion PSYCHIATRIC: Normal mood affect and normal mental status examination - Labs CBC & Chem 7: 02/19/22 08:25 02/19/22 08:25 Labs: Abnormal Lab Results - Last 24 Hours (Table) 02/18/22 02/19/22 02/19/22 Range/Units 20:20 08:25 08:25 RBC 2.88 L (4.30-5.90) m/uL Hgb 9.2 L (13.0-17.5) gm/dL Hct 26.8 L (39.0-53.0) % BUN 25 H (9-20) mg/dL Glucose 104 H (74-99) mg/dL POC Glucose (mg/dL) 116 H (70-110) mg/dL Assessment and Plan Assessment: Impression: Coronary artery disease with left main disease, status post CABG 4, postoperative day #5/ non-ST elevation myocardial infarction on this admission. Dyslipidemia Benign essential hypertension Family history of coronary artery disease. Paroxysmal atrial fibrillation. Postoperative atelectasis, expected. Recommendation: Continue incentive spirometry agree with discharge planning today Continue beta blockers Plavix statin and aspirin, patient was given an extra dose of metoprolol today. Patient to be discharged home today on follow-up on outpatient basis. Time with Patient: Less than 30
--- NOTE | 2022-02-19 20:11 | DS ---
DISCHARGE SUMMARY CHIEF COMPLAINT: Dizziness. HISTORY OF PRESENT ILLNESS AND PHYSICAL EXAMINATION: Details of this man's history and physical can be found in the initial workup. LABORATORY STUDIES: While he was in the hospital he had laboratory studies, details of which can be found in the laboratory section of his chart. COURSE IN THE HOSPITAL: After he was transferred from [facility], he was addressed by Cardiac Surgery and the decision was made that he should undergo an open-heart procedure with coronary artery bypass grafting. This was performed, and four vessels were bypassed. He did well postoperatively. He was stabilized and able to be discharged on February 19. He will follow up with Thoracic Surgery and Cardiology as well as my office. FINAL DIAGNOSIS: 1. Triple-vessel coronary artery disease. 2. Hyperlipidemia. OPERATION: Coronary artery bypass grafting. CONSULTATIONS: 1. Cardiac Surgery. 2. Cardiology. He is improved SAHIL / MIKE: [id number] /
--- NOTE | 2022-02-20 08:45 | P.PN ---
Subjective Patient is postop day #5,coronary artery disease status post CABG, with DILLARD to LAD venous graft to ramus diagonal and PDA. Patient also had ligation of the left atrial appendage with 35mm atrial click. Patient seen this morning sitting in bed resting comfortably. Patient has been transitioned to room air and is tolerating well. He denies chest pain or increased shortness of breath. She has had no more episodes of atrial fibrillation with RVR and heart rate is controlled and he remains in sinus rhythm will continue with current dose of am iodarone and Lopressor. Plan is for patient to be discharged afternoon Objective - Vital Signs Vital signs: Vital Signs Temp 98.1 F 02/18/22 19:43 Pulse 62 02/19/22 11:55 Resp 16 02/19/22 08:33 BP 157/77 02/19/22 08:33 Pulse Ox 100 02/19/22 08:33 FiO2 40 02/16/22 15:00 Intake & Output 02/18/22 02/19/22 02/19/22 18:59 06:59 18:59 Intake Total 716 Output Total 550 Balance 166 Weight 93.7 kg Intake: Oral 716 Output: Urine 550 Other: Voiding Method Urinal Urinal Urinal ABP, PAP, CO, CI - Last Documented Arterial Blood Pressure 137/49 Pulmonary Artery Pressure 30/8 Cardiac Output 8 Cardiac Index 3.8 - Exam PHYSICAL EXAM: VITAL SIGNS: Reviewed. GENERAL: Well-developed in no acute distress. HEENT: Head is normocephalic. Pupils are equal, round. Sclerae anicteric. Mucous membranes of the mouth are moist. NECK: Supple. No JVD or thyromegaly RESPIRATORY: Respirations even and unlabored. Lungs diminished to auscultation bilaterally. CARDIO: Regular rate and rhythm. S1 and S2 heard. No murmur or gallops. EXTREMITIES: Normal range of motion. No clubbing or cyanosis. Peripheral pulses intact. Negative for bilateral lower extremity edema NEURO: Orientated to person, time, mood is appropriate - Labs CBC & Chem 7: 02/19/22 08:25 02/19/22 08:25 Labs: Abnormal Lab Results - Last 24 Hours (Table) 02/18/22 02/19/22 02/19/22 Range/Units 20:20 08:25 08:25 RBC 2.88 L (4.30-5.90) m/uL Hgb 9.2 L (13.0-17.5) gm/dL Hct 26.8 L (39.0-53.0) % BUN 25 H (9-20) mg/dL Glucose 104 H (74-99) mg/dL POC Glucose (mg/dL) 116 H (70-110) mg/dL Assessment and Plan Assessment: Coronary artery disease with left main disease status post coronary artery bypass grafting 4 vessels Proximal atrial fibrillation Orthostatic hypotension History of Hypertension Hyperlipidemia Plan: Continue with dose of amiodarone Continue dose of Lopressor Continue with all other current cardiac medications telemetry monitoring Patient stable for discharge The above impression and plan of care have been discussed and directed by the signing physician. Aimee Campbell, nurse practitioner, acting as scribe for signing physician.
== END 2022-02-19 14:36 | disposition home health service (06) | DRG 235 ==
LOC: 3SCARD 17:57 → 2SICU 02-14 06:21 → 3SCARD 02-17 17:12
PROVIDERS: ADMIT Surgery; ATTEND Surgery
PROC: 02100Z9 Bypass Coronary Artery, One Artery from Left Internal Mammary, Open Approach (ICD-10-PCS; principal; 2022-02-14 08:00)
PROC: 021209W Bypass Coronary Artery, Three Arteries from Aorta with Autologous Venous Tissue, Open Approach (ICD-10-PCS; principal; 2022-02-14 08:00)
PROC: B24BZZ4 Ultrasonography of Heart with Aorta, Transesophageal (ICD-10-PCS; principal; 2022-02-14 08:00)
PROC: 02L70CK Occlusion of Left Atrial Appendage with Extraluminal Device, Open Approach (ICD-10-PCS; principal; 2022-02-14 08:00)
PROC: 06BP4ZZ Excision of Right Saphenous Vein, Percutaneous Endoscopic Approach (ICD-10-PCS; principal; 2022-02-14 08:00)
DX: I25.10 Atherosclerotic heart disease of native coronary artery without angina pectoris (principal); I50.31 Acute diastolic (congestive) heart failure; I21.4 Non-ST elevation (NSTEMI) myocardial infarction; D62 Acute posthemorrhagic anemia; J98.11 Atelectasis; I11.0 Hypertensive heart disease with heart failure; I48.0 Paroxysmal atrial fibrillation; Z20.822 Contact with and (suspected) exposure to COVID-19; I95.1 Orthostatic hypotension; I25.84 Coronary atherosclerosis due to calcified coronary lesion; I16.0 Hypertensive urgency; E78.5 Hyperlipidemia, unspecified; I08.9 Rheumatic multiple valve disease, unspecified; R00.1 Bradycardia, unspecified; H83.09 Labyrinthitis, unspecified ear; N40.0 Benign prostatic hyperplasia without lower urinary tract symptoms; M54.2 Cervicalgia; R51.9 Headache, unspecified; Z79.899 Other long term (current) drug therapy; Z87.2 Personal history of diseases of the skin and subcutaneous tissue; Z87.39 Personal history of other diseases of the musculoskeletal system and connective tissue; Z98.890 Other specified postprocedural states; Z71.3 Dietary counseling and surveillance; Z82.49 Family history of ischemic heart disease and other diseases of the circulatory system
CPT/HCPCS: 71045; 71046; 80048; 80053; 80061; 80074; 81003; 82330; 82805; 83036; 83735; 84443; 85025; 85027; 85520; 85610; 85730; 86850; 86891; 86900; 86901; 86920; 87070; 87635; 93880; 93970; 94002; 94150; 94640; 94760

== ENCOUNTER → 2022-03-01 | Outpatient (CLI) | payer MEDICARE ==
--- NOTE | 2022-03-02 04:53 | XR ---
EXAMINATION TYPE: XR chest 2V DATE OF EXAM: 03/01/2022 COMPARISON: 02/19/2022 HISTORY: 71-year-old male [id number], [id number], lightheaded, shortness of breath, weakness. Open heart surgery 2 weeks ago. TECHNIQUE: Frontal and lateral views FINDINGS: Median sternotomy wires with post-CABG clips in the mediastinum. There seems to be some chronic defor mity to the lower lateral right thoracic wall, possibly related to prior trauma or thoracotomy. Clini tami correlate. Left heart margin obscured by adjacent pleural parenchymal opacity. There appears to be a increased small left pleural effusion with underlying opacity. Similar trace right effusion sug gested. IMPRESSION: 1. Post-CABG changes. Query prior right-sided thoracotomy; clinically correlate with any prior right- sided thoracic surgery or trauma history. 2. Increasing small left pleural effusion with adjacent atelectasis and/or consolidation.
== END | disposition home or self-care (01) ==
LOC: RADXRMAIN 12:41
PROVIDERS: ATTEND Internal Medicine Interventional Cardiology
DX: J90 Pleural effusion, not elsewhere classified (principal); Z95.1 Presence of aortocoronary bypass graft
CPT/HCPCS: 71046

== ENCOUNTER → 2022-03-01 | Outpatient (CLI) | payer MEDICARE ==
[2022-03-01 18:03] LABS: HCT 33.1 % (39.6-50.0); HGB 10.2 g/dL (13.0-17.0); MCH 29.1 pg (27.0-32.0); MCHC 30.8 g/dL (32.0-37.0); MCV 94.3 fL (80.0-97.0); Mean Platelet Volume 10.8 fL (9.5-12.2); NRBC Per 100 WBC 0 /100 WBCS (0.0-0.0); Platelet Count 313 X 10*3/uL (140-440); RBC 3.51 X 10*6/uL (4.40-5.60); RDW 13.7 % (11.5-14.5); WBC 8.02 X 10*3/uL (4.50-10.00)
[2022-03-01 18:11] LABS: African American GFR (CKD) 71.1 (60.0-200.0); Albumin 3.9 g/dL (3.8-4.9); Albumin/Globulin Ratio 1.77 (1.60-3.17); Anion Gap 11.2 mmol/L (10.00-18.00); BUN/Creat Ratio 11.67 Ratio (12.00-20.00); Calcium 9.3 mg/dL (8.7-10.3); Carbon Dioxide 26.8 mmol/L (20.0-27.5); Globulin 2.2 g/dL (1.6-3.3); Non-African American GFR(CKD) 61.3 (60.0-200.0); Potassium 4.3 mmol/L (3.5-5.5); Total Bilirubin 0.4 mg/dL (0.30-1.20); Total Protein 6.1 g/dL (6.2-8.2)
== END | disposition home or self-care (01) ==
LOC: LABWHC1 12:22
PROVIDERS: ATTEND Internal Medicine Interventional Cardiology
DX: R06.01 Orthopnea (principal); Z95.1 Presence of aortocoronary bypass graft
CPT/HCPCS: 36415; 80053; 83880; 85027

== ENCOUNTER → 2022-04-15 | Outpatient (CLI) | payer MEDICARE ==
[2022-04-15 14:49] LABS: ALT 34 U/L (10-49); AST 16 U/L (14-35); Albumin 4.2 g/dL (3.8-4.9); Albumin/Globulin Ratio 1.83 (1.60-3.17); Alkaline Phosphatase 104 U/L (41-126); BUN/Creat Ratio 12.09 Ratio (12.00-20.00); Blood Urea Nitrogen 13.3 mg/dL (9.0-27.0); Calcium 9.4 mg/dL (8.7-10.3); Carbon Dioxide 25.5 mmol/L (20.0-27.5); Chloride 106 mmol/L (96-109); Chol/HDL Ratio 3.15 Ratio; Globulin 2.3 g/dL (1.6-3.3); Glucose 87 mg/dL (70-110); LDL Cholesterol,Calculated 58.7 mg/dL (0.0-131.0); Non-African American GFR(CKD) 68.1 (60.0-200.0); Potassium 4.2 mmol/L (3.5-5.5); Sodium 141 mmol/L (135-145); Total Protein 6.5 g/dL (6.2-8.2)
== END | disposition home or self-care (01) ==
LOC: LABWHC1 09:22
PROVIDERS: ATTEND Internal Medicine Interventional Cardiology
DX: E78.2 Mixed hyperlipidemia (principal)
CPT/HCPCS: 36415; 80053; 80061

== ENCOUNTER → 2023-11-29 | Outpatient (CLI) | payer MEDICARE ==
[2023-11-29 16:50] LABS: ALT 30 U/L (10-49); AST 20 U/L (14-35); Albumin 4.2 g/dL (3.8-4.9); Albumin/Globulin Ratio 2.33 Ratio (1.60-3.17); Alkaline Phosphatase 170 U/L (41-126); BUN/Creat Ratio 14.56 Ratio (12.00-20.00); Blood Urea Nitrogen 13.1 mg/dL (9.0-27.0); Calcium 9.5 mg/dL (8.7-10.3); Carbon Dioxide 30.7 mmol/L (21.6-31.8); Chloride 106 mmol/L (96-109); Chol/HDL Ratio 2.54 Ratio; Globulin 1.8 g/dL (1.6-3.3); Glucose 103 mg/dL (70-110); LDL Cholesterol,Calculated 91.6 mg/dL (0.0-131.0); Potassium 4.4 mmol/L (3.5-5.5); Sodium 146 mmol/L (135-145); Total Bilirubin 0.7 mg/dL (0.3-1.2)
== END | disposition home or self-care (01) ==
LOC: LABWHC1 07:30
PROVIDERS: ATTEND Internal Medicine Interventional Cardiology
DX: E78.2 Mixed hyperlipidemia (principal)
CPT/HCPCS: 36415; 80053; 80061

== ENCOUNTER → 2024-09-23 | Outpatient (CLI) | payer MEDICARE ==
[2024-09-23 15:18] LABS: ALT 26 U/L (10-49); AST 23 U/L (14-35); Albumin/Globulin Ratio 2.67 Ratio (1.60-3.17); Alkaline Phosphatase 287 U/L (41-126); BUN/Creat Ratio 12.57 Ratio (12.00-20.00); Blood Urea Nitrogen 8.8 mg/dL (9.0-27.0); Calcium 8.1 mg/dL (8.7-10.3); Carbon Dioxide 24.9 mmol/L (21.6-31.8); Chloride 112 mmol/L (96-109); Chol/HDL Ratio 3.43 Ratio; Globulin 1.5 g/dL (1.6-3.3); Glucose 89 mg/dL (70-110); LDL Cholesterol,Calculated 70.6 mg/dL (0.0-131.0); Potassium 4.5 mmol/L (3.5-5.5); Sodium 145 mmol/L (135-145); Total Bilirubin 0.5 mg/dL (0.3-1.2); Total Protein 5.5 g/dL (6.2-8.2)
== END | disposition home or self-care (01) ==
LOC: LABWHC1 09:43
PROVIDERS: ATTEND Internal Medicine Interventional Cardiology
DX: I10 Essential (primary) hypertension (principal); E78.2 Mixed hyperlipidemia
CPT/HCPCS: 36415; 80053; 80061